=== PATIENT | female | born 1970 | race Caucasian/White ===

== ENCOUNTER 2019-01-23 09:06 | Outpatient (CLI) | payer BC, SELFPAY ==
[2019-01-23 09:35] LABS: Absolute Basophil Count 0.04 k/cumm (0.0-0.2); Absolute Eosinophil Count 0.21 k/cumm (0.0-0.7); Absolute Monocyte Count 0.39 k/cumm (0.11-0.7); Absolute Neutrophil Count 2.65 k/cumm (1.2-6.7); Basophils % 0.7; Eosinophils % 3.6; HCT 39.1 % (36.0-46.0); HGB 12.9 g/dL (12.0-15.5); Lymphocytes % 43.2; Mean Corpuscular Hemoglobin 29.5 pg (27.0-33.0); Mean Corpuscular Volume 89.3 fL (80-95); Mean Platelet Volume 9.4 fL (8.0-11.0); Monocytes % 6.7; Neutrophils % 45.8; Platelet Count 282 x1000/uL (130-400); RBC 4.38 m/cumm (4.00-5.20); RBC Distribution Width 13.2 % (11.7-14.6); White Blood Cell Count 5.79 k/cumm (4.4-10.8)
[2019-01-23 10:42] LABS: ALT 27 U/L (12-78); AST 18 U/L (15-37); Albumin 3.7 g/dL (3.4-5.0); Alkaline Phosphatase 93 U/L (46-116); Anion Gap 9.4 mmol/L (3-11); BUN 15 mg/dL (7-18); Bilirubin, Total 0.4 mg/dL (0.2-1.0); CO2 27.6 mmol/L (21.0-32.0); CREATININE 0.66 mg/dL (0.55-1.02); Calcium 8.7 mg/dL (8.5-10.1); Chloride 103 mmol/L (98-107); Cholesterol 198 mg/dL (50-200); Glucose 106 mg/dL (70-100); HDL Cholesterol 56 mg/dL (40-60); LDL CHOLESTEROL 133 mg/dL (<100); Potassium 4.2 mmol/L (3.5-5.1); Sodium 140 mmol/L (136-145); TSH 1.27 uIU/mL (0.358-3.74); Total Protein 7.1 g/dL (6.4-8.2); Triglyceride 36 mg/dL (30-150)
[2019-01-23 11:16] LABS: FREE T4 0.92 ng/dL (0.76-1.46)
[2019-01-24 16:58] LABS: T3,Free 3.4 pg/ml (2.8-5.3)
[2019-01-25 07:14] LABS: Hemoglobin A1C 5.7 % (4.5-6.2)
[2019-01-25 08:11] LABS: Vitamin D 25 Total 81.4 ng/ml (30-100)
[2019-01-25 15:16] LABS: C-Peptide 2.8 ng/mL (1.1 - 4.4)
[2019-01-28 10:44] LABS: Insulin 10.8 uU/mL (<29)
== END 2019-01-23 09:26 ==
PROVIDERS: PCP Internal Medicine; Visit Provider Naturopath
DX: Z00.00 Encounter for general adult medical examination without abnormal findings (principal); R53.83 Other fatigue; E55.9 Vitamin D deficiency, unspecified; E11.65 Type 2 diabetes mellitus with hyperglycemia; L65.9 Nonscarring hair loss, unspecified; Z13.9 Encounter for screening, unspecified; Z13.220 Encounter for screening for lipoid disorders; E66.9 Obesity, unspecified
CPT/HCPCS: 36415; 80053; 80061; 82306; 83721; 83036; 83525; 84439; 84443; 84481; 84681; 85025

== ENCOUNTER 2019-01-27 12:51 | Observation (INO) | payer BC, SELFPAY ==
[2019-01-27] VITALS (7 sets, daily range): BP systolic 140–191; BP diastolic 82–111; PULSE 56–68; RESP 16–19; TEMP 36.1–37; O2SAT 94–100
--- NOTE | 2019-01-27 13:04 | W.ED.GENAD ---
Discharge Plan Disposition Patient Disposition: [facility] INPATIENT Condition: Good Discharge Details Chief Complaint: GenMedical Clinical Impression: Hypertension, uncontrolled, Headache, Neck pain on left side, Left shoulder pain Admit Date/Time: 01/27/19 15:16 Admit Provider: Dominique Steward Attending Provider: Dominique Steward Primary Care Provider: Tolu Mattson ED Provider: Omar Tate Medical Decision Making Patient presenting with symptomatic hypertension. She is relating some left jaw/neck/shoulder pain but it does not seem to be exertional. She has no chest pressure or pain. Despite taking medications including extra dose of losartan and restarting her amlodipine her blood pressure is still elevated. Blood pressure is elevated here. She has a normal neurologic exam. Cardiovascular and respiratory also appear normal other than elevated blood pressure. She actually saw a agriscience teacher this weekend and had lab work done. Kidney function and TSH were normal then. Do not feel that I need to repeat those labs. I will get a BNP, troponin. Will get an EKG. Because of the severe headaches we will obtain a head CT for intracranial hemorrhage but given that she is neurologically intact and the headaches wax and wane I doubt this. Will obtain chest x-ray. Will need to consider admission for control of blood pressure and workup for chest pain no atypical she has significant risk factors including obesity, hypertension, diabetes and family history. We will give aspirin. We will see if BP will come down on its own prior to initiating any type of treatment. Patient's head CT is normal. Chest x-ray unremarkable. EKG with LVH which is unchanged. Troponin and BNP are normal. Blood pressure did come down to a more reasonable level on its own without treatment. On further questioning the headache is separate from the neck and shoulder pain. Cannot rule out this being an atypical cardiac presentation though seems unlikely. However, her HEART trending of troponin and symptoms. Patient aware of plan admission and agreeable. Lab Data Lab results reviewed: Yes I reviewed the patient's lab results. ECG Data Attestation: I personally reviewed and interpreted this ECG (s) as follows: Interpretation: Sinus bradycardia at 54. Normal intervals and axis. Evidence of LVH. No significant change from last year. HPI General Mode of arrival: ambulatory. Date/Time Provider Initiated Documentation: 01/27/19 13:01. Limitations to Documentation: no limitations. Information obtained by: patient. HPI Narrative: Patient presents to ED with elevated blood pressure and associated symptoms. Patient has a history of hypertension but typically has her blood pressure under control. For the last couple of days her blood pressure has been markedly elevated. She has had intermittent severe headaches. She has had left-sided neck and shoulder pain. She denies having chest pain. She denies having shortness of breath. She has had episodes of indigestion with discomfort and bloating in her epigastric region. She had stopped taking her amlodipine on her own. She restarted this last night. She actually took double dose of her losartan. Blood pressures are still running elevated. She has not had any objective neurologic symptoms other than may be feeling a little lightheaded. She has not had loss of vision, confusion, speech difficulty, focal weakness, numbness. She has taken Ativan thinking may be anxiety was driving her blood pressure up. She called primary care today and was referred to the ED for evaluation with their concern being atypical cardiac presentation. Related Data Home Medications Medication Instructions Recorded Confirmed lorazepam [Ativan] 0.5 mg PO PRN 05/17/15 01/27/19 losartan 50 mg PO DAILY 03/07/18 01/27/19 magnesium malate (bulk) 1,000 mg PO DAILY 03/07/18 01/27/19 amlodipine 5 mg tablet 5 mg PO DAILY 01/27/19 01/27/19 potassium chloride 20 meq PO BID 01/27/19 01/27/19 Allergies Allergy/AdvReac Type Severity Reaction Status Date / Time Iodinated Contrast- Oral and Allergy Severe Racing Unverified 01/27/19 13:01 IV Dye Heart,SOB,Facial [Iodinated Contrast Media - flushing IV Dye] sulfamethoxazole Allergy Severe Anaphylaxsi Unverified 01/27/19 13:01 [From Bactrim] s spironolactone Allergy Intermediate Skin Rash Unverified 01/27/19 13:01 ciprofloxacin [From Cipro] Allergy Mild Unverified 01/27/19 13:01 amiloride Allergy Unknown Unverified 01/27/19 13:01 buspirone Allergy Unknown Unverified 01/27/19 13:01 lisinopril Allergy Unknown Unverified 01/27/19 13:01 General Stated Complaint: GenMedical RADHA: 3 Review of Systems Review of Systems 10/14 Review of Systems completed and is negative except as stated above in HPI (Systems reviewed: Const, Eyes, ENT, Resp, CV, GI, , MSK, Skin, Neuro) [facility] Medical History Anxiety (Chronic) Diabetes (Chronic) Hypertension (Chronic) Surgical History Cholecystectomy (Inactive) S/P hysterectomy (Inactive) Social History Smoking/Tobacco Use Status: Former Tobacco Use Alcohol Intake: never Drug use: Never Substance use type: does not use Do you feel safe at home: Yes Do you feel safe in your relationship?: Yes Exam Narrative Exam Narrative: 1. Const: Obese female in NAD. 2. Eyes: PERRL and EOMI. No nystagmus. No conjunctival injection or scleral icterus. 3. ENT: NC/AT. No facial swelling or tenderness. Mucous membranes moist. 4. Neck: Supple. Trachea midline. 5. CVS: RRR without murmurs or gallops. Good radial pulses. 6. RESP: Unlabored respiratory effort. Clear to auscultation bilaterally. No wheezes, rales or rhonchi. 7. GI: Soft, NT/ND, no hepatosplenomegaly. No guarding or rebound. 8. MSK: No C/C/E present. No deformity or tenderness noted. 9. Skin: Warm and dry. No rashes. 10. Neuro: A&O x3. credit review analyst II-XII intact. Speech intact. Cognition normal. Sensation intact 5/5 strength throughout. FTN normal. Romberg negative. 11. Psych: Appropriate mood and affect. Course Vital Signs Temperature 97.7 F 01/27/19 12:55 Pulse 68 01/27/19 12:55 Respiratory Rate 16 01/27/19 12:55 Blood Pressure 191/111 H 01/27/19 12:55 Pulse Oximetry 99 01/27/19 12:55 Temperature 97.7 F 01/27/19 12:55 Pulse 68 01/27/19 12:55 Respiratory Rate 16 01/27/19 12:55 Blood Pressure 191/111 H 01/27/19 12:55 Blood Pressure Position Sitting 01/27/19 12:55 Pulse Oximetry 99 01/27/19 12:55 Oxygen Delivery Method Room Air 01/27/19 12:55 Oxygen Flow Rate 0 01/27/19 12:55 Pain Level 2 01/27/19 12:55
--- NOTE | 2019-01-27 13:12 | ED.GENADUL_ITS ---
Discharge Plan Disposition Patient Disposition: [facility] INPATIENT Condition: Good Discharge Details Chief Complaint: GenMedical Clinical Impression: Hypertension, uncontrolled, Headache, Neck pain on left side, Left shoulder pain Admit Date/Time: 01/27/19 15:16 Admit Provider: Dominique Steward Attending Provider: Dmoinique Steward Primary Care Provider: Tolu Mattson ED Provider: Omar Tate Medical Decision Making Patient presenting with symptomatic hypertension. She is relating some left jaw/neck/shoulder pain but it does not seem to be exertional. She has no chest pressure or pain. Despite taking medications including extra dose of losartan and restarting her amlodipine her blood pressure is still elevated. Blood pressure is elevated here. She has a normal neurologic exam. Cardiovascular and respiratory also appear normal other than elevated blood pressure. 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 Kidney function and TSH were normal then. Do not feel that I need to repeat those labs. I will get a BNP, troponin. Will get an EKG. Because of the severe headaches we will obtain a head CT for intracranial hemorrhage but given that she is neurologically intact and the headaches wax and wane I doubt this. Will obtain chest x-ray. Will need to consider admission for control of blood pressure and workup for chest pain no atypical she has significant risk factors including obesity, hypertension, diabetes and family history. We will give aspirin. We will see if BP will come down on its own prior to initiating any type of treatment. Patient's head CT is normal. Chest x-ray unremarkable. EKG with LVH which is unchanged. Troponin and BNP are normal. Blood pressure did come down to a more reasonable level on its own without treatment. On further questioning the headache is separate from the neck and shoulder pain. Cannot rule out this being an atypical cardiac presentation though seems unlikely. However, her HEART trending of troponin and symptoms. Patient aware of plan admission and agreeable. Lab Data Lab results reviewed: Yes I reviewed the patient's lab results. ECG Data Attestation: I personally reviewed and interpreted this ECG (s) as follows: Interpretation: Sinus bradycardia at 54. Normal intervals and axis. Evidence of LVH. No significant change from last year. HPI General Mode of arrival: ambulatory . Date/Time Provider Initiated Documentation: 01/27/19 13:01 . Limitations to Documentation: no limitations . Information obtained by: patient . HPI Narrative: Patient presents to ED with elevated blood pressure and associated symptoms. Patient has a history of hypertension but typically has her blood pressure under control. For the last couple of days her blood pressure has been markedly elevated. She has had intermittent severe headaches. She has had left-sided neck and shoulder pain. She denies having chest pain. She denies having shortness of breath. She has had episodes of indigestion with discomfort and bloating in her epigastric region. She had stopped taking her amlodipine on her own. She restarted this last night. She actually took double dose of her losartan. Blood pressures are still running elevated. She has not had any objective neurologic symptoms other than may be feeling a little lightheaded. She has not had loss of vision, confusion, speech difficulty, focal weakness, numbness. She has taken Ativan thinking may be anxiety was driving her blood pressure up. She called primary care today and was referred to the ED for evaluation with their concern being atypical cardiac presentation. Related Data Home Medications Medication Instructions Recorded Confirmed lorazepam [Ativan] 0.5 mg PO PRN 05/17/15 01/27/19 losartan 50 mg PO DAILY 03/07/18 01/27/19 magnesium malate (bulk) 1,000 mg PO DAILY 03/07/18 01/27/19 amlodipine 5 mg tablet 5 mg PO DAILY 01/27/19 01/27/19 potassium chloride 20 meq PO BID 01/27/19 01/27/19 Allergies Allergy/AdvReac Type Severity Reaction Status Date / Time Iodinated Contrast- Oral and Allergy Severe Racing Unverified 01/27/19 13:01 IV Dye Heart,SOB,Facial [Iodinated Contrast Media - flushing IV Dye] sulfamethoxazole Allergy Severe Anaphylaxsi Unverified 01/27/19 13:01 [From Bactrim] s spironolactone Allergy Intermediate Skin Rash Unverified 01/27/19 13:01 ciprofloxacin [From Cipro] Allergy Mild Unverified 01/27/19 13:01 amiloride Allergy Unknown Unverified 01/27/19 13:01 buspirone Allergy Unknown Unverified 01/27/19 13:01 lisinopril Allergy Unknown Unverified 01/27/19 13:01 General Stated Complaint: GenMedical RADHA: 3 Review of Systems Review of Systems 10/14 Review of Systems completed and is negative except as stated above in HPI (Systems reviewed: Const, Eyes, ENT, Resp, CV, GI, , MSK, Skin, Neuro) [facility] Medical History Anxiety (Chronic) Diabetes (Chronic) Hypertension (Chronic) Surgical History Cholecystectomy (Inactive) S/P hysterectomy (Inactive) Social History Smoking/Tobacco Use Status: Former Tobacco Use Alcohol Intake: never Drug use: Never Substance use type: does not use Do you feel safe at home: Yes Do you feel safe in your relationship?: Yes Exam Narrative Exam Narrative: 1. Const: Obese female in NAD. 2. Eyes: PERRL and EOMI. No nystagmus. No conjunctival injection or scleral icterus. 3. ENT: NC/AT. No facial swelling or tenderness. Mucous membranes moist. 4. Neck: Supple. Trachea midline. 5. CVS: RRR without murmurs or gallops. Good radial pulses. 6. RESP: Unlabored respiratory effort. Clear to auscultation bilaterally. No wheezes, rales or rhonchi. 7. GI: Soft, NT/ND, no hepatosplenomegaly. No guarding or rebound. 8. MSK: No C/C/E present. No deformity or tenderness noted. 9. Skin: Warm and dry. No rashes. 10. Neuro: A&O x3. director airport II-XII intact. Speech intact. Cognition normal. Sensation intact 5/5 strength throughout. FTN normal. Romberg negative. 11. Psych: Appropriate mood and affect. Course Vital Signs Temperature 97.7 F 01/27/19 12:55 Pulse 68 01/27/19 12:55 Respiratory Rate 16 01/27/19 12:55 Blood Pressure 191/111 H 01/27/19 12:55 Pulse Oximetry 99 01/27/19 12:55 Temperature 97.7 F 01/27/19 12:55 Pulse 68 01/27/19 12:55 Respiratory Rate 16 01/27/19 12:55 Blood Pressure 191/111 H 01/27/19 12:55 Blood Pressure Position Sitting 01/27/19 12:55 Pulse Oximetry 99 01/27/19 12:55 Oxygen Delivery Method Room Air 01/27/19 12:55 Oxygen Flow Rate 0 01/27/19 12:55 Pain Level 2 01/27/19 12:55
[2019-01-27] MEDS: Aspirin 81 MG CHEW 324 MG CH (14:01)
--- NOTE | 2019-01-27 14:27 | DI.CT_ITS ---
SYMPTOMS/DIAGNOSIS: HEADACHE CT BRAIN, NONCONTRAST EXAMINATION: A noncontrast cranial CT was performed. The ventricular system is normal in appearance. There is no evidence of an intracranial mass lesion. There is no evidence of a subdural or epidural hematoma. No focal areas of decreased attenuation are seen. IMPRESSION: Normal noncontrast cranial CT. The findings were discussed with the Emergency Department on the date of the examination.
--- NOTE | 2019-01-27 14:35 | DI.RAD_ITS ---
SYMPTOMS/DIAGNOSIS: ELEVATED BP CHEST X-RAY, PA AND LATERAL: Comparison is 03/07/18. The heart is normal in size. The lungs are clear. The mediastinal structures and pleura appear intact. IMPRESSION: Normal chest.
[2019-01-27 14:38] LABS: NT-proBNP 81 pg/mL
[2019-01-27 14:39] LABS: Troponin I < 0.02 ng/mL (0.00-0.06)
--- NOTE | 2019-01-27 14:50 | NUR.NOTE ---
patient denies chest pain, headache is not bad Nursing Note:
[2019-01-27] MEDS: Normal Saline 1,000 ML 50 ML IV (17:52)
--- NOTE | 2019-01-27 19:02 | W.PM.HP.N ---
Date of service: 01/27/19 Time of Service: 19:03 Assessment and Plan (1) Atypical chest pain: Current visit: Yes Status: Acute Specifically referring to L neck and shoulder pain. I wonder if this isn't due to cervical arthritis - however, will r/o ACS given strong family hx of early CAD. (2) Hypertensive urgency: Current visit: Yes Status: Acute Already improved. Continue losartan; patient was on amlodipine at some point, but wasn't taking it consistently at home. Will reinitiated it. For now, will also provide very gentle IV fluids to compensate for pressure natriuresis. (3) Family history of early CAD: Current visit: Yes Status: Acute As above. Will obtain serial troponins, echo. Patient would benefit from a stress test while in the hospital (4) Headache: Current visit: Yes Status: Acute I do not know if the headache was due to hypertensive urgency or if it caused it. At this point, it appears to be resolved. (5) KARMEN (obstructive sleep apnea): Current visit: Yes Status: Chronic Provide home cpap tonight. (6) Diet-controlled type 2 diabetes mellitus: Current visit: Yes Status: Chronic SSI/accuchecks while in the hospital (7) Anxiety: Current visit: Yes Status: Chronic provide prn ativan (8) Obesity: Current visit: Yes Status: Chronic encourage life style changes (9) Discharge planning issues: Current visit: Yes Status: Acute full code likely discharge home on Friday after stress test (10) DVT prophylaxis: Current visit: Yes Status: Acute lovenox History of Present Illness Chief Complaint: headache, L neck and shoulder pain, high blood pressure Narrative: Ms Holley is a 49 year old female with PMHx of diet controlled diabetes, paroxysmal Afib, not on anticoagulation, hypertension, KARMEN on CPAP, obesity with BMI of 48, anxiety, whose mother and maternal grandmother had heart attacks at the age of 47, who presented to [facility] ED today complaining of a posterior pounding headache for 3 days, accompanied by SBP in 170's and 180's at home and L ear, neck and L shoulder pain yesterday. Today, in the ED, her BP was 191/111 when she first presented. Her ED workup consisted of an EKG, revealing LVH, but no acute ischemia, CT of the head (normal) and chest x-ray (normal). The BP did go down on its own to 148/86, without any medications being given. The patient states that she now already feels a lot better. Her pounding headache is gone. When talking about what may have precipitated this, she admits to having a history of anxiety, but she took ativan all 3 days, and did not get any relief. She endorses the feeling of anxiety this morning as well as tingling in her B hands, which went away. She does not name neck pain as a symptom she has, but states she will get an occasional R-sided muscle spasm. We were asked to observe the patient for the next 24-48 hours with an ischemic workup, given the seriousness of her risk factors. Review of Systems Review of Systems 12 systems reviewed. Pertinent positives and negatives are as per HPI. Additionally, reports some indigestion and belching yesterday. Does endorse some anxiety, large volume urination and weight loss of 6 lbs in 3 days. [facility] Medical History GERD (gastroesophageal reflux disease) (Chronic) KARMEN (obstructive sleep apnea) (Chronic) Paroxysmal A-fib (Chronic) Anxiety (Chronic) Diabetes (Chronic) Hypertension (Chronic) Surgical History H/O right wrist surgery (Chronic) Cholecystectomy (Inactive) S/P hysterectomy (Inactive) Family History Mother Heart disease Diabetes Hypertension Breast cancer Maternal Grandmother Heart disease Diabetes Hypertension Breast cancer Maternal Aunt Heart disease Maternal Grandfather Stroke Brother Stroke Social History Smoking/Tobacco Use Status: Former Tobacco Use Alcohol Intake: never Drug use: Never Substance use type: does not use Do you feel safe at home: Yes Do you feel safe in your relationship?: Yes Meds Home Medications Medication Instructions Recorded Confirmed Type lorazepam [Ativan] 0.5 mg PO PRN 05/17/15 01/27/19 History losartan 50 mg PO DAILY 03/07/18 01/27/19 History amlodipine 5 mg tablet 5 mg PO DAILY 01/27/19 01/27/19 History cholecalciferol (vitamin D3) 10,000 unit PO DAILY 01/27/19 01/27/19 History magnesium citrate 5 - 10 ml PO HS 01/27/19 01/27/19 History magnesium glycinate 200 mg PO BID 01/27/19 01/27/19 History potassium chloride 20 meq PO BID 01/27/19 01/27/19 History vitamin K2 40 mcg PO DAILY 01/27/19 01/27/19 History Allergies Allergy/AdvReac Type Severity Reaction Status Date / Time Iodinated Contrast- Oral and Allergy Severe Racing Unverified 01/27/19 13:01 IV Dye Heart,SOB,Facial [Iodinated Contrast Media - flushing IV Dye] sulfamethoxazole Allergy Severe Anaphylaxsi Unverified 01/27/19 13:01 [From Bactrim] s spironolactone Allergy Intermediate Skin Rash Unverified 01/27/19 13:01 ciprofloxacin [From Cipro] Allergy Mild Unverified 01/27/19 13:01 amiloride Allergy Unknown Unverified 01/27/19 13:01 buspirone Allergy Unknown Unverified 01/27/19 13:01 lisinopril Allergy Unknown Unverified 01/27/19 13:01 Exam Narrative Exam Narrative: General: very pleasant, anxious obese female, A&Ox3, laying in bed Neuro: A&OX3, no focal deficits Psychiatric: anxious Skin: intact HEENT: EOMI, MMM, atraumatic, normocephalic, clear oropharynx, no submandibular or cervical lymphadenopathy, no goiter or JVD Heart: RRR, no m/r/g, occasional extra beat Lungs: CTAB GI: abdomen is soft, nontender, nondistended Extremities: no edema, clubbing or cyanosis, +1 BLE pedal pulses. Results Imaging Additional studies: EKG: HR 54, no acute ischemia, LVH CT head: Normal noncontrast cranial CT. CXR: Normal chest. Labs : 01/27/19 13:32 Laboratory Results - last 24 hr 01/27/19 01/27/19 13:32 14:11 Sodium Cancelled Potassium Cancelled Chloride Cancelled Carbon Dioxide Cancelled Anion Gap Cancelled BUN Cancelled Creatinine Cancelled Estimated GFR/1.73 m2 Cancelled Glucose Cancelled Calcium Cancelled Magnesium 2.0 Troponin I < 0.02 NT-Pro-B Natriuret Pep 81 TSH Cancelled Last Vital Signs Temp 36.9 C 04/10/19 16:57 Pulse 67 01/27/19 16:57 Resp 16 01/27/19 16:57 BP 140/93 H 01/27/19 16:57 Pulse Ox 94 L 01/27/19 16:57
[2019-01-27] MEDS: Potassium Chloride 20 MEQ TABCR PO (20:34)
[2019-01-27 22:25] LABS: Troponin I < 0.02 ng/mL (0.00-0.06)
[2019-01-28] VITALS (7 sets, daily range): BP systolic 134–151; BP diastolic 78–93; PULSE 55–73; RESP 17–19; TEMP 36.1–37.1; O2SAT 96–98
[2019-01-28 06:15] LABS: Abs Immature Grans 0.01 k/cumm (0.0-0.09); Absolute Basophil Count 0.05 k/cumm (0.0-0.2); Absolute Eosinophil Count 0.27 k/cumm (0.0-0.7); Absolute Monocyte Count 0.48 k/cumm (0.11-0.7); Absolute Neutrophil Count 3.04 k/cumm (1.2-6.7); Basophils % 0.8; Eosinophils % 4.4; HCT 38.4 % (36.0-46.0); HGB 12.9 g/dL (12.0-15.5); Immature Grans % 0.2; Lymphocytes % 37.4; Mean Corp. HGB Concentration 33.6 g/dL (32.0-36.0); Mean Corpuscular Hemoglobin 29.9 pg (27.0-33.0); Mean Corpuscular Volume 88.9 fL (80-95); Mean Platelet Volume 9.4 fL (8.0-11.0); Monocytes % 7.8; Neutrophils % 49.4; Platelet Count 276 x1000/uL (130-400); RBC 4.32 m/cumm (4.00-5.20); RBC Distribution Width 13.3 % (11.7-14.6); White Blood Cell Count 6.15 k/cumm (4.4-10.8)
[2019-01-28 06:35] LABS: Cholesterol 194 mg/dL (50-200); HDL Cholesterol 57 mg/dL (40-60); LDL CHOLESTEROL 123 mg/dL (<100); Triglyceride 42 mg/dL (30-150)
[2019-01-28 06:44] LABS: BUN 10 mg/dL (7-18); CREATININE 0.61 mg/dL (0.55-1.02); Calcium 8.8 mg/dL (8.5-10.1); Chloride 104 mmol/L (98-107); Glucose 99 mg/dL (70-100); Magnesium 1.9 mg/dL (1.8-2.4); Potassium 4.1 mmol/L (3.5-5.1); Sodium 141 mmol/L (136-145); TSH (W/Ref FT4) 2.04 uIU/mL (0.358-3.74)
[2019-01-28 06:47] LABS: Troponin I < 0.02 ng/mL (0.00-0.06)
[2019-01-28] MEDS: Potassium Chloride 20 MEQ TABCR PO (08:48)
[2019-01-28] MEDS: amLODIPine 5 MG TAB PO (08:48)
[2019-01-28] MEDS: Aspirin E.C. 81 MG TABEC PO (08:48)
[2019-01-28] MEDS: Losartan 50 MG TAB PO (08:48)
--- NOTE | 2019-01-28 11:48 | PHARADMIT ---
Admission Pharmacy Clinical Review HYPERTENSIVE URGENCY Code Status Full Code Current Weight Wgt- 134.4 kg Renally Cleared and Narrow Therapeutic Index Meds CrCl~ 80.5 mL/min Meds-OK QTc Value / Action Taken none current BP Control, Fever BP- 150/92 Tmax- 36.5C Electrolytes reviewed Na- 141 K+4.1 Mag-1.9 DVT Prophylaxis Lovenox-40mg Opiate Usage / Scheduled Bowel Regimen Ordered No Yes Plt/SCr for Heparin / Enoxaparin Plts- 276 SCr- 0.61 INR for Warfarin na H/H stable, WBC/Bands H&H- 12.9/38.4 WBC- 6.15 Antibiotic appropriateness none Cultures and Sensitivities none Surgical ABX d/c within 24 hr na DM control / Insulin Dosing BG-99 Aspart Heart Failure (Check EF%) (NABEEL's, B-Block, Diuretics) Norvasc, Losartan, ASA-ec, IV to PO Switch No Home Meds Reviewed Yes Home Meds Not Ordered Vitamin-K, Vitamin-D Comments
--- NOTE | 2019-01-28 14:13 | CHAPLAIN ---
Jimena was resting in bed when I visited. She was looking at her phone. Her was with her. I introduced myself and explained my role. She did not seem interested in further conversation. I got a cup of coffee for her .
--- NOTE | 2019-01-28 16:11 | W.PM.DS.N ---
Date of service: 01/28/19 Time of Service: 16:11 DS: Diagnosis Discharge Diagnosis (1) Atypical chest pain: Status: Acute (2) Hypertensive urgency: Status: Acute (3) Family history of early CAD: Status: Acute (4) Headache: Status: Acute (5) KARMEN (obstructive sleep apnea): Status: Chronic (6) Diet-controlled type 2 diabetes mellitus: Status: Chronic (7) Anxiety: Status: Chronic (8) Obesity: Status: Chronic Discharge Plan Disposition Patient Disposition: HOME Condition: Good Discharge Details Reason For Visit: HYPERTENSIVE URGENCY Admit Date/Time: 01/27/19 15:16 Admit Provider: Dominique Steward Attending Provider: Dominique Steward Primary Care Provider: Tolu Mattson Hospital Course Hospital Course: Ms Holley is a 49 year old female with PMHx of HTN, paroxysmal Afib, GERD, KRAMEN, diet controlled diabetes, obesity with BMI of 48, placed in observation overnight at [facility] after presenting with 2 days of pounding headache, L neck pain and shoulder pain in setting of uncontrolled hypertension. Her headache/neck pain/shoulder pain resolved after the BP came down on its own. She was monitored on telemetry without any arrhythmic events. Her troponins were negative x3. Her lipids were at goal. While ideally the patient would get an inpatient stress test as well as an echo prior to discharge, we were just notified that there will not be any stress tests available at [facility] for >72 hours. Patient is now symptom free and her BP has improved on amlodipine 5 mg and losartan 50 mg. She was advised to monitor her sodium intake and to restrict it to 2 grams of sodium per day. She agrees to follow up for her stress test and echo as outpatient and is being discharged home tonight. She is to follow up with her PCP as well. She is being started on a baby aspirin on discharge. Home Meds and New Rx's Prescriptions: New losartan 50 mg Tablet 100 mg PO DAILY Qty: 30 RF: 0 aspirin 81 mg Tablet,Delayed Release (Dr/Ec) 81 mg PO DAILY Qty: 30 RF: 0 Continued amlodipine 5 mg tablet 5 mg PO DAILY RF: 0 lorazepam [Ativan] 0.5 MG tablet 0.5 mg PO DAILY PRN PRN (Reason: Anxiety) RF: 0 potassium chloride 20 mEq Tablet Extended Release 20 meq PO BID RF: 0 vitamin K2 40 mcg Tablet 40 mcg PO DAILY RF: 0 magnesium citrate Solution 5 - 10 ml PO HS RF: 0 magnesium glycinate 100 mg Tablet 200 mg PO BID RF: 0 cholecalciferol (vitamin D3) 10,000 unit Tablet 10,000 unit PO DAILY RF: 0 Discontinued losartan 50 MG tablet 50 mg PO DAILY RF: 0 Discharge Instructions Instructions: Heart Healthy Diet (DC), Chronic Hypertension (DC), Hypertensive Crisis (DC), Coronary Artery Disease in Women (DC) Additional Instructions: Follow up with your PCP in 1-2 weeks. Follow up for outpatient stress test as well as echo. Return to the hospital with any fever, bleeding, chest pain, shortness of breath or recurrence of symptoms. Stand Alone Forms: Nursing Discharge Form Referrals: Tolu Mattson [Primary Care Provider] - Activity:: Activity as Tolerated Equipment/Supplies:: No Equipment Needed Diet:: Low Sodium Discharge Orders Discharge Orders: Discharge Order (Routine); Ordered 01/28/19 Ordered By: Dominique Steward Other Ambulatory Orders: US echocardiogram (Routine) Timeframe: 1 Week Facility: [facility] - Location: DIAGNOSTIC IMAGING Ordered By: Dominique Steward NM MPI rest & stress grp (Routine) Timeframe: 1 Week Facility: [facility] - Location: STRESS LAB Ordered By: Dominique Steward Exam Narrative Exam Narrative: General: very pleasant, anxious obese female, A&Ox3 HEENT: EOMI, MMM, atraumatic, normocephalic, clear oropharynx, no submandibular or cervical lymphadenopathy, no goiter or JVD Heart: RRR, no m/r/g, occasional extra beat Lungs: CTAB GI: abdomen is soft, nontender, nondistended Extremities: no edema, clubbing or cyanosis, +1 BLE pedal pulses. DS: Data Vitals/I&O Vitals and I&O: Vital Signs Temperature 36.5 C 01/28/19 11:27 Temperature Source Tympanic 01/28/19 11:27 Pulse 59 L 01/28/19 11:27 Pulse Rhythm Regular 01/28/19 11:29 Respiratory Rate 19 01/28/19 11:27 Respiratory Effort Non-Labored 01/28/19 11:29 Respiratory Depth Normal 01/28/19 11:29 Respiratory Pattern Normal 01/28/19 11:29 Blood Pressure 150/92 H 01/28/19 11:27 Blood Pressure Position Sitting 01/27/19 12:55 Pulse Oximetry 96 01/28/19 11:27 Oxygen Delivery Method Room Air 01/28/19 11:27 Oxygen Flow Rate 0 01/28/19 11:27 Pain Level 0 01/28/19 11:27 Intake & Output 01/27/19 01/28/19 01/28/19 23:59 11:59 23:59 Intake Total 480 / 1720 1240 / 1720 Output Total 1200 / 1200 1000 / 1000 Balance -1200 / -1200 -520 / 720 1240 / 720 Weight 133.356 kg 134.39 kg Intake: IV 1000 / 1000 Oral 480 / 720 240 / 720 Output: Urine 1200 / 1200 1000 / 1000 Other: Urine Color Yellow Yellow Urine Appearance Clear Clear Urine Odor Normal Normal Voiding Methods Toilet Toilet Completed studies during hospitalization [Text1]: CT brain: Normal noncontrast cranial CT. CXR: Normal chest. Labs on day of discharge: Labs from last 24 hours 01/28/19 01/28/19 01/28/19 06:00 06:00 06:00 WBC 6.15 RBC 4.32 Hgb 12.9 Hct 38.4 MCV 88.9 MCH 29.9 MCHC 33.6 RDW 13.3 Plt Count 276 MPV 9.4 Immature Gran % 0.2 Neutrophils % 49.4 Lymphocytes % 37.4 Monocytes % 7.8 Eosinophils % 4.4 Basophils % 0.8 Absolute Neutrophils 3.04 Absolute Lymphocytes 2.30 Absolute Monocytes 0.48 Absolute Eosinophils 0.27 Absolute Basophils 0.05 Sodium 141 Potassium 4.1 Chloride 104 Carbon Dioxide 26.0 Anion Gap 11.0 BUN 10 Creatinine 0.61 Estimated GFR/1.73 m2 >= 60.00 Glucose 99 Calcium 8.8 Magnesium 1.9 Troponin I < 0.02 Triglycerides 42 Total Cholesterol 194 LDL Cholesterol Direct 123 H HDL Cholesterol 57 TSH 2.04 01/27/19 21:55 WBC RBC Hgb Hct MCV MCH MCHC RDW Plt Count MPV Immature Gran % Neutrophils % Lymphocytes % Monocytes % Eosinophils % Basophils % Absolute Neutrophils Absolute Lymphocytes Absolute Monocytes Absolute Eosinophils Absolute Basophils Sodium Potassium Chloride Carbon Dioxide Anion Gap BUN Creatinine Estimated GFR/1.73 m2 Glucose Calcium Magnesium Troponin I < 0.02 Triglycerides Total Cholesterol LDL Cholesterol Direct HDL Cholesterol TSH PFSH Medical History GERD (gastroesophageal reflux disease) (Chronic) KARMEN (obstructive sleep apnea) (Chronic) Paroxysmal A-fib (Chronic) Anxiety (Chronic) Diabetes (Chronic) Hypertension (Chronic) Surgical History H/O right wrist surgery (Chronic) Cholecystectomy (Inactive) S/P hysterectomy (Inactive) Family History Mother Heart disease Diabetes Hypertension Breast cancer Maternal Grandmother Heart disease Diabetes Hypertension Breast cancer Maternal Aunt Heart disease Maternal Grandfather Stroke Brother Stroke Social History Smoking/Tobacco Use Status: Former Tobacco Use Alcohol Intake: never Drug use: Never Substance use type: does not use Do you feel safe at home: Yes Do you feel safe in your relationship?: Yes
--- NOTE | 2019-01-29 12:28 | PDOC.CMPRO ---
Care Management Progress Note Cyndi called reporting she discharged from [facility] last night with outpatient referrals for ECHO and Stress Test, she [place] [facility] [place] requested this filing writer fax referral/[place] summary [place] [facility] [place] [facility] [place] CM fax[place] requested documentation [place] [facility] [place] F#[phone].
--- NOTE | 2019-01-29 12:32 | CMPROGNOTE_ITS ---
Care Management Progress Note Cyndi called reporting she discharged from [facility] last night with outpatient referrals for ECHO and Stress Test, she reported having an established provider at [facility] and requested this writer producer fax referral/discharge summary to [facility] for follow up at [facility]. CM faxed requested documentation to [facility] F#[phone].
== END 2019-01-28 18:15 | disposition home or self-care (01) ==
LOC: ER 15:27 → ICU 16:05 → MS 16:15
PROVIDERS: Admitting Provider Internal Medicine; Emergency Provider Emergency Medicine; PCP Internal Medicine; Visit Provider Internal Medicine
DX: I16.0 Hypertensive urgency (principal); R07.89 Other chest pain; I10 Essential (primary) hypertension; R51 Headache; M54.2 Cervicalgia; M25.512 Pain in left shoulder; K30 Functional dyspepsia; E11.9 Type 2 diabetes mellitus without complications; I48.0 Paroxysmal atrial fibrillation; K21.9 Gastro-esophageal reflux disease without esophagitis; G47.33 Obstructive sleep apnea (adult) (pediatric); F41.9 Anxiety disorder, unspecified; Z82.49 Family history of ischemic heart disease and other diseases of the circulatory system; Z71.3 Dietary counseling and surveillance
CPT/HCPCS: 36415; 80048; 80061; 83721; 93005; 99217; 99220; 99285; 70450; 71046; 83735; 83880; 84443; 84484; 85025; 93010; G0378

== ENCOUNTER 2019-03-12 00:34 | Outpatient (CLI) | payer BC, SELFPAY ==
--- NOTE | 2019-03-12 12:58 | DI.US_ITS ---
SYMPTOMS/DIAGNOSIS: BULGE/MASS IN PERIUMBILICAL REGION WHEN DOING A SIT-UP, ABOVE UMBILICUS, R19.0 ULTRASOUND OF THE ABDOMINAL WALL: Comparison is made with CT of the abdomen and pelvis dated February,. That exam showed diastasis of the rectus muscles. There is only a small amount of fat visible at the umbilicus. The current exam does not demonstrate a hernia. No cyst or mass is identified. There appears to be thinning between the rectus muscles, similar to the appearance of the previous CT. IMPRESSION: Diastasis rectus. No evidence of hernia.
== END 2019-03-12 00:54 ==
PROVIDERS: PCP Internal Medicine; Visit Provider Naturopath
DX: R19.05 Periumbilic swelling, mass or lump (principal); M62.08 Separation of muscle (nontraumatic), other site
CPT/HCPCS: 76857

== ENCOUNTER 2019-03-17 11:48 | Outpatient (CLI) | payer BC, SELFPAY ==
[2019-03-17 12:15] LABS: Kit/Specimen SENT
[2019-03-17 13:37] LABS: Potassium 4.1 mmol/L (3.5-5.1); Sodium 140 mmol/L (136-145); Vitamin B12 1495 pg/mL (193-986)
== END 2019-03-17 12:08 ==
PROVIDERS: PCP Internal Medicine; Visit Provider Naturopath
DX: R53.83 Other fatigue (principal); E87.6 Hypokalemia; D52.9 Folate deficiency anemia, unspecified; I48.91 Unspecified atrial fibrillation; I10 Essential (primary) hypertension
CPT/HCPCS: 36415; 82607; 84132; 84295

== ENCOUNTER 2019-05-06 00:28 | Outpatient (CLI) | payer BC, SELFPAY ==
--- NOTE | 2019-05-06 08:25 | DI.MAMMO_ITS ---
SYMPTOM/DIAGNOSIS: SCREENING, Z12.31 MAMMOGRAMS: Mammograms were interpreted according to the usual protocol including computer analysis with CAD system, tomosynthesis and C view imaging. The breast tissue is of moderate radiodensity. There is no evidence of a mass. There has been no suspicious calcifications and there has been no significant interval change when compared with prior images. SUMMARY: No evidence of malignancy. Category 1, yearly screening mammography is recommended. Breast density category B. SA ASSESSMENT OF FINDINGS: Negative. Category 1. Patient will receive a letter notifying them of these results. BI-RADS category B. There are scattered areas of fibroglandular density.
== END 2019-05-06 00:48 ==
PROVIDERS: PCP Naturopath; Visit Provider Nurse Practitioner Women's Health
DX: Z12.31 Encounter for screening mammogram for malignant neoplasm of breast (principal)
CPT/HCPCS: 77063; 77067

== ENCOUNTER 2019-06-22 07:09 | Outpatient (CLI) | payer BC, SELFPAY ==
[2019-06-22 08:18] LABS: Hemoglobin A1C 5.7 % (4.5-6.2)
[2019-06-22 09:07] LABS: Glucose 95 mg/dL (70-100); Potassium 3.9 mmol/L (3.5-5.1)
[2019-06-22 21:45] LABS: Progesterone 0.5 ng/ml
[2019-06-23 19:54] LABS: C-Peptide 2.5 ng/mL (1.1 - 4.4)
[2019-06-24 10:32] LABS: Insulin 9.6 uU/mL (<29)
== END 2019-06-22 07:29 ==
PROVIDERS: PCP Naturopath; Visit Provider Naturopath
DX: E11.65 Type 2 diabetes mellitus with hyperglycemia (principal); I48.91 Unspecified atrial fibrillation; E87.6 Hypokalemia; I10 Essential (primary) hypertension; E66.3 Overweight
CPT/HCPCS: 36415; 82947; 83036; 83525; 84132; 84144; 84681

== ENCOUNTER 2019-09-05 09:24 | Outpatient (CLI) | payer BC, SELFPAY ==
[2019-09-05 10:38] LABS: Potassium 4.1 mmol/L (3.5-5.1)
[2019-09-07 16:19] LABS: Estradiol 26 pg/mL (See Note)
[2019-09-10 16:26] LABS: Testosterone, Free 0.26 ng/dL (0.06-0.95); Testosterone, Total 17 ng/dL (8-60)
[2019-09-10 17:14] LABS: Dehydroepiandrosterone (DHEA) 2.9 ng/mL (<8.0)
[2019-09-14 08:42] LABS: DHEA Sulfate 87.7 ug/dL (56-283)
== END 2019-09-05 09:44 ==
PROVIDERS: PCP Naturopath; Visit Provider Naturopath
DX: R53.83 Other fatigue (principal); E11.65 Type 2 diabetes mellitus with hyperglycemia; E87.6 Hypokalemia; E01.8 Other iodine-deficiency related thyroid disorders and allied conditions; N95.1 Menopausal and female climacteric states; E28.2 Polycystic ovarian syndrome; E66.3 Overweight
CPT/HCPCS: 36415; 82627; 84402; 84403; 82626; 82670; 84132

== ENCOUNTER 2019-09-05 09:54 | Outpatient (REF) | payer BC, SELFPAY ==
[2019-09-08 20:59] LABS: Iodine, 24 hr Urine 190 mcg/24 h (75 - 851); Urine Volume 2200 mL
== END 2019-09-05 10:14 ==
LOC: LBN 09:54
PROVIDERS: PCP Naturopath; Visit Provider Naturopath
DX: E01.8 Other iodine-deficiency related thyroid disorders and allied conditions (principal); N95.1 Menopausal and female climacteric states; E28.2 Polycystic ovarian syndrome; R53.83 Other fatigue; E11.65 Type 2 diabetes mellitus with hyperglycemia; E87.6 Hypokalemia; E66.3 Overweight
CPT/HCPCS: 81050; 83018

== ENCOUNTER 2019-10-14 14:13 | Outpatient (CLI) | payer BC, SELFPAY ==
[2019-10-14 22:26] LABS: Progesterone 4.9 ng/mL (See Table)
== END 2019-10-14 14:33 ==
PROVIDERS: PCP Naturopath; Visit Provider Naturopath
DX: R53.83 Other fatigue (principal); I10 Essential (primary) hypertension; N95.1 Menopausal and female climacteric states
CPT/HCPCS: 36415; 84144

== ENCOUNTER 2019-12-21 09:07 | Outpatient (CLI) | payer BC, SELFPAY ==
[2019-12-21 10:47] LABS: Hemoglobin A1C 5.7 % (3.8-5.6)
[2019-12-21 11:40] LABS: Calculated LDL 145 mg/dL (<100); Cholesterol 219 mg/dL (<200); HDL Cholesterol 68 mg/dL (40-60); TSH 1.55 uIU/mL (0.36-3.74); Triglyceride 34 mg/dL (<150)
[2019-12-21 16:41] LABS: T3,Free 3.1 pg/mL (2.8-5.3)
[2019-12-23 05:26] LABS: Vitamin D 25 Total 81.1 ng/ml (30-100)
[2019-12-23 11:11] LABS: Insulin 12.3 uIU/mL (<29.0)
== END 2019-12-21 09:27 ==
PROVIDERS: PCP Naturopath; Visit Provider Naturopath
DX: N95.1 Menopausal and female climacteric states (principal); E55.9 Vitamin D deficiency, unspecified; E11.65 Type 2 diabetes mellitus with hyperglycemia; I10 Essential (primary) hypertension; I70.91 Generalized atherosclerosis; R00.2 Palpitations; R53.83 Other fatigue; E01.8 Other iodine-deficiency related thyroid disorders and allied conditions; E66.9 Obesity, unspecified
CPT/HCPCS: 36415; 80061; 82306; 83018; 83036; 83525; 84439; 84443; 84481

== ENCOUNTER 2020-01-01 10:55 | Outpatient (REF) | payer BC, SELFPAY ==
[2020-01-03 22:08] LABS: Iodine, 24 hr Urine 132 mcg/24 h (75 - 851); Urine Volume 2725 mL
== END 2020-01-01 11:15 ==
LOC: LBN 10:55
PROVIDERS: PCP Naturopath; Visit Provider Naturopath
DX: E11.65 Type 2 diabetes mellitus with hyperglycemia (principal); E55.9 Vitamin D deficiency, unspecified; I10 Essential (primary) hypertension; I70.91 Generalized atherosclerosis; R00.2 Palpitations; R53.83 Other fatigue; E01.8 Other iodine-deficiency related thyroid disorders and allied conditions; E66.9 Obesity, unspecified; N95.1 Menopausal and female climacteric states
CPT/HCPCS: 81050; 83018

== ENCOUNTER 2020-02-11 09:43 | Outpatient (CLI) | payer BC, SELFPAY ==
[2020-02-12 14:05] LABS: COVID-19 RT-PCR UVMMC Result Negative (Negative)
== END 2020-02-11 10:03 ==
PROVIDERS: PCP Naturopath; Visit Provider Naturopath
DX: Z11.59 Encounter for screening for other viral diseases (principal)
CPT/HCPCS: U0003

== ENCOUNTER 2020-03-22 02:37 | Outpatient (CLI) | payer BC, SELFPAY ==
[2020-03-22 08:46] LABS: Abs Immature Grans 0.01 k/cumm (0.0-0.09); Absolute Basophil Count 0.02 k/cumm (0.0-0.2); Absolute Eosinophil Count 0.12 k/cumm (0.0-0.7); Absolute Lymphocyte Count 2.41 k/cumm (1.2-3.4); Absolute Monocyte Count 0.44 k/cumm (0.11-0.7); Absolute Neutrophil Count 2.92 k/cumm (1.2-6.7); Basophils % 0.3; HGB 12.5 g/dL (12.0-15.5); Immature Grans % 0.2 %; Lymphocytes % 40.7; Mean Corp. HGB Concentration 32.9 g/dL (32.0-36.0); Mean Corpuscular Hemoglobin 29.4 pg (27.0-33.0); Mean Corpuscular Volume 89.4 fL (80-95); Mean Platelet Volume 9.5 fL (8.0-11.0); Monocytes % 7.4; Neutrophils % 49.4; Platelet Count 313 x1000/uL (130-400); RBC 4.25 m/cumm (4.00-5.20); RBC Distribution Width 13.3 % (11.7-14.6); White Blood Cell Count 5.92 k/cumm (4.4-10.8)
[2020-03-22 08:56] LABS: Hemoglobin A1C 5.6 % (3.8-5.6)
[2020-03-22 09:23] LABS: ALT 22 U/L (14-59); AST 14 U/L (15-37); Albumin 3.7 g/dL (3.4-5.0); Alkaline Phosphatase 90 U/L (46-116); Anion Gap 6.4 mmol/L (3-11); BUN 14 mg/dL (7-18); Bilirubin, Total 0.5 mg/dL (0.2-1.0); CO2 28.6 mmol/L (21.0-32.0); CREATININE 0.65 mg/dL (0.55-1.02); Calcium 8.6 mg/dL (8.5-10.1); Chloride 103 mmol/L (98-107); FREE T4 0.99 ng/dL (0.76-1.46); Glucose 103 mg/dL (74-106); Potassium 4.2 mmol/L (3.5-5.1); Sodium 138 mmol/L (136-145); TSH 1.59 uIU/mL (0.36-3.74); Total Protein 6.9 g/dL (6.4-8.2)
[2020-03-22 09:35] LABS: Calculated LDL 143 mg/dL (<100); Cholesterol 217 mg/dL (<200); HDL Cholesterol 69 mg/dL (40-60); T4 8.5 ug/mL (4.7-13.3); Triglyceride 28 mg/dL (<150)
[2020-03-22 17:49] LABS: T3,Free 3.4 pg/mL (2.8-5.3)
[2020-03-22 18:19] LABS: Progesterone 0.3 ng/mL (See Table)
[2020-03-23 09:37] LABS: Insulin 9.9 uIU/mL (<29.0)
[2020-03-23 10:25] LABS: Thyroglobulin Antibody <15 U/mL (<=60); Thyroperoxidase Antibody 170 U/mL (<=60)
[2020-03-23 15:33] LABS: C-Peptide 2.9 ng/mL (1.1 - 4.4)
[2020-03-27 16:33] LABS: T3 (Triiodothyronine) Reverse 14 ng/dL (10-24)
== END 2020-03-22 02:57 ==
PROVIDERS: PCP Naturopath; Visit Provider Naturopath
DX: I10 Essential (primary) hypertension (principal); E11.65 Type 2 diabetes mellitus with hyperglycemia; E55.9 Vitamin D deficiency, unspecified; Z00.00 Encounter for general adult medical examination without abnormal findings; R00.2 Palpitations; R14.0 Abdominal distension (gaseous); I70.91 Generalized atherosclerosis; E01.8 Other iodine-deficiency related thyroid disorders and allied conditions; E66.9 Obesity, unspecified
CPT/HCPCS: 36415; 80053; 80061; 82306; 86376; 83036; 83525; 84144; 84436; 84439; 84443; 84481; 84482; 84681; 85025

== ENCOUNTER 2020-05-03 01:15 | Outpatient (CLI) | payer BC, SELFPAY ==
[2020-05-03 13:30] LABS: Iron 75 ug/dL (50-170); Total Iron Binding Capacity 270 ug/dL (250-450); Transferrin Sat 28 % (15-50)
[2020-05-03 13:43] LABS: Ferritin 177 ng/mL (8-252)
== END 2020-05-03 01:35 ==
PROVIDERS: PCP Naturopath; Visit Provider Naturopath
DX: D50.9 Iron deficiency anemia, unspecified (principal); R53.83 Other fatigue; E55.9 Vitamin D deficiency, unspecified; E11.65 Type 2 diabetes mellitus with hyperglycemia; E06.3 Autoimmune thyroiditis; N95.1 Menopausal and female climacteric states; E01.8 Other iodine-deficiency related thyroid disorders and allied conditions; E60 Dietary zinc deficiency; E66.9 Obesity, unspecified
CPT/HCPCS: 36415; 82728; 83540; 83550; 83735; 84630

== ENCOUNTER 2020-06-30 01:48 | Outpatient (CLI) | payer BC, SELFPAY ==
[2020-06-30 08:23] LABS: Hemoglobin A1C 5.4 % (<5.7)
[2020-06-30 08:41] LABS: FREE T4 0.97 ng/dL (0.76-1.46); TSH 1.57 uIU/mL (0.36-3.74)
[2020-06-30 20:03] LABS: T3,Free 3.2 pg/mL (2.8-5.3)
[2020-07-03 14:59] LABS: FSH 5.7 mIU/mL (See Note)
[2020-07-03 15:58] LABS: Thyroperoxidase Antibody 187 U/mL (<=60)
== END 2020-06-30 02:08 ==
PROVIDERS: PCP Naturopath; Visit Provider Nurse Practitioner Women's Health
DX: E06.3 Autoimmune thyroiditis (principal); E11.65 Type 2 diabetes mellitus with hyperglycemia; R53.83 Other fatigue; L65.9 Nonscarring hair loss, unspecified
CPT/HCPCS: 36415; 83001; 83036; 84439; 84443; 84481; 86376

== ENCOUNTER 2020-07-25 00:32 | Outpatient (CLI) | payer BC, SELFPAY ==
--- NOTE | 2020-07-25 16:30 | DI.MAMMO_ITS ---
EXAM: MG MAMMO SCREENING CLINICAL HISTORY: screening TECHNIQUE: Mammograms were interpreted according to the usual protocol including computer analysis w Surveying And Mapping (SAM) CAD system, tomosynthesis and C-view imaging. COMPARISON: FINDINGS: Breasts are of moderate density with fairly sent metric cul distribution of fibroglandular tissue. N o dominant mass or clumped microcalcification is identified in either breast. The current examinatio n is compared with previous examinations including April 2019 and there is question of increased promi nence of a focal area of asymmetric density projected in the lateral retroareolar portion of the left breast on CC view only. Additional mammographic views of the left breast are requested for further evaluation to include CC spot compression view of the left breast.. No other significant findings. IMPRESSION: Additional mammographic views of the left breast requested as described above. Breast ultrasound may be indicated as well depending on the results of the additional mammographic views. BI-RADS Category 0 - Assessment Incomplete: Need additional imaging evaluation Breast Density - Category B - Scattered areas of fibroglandular density
== END 2020-07-25 00:52 ==
PROVIDERS: PCP Naturopath; Visit Provider Nurse Practitioner Women's Health
DX: Z12.31 Encounter for screening mammogram for malignant neoplasm of breast (principal)
CPT/HCPCS: 77063; 77067

== ENCOUNTER 2020-07-27 00:28 | Outpatient (CLI) | payer BC, SELFPAY ==
--- NOTE | 2020-07-27 | DI.US_ITS ---
EXAM: MG MAMMO SCREEN CALL BACK UNI CLINICAL HISTORY: F/U MAMMO, ?INCREASED PROMIENCE ASYMMETRIC DENSITY LT BREAST TECHNIQUE: Mammograms were interpreted according to the usual protocol including computer analysis w ith CAD system, tomosynthesis and C-view imaging. COMPARISON: FINDINGS: Additional mammographic views of the left breast left breast ultrasound are interpreted in conjunctio n. These examinations were obtained to evaluate questionable area of asymmetric density in the upper outer quadrant of the left breast seen on recent mammogram. Additional mammographic views fail to s how a discrete mass. Breast ultrasound shows no evidence of a mass or cyst. IMPRESSION: No specific evidence of malignancy at this time. Follow-up unilateral left breast mammogram recomme nded in 6 months. BI-RADS Category 3 - 6 month - Probably Benign Finding: Recommend follow-up mammography in 6 months Breast Density - Category B - Scattered areas of fibroglandular density
== END 2020-07-27 00:48 ==
PROVIDERS: PCP Naturopath; Visit Provider Nurse Practitioner Women's Health
DX: Z12.39 Encounter for other screening for malignant neoplasm of breast (principal); R92.8 Other abnormal and inconclusive findings on diagnostic imaging of breast
CPT/HCPCS: 76642; 77063; 77067

== ENCOUNTER 2020-08-08 07:11 | Outpatient (CLI) | payer BC, SELFPAY ==
[2020-08-10 14:52] LABS: Patient Race White; SARS-CoV-2 RNA Undetected (Undetected); SARS-CoV-2 Specimen Source Nasal
== END 2020-08-08 07:31 ==
PROVIDERS: PCP Naturopath; Visit Provider Naturopath
DX: R51.9 Headache, unspecified (principal); J02.9 Acute pharyngitis, unspecified; J34.89 Other specified disorders of nose and nasal sinuses; M79.18 Myalgia, other site
CPT/HCPCS: U0003

== ENCOUNTER 2020-08-23 03:55 | Outpatient (CLI) | payer BC, SELFPAY ==
[2020-08-23 16:40] LABS: Abs Immature Grans 0.01 10^3/uL (0.0-0.06); Absolute Basophil Count 0.03 10^3/uL (0.0-0.2); Absolute Eosinophil Count 0.21 10^3/uL (0.0-0.7); Absolute Lymphocyte Count 3.71 10^3/uL (1.2-3.4); Absolute Monocyte Count 0.67 10^3/uL (0.1-0.8); Absolute Neutrophil Count 3.73 10^3/uL (1.2-6.7); Basophils % 0.4; Eosinophils % 2.5; HCT 39.3 % (36.0-46.0); HGB 12.9 g/dL (11.2-15.7); Immature Grans % 0.1; Lymphocytes % 44.4; MCH 29.3 pg (27.0-33.0); MCHC 32.8 % (32.0-36.0); MCV 89.3 fL (80-95); MPV 9.6 fL (8.0-11.0); Neutrophils % 44.6; Nucleated RBC 0 %; Platelet Count 261 10^3/uL (130-400); RDW 13.4 % (11.7-14.6); RDW-SD 44.3 fL; WBC 8.36 10^3/uL (4.4-10.8)
[2020-08-23 16:52] LABS: Bilirubin Negative (Negative); Blood Negative (Negative); Clarity Clear (Clear); Glucose Negative (Negative); Ketones Trace mg/dL (Negative); Leukocyte Esterase Negative (Negative); Nitrite Negative (Negative); Specific Gravity >= 1.030 (1.005-1.025); Urobilinogen 0.2 EU/dL (Up TO 0.2); pH 5.5 (5-8)
[2020-08-23 17:42] LABS: ALT 25 U/L (14-59); AST 14 U/L (15-37); Albumin 3.9 g/dL (3.4-5.0); Alkaline Phosphatase 89 U/L (46-116); Anion Gap 10.7 mmol/L (3-11); BUN 17 mg/dL (7-18); Bilirubin, Total 0.5 mg/dL (0.2-1.0); CO2 24.3 mmol/L (21.0-32.0); CREATININE 0.89 mg/dL (0.55-1.02); Calcium 8.7 mg/dL (8.5-10.1); Chloride 104 mmol/L (98-107); Glucose 86 mg/dL (74-106); Sodium 139 mmol/L (136-145); TSH 1.52 uIU/mL (0.36-3.74); Total Protein 7.2 g/dL (6.4-8.2)
[2020-08-23 17:43] LABS: Folate > 20.0 ng/mL (8.6-20.0)
[2020-08-23 17:59] LABS: FREE T4 0.89 ng/dL (0.76-1.46)
[2020-08-31 13:27] LABS: T3,Free 2.8 pg/mL (2.8-4.4)
== END 2020-08-23 04:15 ==
PROVIDERS: PCP Naturopath; Visit Provider Naturopath
DX: R50.9 Fever, unspecified (principal); R53.83 Other fatigue; D53.9 Nutritional anemia, unspecified; E06.3 Autoimmune thyroiditis; L65.9 Nonscarring hair loss, unspecified; N30.90 Cystitis, unspecified without hematuria
CPT/HCPCS: 36415; 80053; 81003; 82746; 84439; 84443; 84481; 85025

== ENCOUNTER 2020-11-06 02:46 | Outpatient (CLI) | payer BC, SELFPAY ==
[2020-11-06 10:16] LABS: Hemoglobin A1C 5.6 % (<5.7)
[2020-11-06 10:25] LABS: FREE T4 0.85 ng/dL (0.76-1.46); TSH 1.88 uIU/mL (0.36-3.74)
[2020-11-06 12:25] LABS: Glucose 1 Hour 175 mg/dL
[2020-11-06 14:12] LABS: Glucose 3 Hour 121 mg/dL
[2020-11-06 17:28] LABS: T3,Free 3.5 pg/mL (2.8-5.3)
[2020-11-06 18:09] LABS: Thyroperoxidase Antibody 135 U/mL (<=60)
[2020-11-07 16:44] LABS: C-Peptide 3.2 ng/mL (1.1 - 4.4)
[2020-11-08 00:35] LABS: B.burgdorferi PCR, B Negative (Negative); B.garinii/B.afzelii PCR,B Negative (Negative); B.mayonii PCR, B Negative (Negative); Babesia divergens/MO-1 Negative (Negative); Babesia duncani Negative (Negative); Babesia microti Negative (Negative)
[2020-11-08 09:40] LABS: Insulin 12.5 uIU/mL (<29.0)
[2020-11-08 09:42] LABS: Insulin 72.2 uIU/mL (<29.0)
[2020-11-08 09:48] LABS: Insulin 41.7 uIU/mL (<29.0)
[2020-11-08 09:56] LABS: Insulin 50.5 uIU/mL (<29.0)
[2020-11-08 13:26] LABS: Bartonella PCR Negative; Specimen Source BLOOD
[2020-11-09 08:36] LABS: 25-Hydroxy D Total 72 ng/mL; 25-Hydroxy D2 <4.0 ng/mL; 25-Hydroxy D3 72 ng/mL
== END 2020-11-06 03:06 ==
PROVIDERS: PCP Naturopath; Visit Provider Naturopath
DX: E11.65 Type 2 diabetes mellitus with hyperglycemia (principal); E55.9 Vitamin D deficiency, unspecified; R53.83 Other fatigue; M54.5 Low back pain; M25.561 Pain in right knee; M25.562 Pain in left knee; R00.2 Palpitations; R59.0 Localized enlarged lymph nodes
CPT/HCPCS: 36415; 82306; 82947; 87476; 87798; 87801; 82951; 83036; 83525; 84439; 84443; 84481; 84681; 86376

== ENCOUNTER 2021-01-01 11:48 | Outpatient (CLI) | payer BC, SELFPAY ==
--- NOTE | 2021-01-01 10:00 | DI.RAD_ITS ---
EXAM: XR KNEE LT 3V AP,LAT,CHINO CLINICAL HISTORY: L knee pain. TECHNIQUE: 2D digital imaging was performed. COMPARISON: No exams were available for comparison FINDINGS: There is no evidence of fracture nor joint effusion. There are significant osteoarthritic degenerati ve changes in the medial patellofemoral compartments; less so in the lateral compartment. Bone densi ty is age-appropriate. No osseous lesions. IMPRESSION: Degenerative changes. No obvious joint effusion. DATA REPOSITORY: RADIATION DOSE DELIVERED:
== END 2021-01-01 11:49 | disposition home or self-care (01) ==
LOC: DIORS 11:48
PROVIDERS: PCP Naturopath; Referring Provider Naturopath; Visit Provider Physician Assistant
DX: M25.562 Pain in left knee (principal)
CPT/HCPCS: 73562

== ENCOUNTER 2021-01-30 01:28 | Outpatient (CLI) | payer BC, SELFPAY ==
--- NOTE | 2021-01-30 09:25 | DI.MAMMO_ITS ---
EXAM: MG MAMMO DIAGNOSTIC UNI CLINICAL HISTORY: 6 month f/u L breast,r92.8. TECHNIQUE: Craniocaudal and mediolateral oblique Full Field Digital Mammography views of the left br east with Computer Aided Diagnosis followed by Tomosynthesis. COMPARISON: Priors for comparison FINDINGS: Mammography/Tomosynthesis: Masses/Architectural Distortion: None seen. Microcalcifictions: No suspicious pleomorphic-type are seen. Skin Thickening/Nipple Retraction: None. IMPRESSION: 1. No evidence of malignancy is noted. 2. Unless there is more urgent need, follow-up screening mammography is recommended, as per [place] [employer] guidelines. 3. The findings were discussed with the patient on the date of the examination. BI-RADS Category 1 - Negative Breast Density - Category B - Scattered areas of fibroglandular density Breast density Category C or D implies that the patient has dense breast tissue. Dense breast tissue can make it harder to find cancer on a mammogram. Dense breast tissue is also associated with an incr eased risk of breast cancer. This information about the result of the mammogram report was provided to the patient to raise their awareness. Use this report when you speak with the patient about their risks for breast cancer, which includes their family history. At that time, you may recommend additional screening tests (Ultrasoun d or MRI) as these tests may add significant information. A negative radiographic report should not delay biopsy if a dominant or clinically suspicious mass is present. Up to ten percent of cancers are not identified on mammography. A negative report may reinforce clinical impression. Adenosis and dense breasts may obscure an underlying neoplasm. False positive reports average 6 to 10%. Patient will receive a letter notifying them of these results.
== END 2021-01-30 01:48 ==
PROVIDERS: PCP Naturopath; Visit Provider Nurse Practitioner Women's Health
DX: Z12.31 Encounter for screening mammogram for malignant neoplasm of breast (principal); R92.8 Other abnormal and inconclusive findings on diagnostic imaging of breast; N64.59 Other signs and symptoms in breast
CPT/HCPCS: 77061; 77065; G0279

== ENCOUNTER 2021-02-02 08:34 | Outpatient (CLI) | payer BC, SELFPAY ==
[2021-02-03 15:03] LABS: COVID-19 RT-PCR UVMMC Result Negative (Negative)
== END 2021-02-02 08:35 | disposition home or self-care (01) ==
PROVIDERS: PCP Naturopath; Visit Provider Naturopath
DX: Z20.822 Contact with and (suspected) exposure to COVID-19 (principal)
CPT/HCPCS: U0003

== ENCOUNTER 2021-02-04 21:24 | Emergency (ER) | payer BC, SELFPAY ==
[2021-02-04] VITALS (16 sets, daily range): BP systolic 145–170; BP diastolic 76–87; PULSE 62–76; RESP 15–28; TEMP 36.6; O2SAT 93–98
--- NOTE | 2021-02-04 21:15 | RT.EKG_ITS ---
APPROVED REPORT Exam: Resting ECG Patient Location: E HR:69 bpm ECG Measurements Heart Rate 69 AXIS TX 177 P 39 QRSd 89 QRS -1 QT 406 T 11 QTc 434 Conclusion Sinus rhythm...normal P axis, V-rate 60- 99 Probable left atrial enlargement...P >50mS, <-0.10mV V1 Low voltage, precordial leads...precordial leads <1.0mV Probable left ventricular hypertrophy...multiple LVH criteria Physician: No stemi
--- NOTE | 2021-02-04 21:44 | NUR.NOTE ---
Nursing Note: Pt reports left sided CP breast and left scapular region ongoing 1.5 weeks . Reports dizziness past 3 hrs is what brought be in. Reports family hx of early IA . Pt reports currently left chest and into left neck discomfort rating 6/10. GCS 15.
--- NOTE | 2021-02-04 21:45 | DI.CT_ITS ---
EXAM: CT CHEST PE CTA CLINICAL HISTORY: left chest pain. TECHNIQUE: Imaging Protocol: CT angiography of the chest was performed using pulmonary embolus annamaria col. Multi planar reconstructions were performed. CONTRAST MATERIAL: Intravenous: Omnipaque 350 Contrast volume: 100 cc COMPARISON: CT CT BRAIN NECK CTA from 02/04/2021 FINDINGS: CHEST: PULMONARY ARTERIES: There are no intraluminal filling defects to suggest acute pulmonary emboli. LUNGS: There are no infiltrates nor evidence of pulmonary infarction.. There are no pleural effusions . MEDIASTINUM: There is no hilar nor mediastinal adenopathy. Visualized thyroid unremarkable. CARDIAC: Heart size is upper normal. There is no pericardial effusion.Caliber of the thoracic aorta is within normal limits. There is no significant shift of the interventricular septum. PARTIALLY VISUALIZED UPPERMOST ABDOMEN: No obvious findings OSSEOUS: No significant osseous lesions.. IMPRESSION: 1. No evidence of acute pulmonary emboli. No evidence of pulmonary infarction. No pulmonary infiltr ates nor ominous pulmonary nodules. No pleural effusions. 2. No intrathoracic adenopathy RADIATION DOSE DELIVERED: 560.38mGy.cm Total DLP DATA REPOSITORY: All CT scans at this facility are submitted to the National Radiology Data Registry (NRDR) Dose Index Registry (DIR) with the [employer] (ACR). RADIATION OPTIMIZATION: All CT scans at this facility use at least one of these dose optimization te chniques: automated exposure control; mA and/or kV adjustment per patient size (includes targeted exa ms where dose is matched to clinical indication); or iterative reconstruction.
--- NOTE | 2021-02-04 21:45 | DI.CT_ITS ---
EXAM: CT BRAIN NECK CTA CLINICAL HISTORY: left neck pain, chest pain, dizzy. TECHNIQUE: Imaging Protocol: Axial CT angiography was performed with multi-slice acquisition and mu lti-planar and/or 3D reconstructions. CONTRAST MATERIAL: Intravenous: Omnipaque 350 Contrast volume:structured data in ml COMPARISON: CT ABD PELVIS WO CONTRAST from 03/01/2017 FINDINGS: CTA Neck W: Aortic arch anatomy: The aortic arch anatomy is conventional. Anterior circulation: There is no significant stenosis at the origin of the great vessels off the aortic arch. Both common carotid arteries ascend with normal luminal diameters. There is no evidence of significa nt plaque at the carotid bifurcations nor in the proximal internal carotid arteries and these vessels are demonstrated to be nicely patent in the upper neck and skull base-carotid canals. Posterior circulation: Both vertebral arteries originated conventional fashion off of the subclavian arteries. There is no evidence of significant stenosis at the origin. Also no evidence of subclavian artery stenosis proxi mal to the vertebral artery takeoff points. Vertebral arteries ascend within the foramen transversar ium with approximately equal diameters. No evidence of intraluminal thrombosis nor dissection. Both vertebral arteries contribute to the formation of the basilar artery at the skull base. CTA Brain W: Anterior circulation: Both internal carotid arteries are patent in the skull base-carotid canals as well as within the cave rnous sinuses. Supraclinoid aspects are patent. Middle cerebral arteries are patent. Both A1 segme nts are patent as are the anterior cerebral arteries. There is no aneurysm at the level of the anter ior communicating artery nor elsewhere in the [id number]. Posterior circulation: Basilar artery is formed at the skull base by contribution from both vertebral arteries. The basilar artery ascends in the midline without significant dolichoectasia. Distally the basilar artery gives off patent bilateral superior cerebellar arteries. Above this level the basilar artery terminates a s patent left posterior cerebral artery. The right posterior cerebral artery is fed by posterior com municating artery on the right side of the [id number]. CT BRAIN: No evidence of intracranial hemorrhage, mass effect, or shift of midline structures. No extra-axial fluid collections. Ventricles are not enlarged or shifted. There is no blood within the ventricular system nor within the basal cisterns. There are no ring enhancing lesions in the brain. No abnorma l meningeal enhancement evident. IMPRESSION: 1. Patent carotid and vertebral arteries in the neck. 2. Patent intracranial arteries. 3. No obvious aneurysms. RADIATION DOSE DELIVERED: 1,995.61mGy.cm Total DLP DATA REPOSITORY: All CT scans at this facility are submitted to the National Radiology Data Registry (NRDR) Dose Index Registry (DIR) with the [employer] (ACR). RADIATION OPTIMIZATION: All CT scans at this facility use at least one of these dose optimization te chniques: automated exposure control; mA and/or kV adjustment per patient size (includes targeted exa ms where dose is matched to clinical indication); or iterative reconstruction.
[2021-02-04] MEDS: Meclizine 25 MG TAB PO (22:07)
[2021-02-04 22:08] LABS: Abs Immature Grans 0.03 10^3/uL (0.0-0.06); Absolute Basophil Count 0.06 10^3/uL (0.0-0.2); Absolute Eosinophil Count 0.24 10^3/uL (0.0-0.7); Absolute Lymphocyte Count 3.47 10^3/uL (1.2-3.4); Absolute Monocyte Count 0.71 10^3/uL (0.1-0.8); Absolute Neutrophil Count 5.97 10^3/uL (1.2-6.7); Basophils % 0.6; Eosinophils % 2.3; HCT 39.3 % (36.0-46.0); Immature Grans % 0.3; Lymphocytes % 33.1; MCH 29.7 pg (27.0-33.0); MCHC 33.1 % (32.0-36.0); MCV 89.7 fL (80-95); MPV 9.1 fL (8.0-11.0); Monocytes % 6.8; Neutrophils % 56.9; Nucleated RBC 0 %; Platelet Count 281 10^3/uL (130-400); RBC 4.38 10^6/uL (3.93-5.22); RDW 12.7 % (11.7-14.6); RDW-SD 41.4 fL; WBC 10.48 10^3/uL (4.4-10.8)
[2021-02-04] MEDS: Normal Saline 500 ML IV (22:08)
[2021-02-04] MEDS: ACETAMINOPHEN 1,000 MG/100 ML BTL 400 MG IVPB (22:12)
[2021-02-04 22:23] LABS: PTT Activated 25.7 sec (21.0-27.5); Prothrombin Time 9.7 sec (9.3-11.0)
[2021-02-04 22:24] LABS: ALT 28 U/L (14-59); AST 16 U/L (15-37); Albumin 3.7 g/dL (3.4-5.0); Alkaline Phosphatase 100 U/L (46-116); Anion Gap 7.9 mmol/L (3-11); BUN 15 mg/dL (7-18); Bilirubin, Total 0.4 mg/dL (0.2-1.0); CO2 29.1 mmol/L (21.0-32.0); CREATININE 0.8 mg/dL (0.55-1.02); Calcium 9.2 mg/dL (8.5-10.1); Chloride 106 mmol/L (98-107); Glucose 100 mg/dL (74-106); Potassium 3.6 mmol/L (3.5-5.1); Sodium 143 mmol/L (136-145); Total Protein 7.4 g/dL (6.4-8.2); Troponin I < 0.05 ng/mL (<0.06)
[2021-02-04] MEDS: Normal Saline - Diluent 50 ML VIAL IV (22:50)
[2021-02-04] MEDS: Omnipaque 350 MG/ML 100 ML BTL IJ (22:51)
--- NOTE | 2021-02-04 23:33 | DI.VRAD_ITS ---
PROCEDURE INFORMATION: Exam: CT Angiography Head With Contrast Exam date and time: 02/04/2021 9:50 PM Age: 51 years old Clinical indication: Other: L chest pain, neck pain TECHNIQUE: Imaging protocol: Computed tomography angiography of the head with intravenous contrast. 3D rendering (Not supervised by radiologist): MIP and/or 3D reconstructed images were created by the technologist. COMPARISON: CT HEAD WO 01/27/2019 2:22 PM FINDINGS: ANTERIOR CIRCULATION: Right internal carotid artery: Unremarkable. Intracranial segment is patent with no significant stenosis. No aneurysm. Right middle cerebral artery: Unremarkable. No occlusion or significant stenosis. No aneurysm. Right anterior cerebral artery: Unremarkable. No occlusion or significant stenosis. No aneurysm. Left internal carotid artery: Unremarkable. Intracranial segment is patent with no significant stenosis. No aneurysm. Left middle cerebral artery: Unremarkable. No occlusion or significant stenosis. No aneurysm. Left anterior cerebral artery: Unremarkable. No occlusion or significant stenosis. No aneurysm. POSTERIOR CIRCULATION: Right vertebral artery: Unremarkable. No occlusion or significant stenosis. No aneurysm. Left vertebral artery: Unremarkable. No occlusion or significant stenosis. No aneurysm. Basilar artery: Unremarkable. No occlusion or significant stenosis. No aneurysm. Right posterior cerebral artery: Unremarkable. No occlusion or significant stenosis. No aneurysm. Left posterior cerebral artery: Unremarkable. No occlusion or significant stenosis. No aneurysm. Veins: Visualized venous sinuses are patent with no evidence of thrombosis. The superior sagittal and inferior sagittal sinuses are unremarkable. Transverse sinuses and sagittal sinuses are unremarkable. Brain: No acute intracranial hemorrhage. Hector/white matter differentiation is unremarkable. Cisterns are unremarkable. Brainstem is unremarkable. No suprasellar mass. Cerebral ventricles: No ventriculomegaly. Bones/joints: Unremarkable. No acute fracture. Soft tissues: No mass lesion. No mass effect. Thalamus and hypothalamus are unremarkable. Cerebellum is unremarkable. IMPRESSION: No evidence of vascular pathology. PROCEDURE INFORMATION: Exam: CT Angiography Neck With Contrast Exam date and time: 02/04/2021 9:50 PM Age: 51 years old Clinical indication: Other: L chest pain, neck pain TECHNIQUE: Imaging protocol: Computed tomography angiography of the neck with contrast. 3D rendering (Not supervised by radiologist): MIP and/or 3D reconstructed images were created by the technologist. COMPARISON: CT HEAD WO 01/27/2019 2:22 PM FINDINGS: Right common carotid artery: No stenosis. No dissection or occlusion. Right internal carotid artery: No stenosis of the extracranial segment. No dissection or occlusion. Right external carotid artery: No occlusion or stenosis of the origin. Right vertebral artery: No stenosis. No dissection or occlusion. Left common carotid artery: No stenosis. No dissection or occlusion. Left internal carotid artery: No stenosis of the extracranial segment. No dissection or occlusion. Left external carotid artery: No occlusion or stenosis of the origin. Left vertebral artery: No stenosis. No dissection or occlusion. Bones/joints: No acute fracture. Soft tissues: Normal. No significant soft tissue swelling. IMPRESSION: No evidence of vascular stenosis by NASCET criteria. REFERENCES: NASCET CRITERIA. The degree of internal carotid artery stenosis is based on NASCET criteria. Normal is no stenosis. Mild is less than 50% stenosis. Moderate is 50-69% stenosis. Severe is 70% to 99% stenosis. Total occlusion is no detectable patent lumen. Dictated and Authenticated by: Clive Rogers MD. Ordering:VIRGINIA Patel MD
--- NOTE | 2021-02-04 23:37 | DI.VRAD_ITS ---
PROCEDURE INFORMATION: Exam: CTA Chest With Contrast Exam date and time: 02/04/2021 9:50 PM Age: 51 years old Clinical indication: Left-sided chest pain TECHNIQUE: Imaging protocol: Computed tomographic angiography of the chest with contrast. 3D rendering (Not supervised by radiologist): MIP and/or 3D reconstructed images were created by the technologist. COMPARISON: CR XR CHEST 2V PA LATERAL 01/27/2019 2:29 PM FINDINGS: Pulmonary arteries: Normal. No pulmonary emboli. Aorta: Unremarkable. No aortic aneurysm. No aortic dissection. Lungs: Unremarkable. No consolidation. No masses. Pleural spaces: Unremarkable. No pneumothorax. No pleural effusion. Heart: Unremarkable. No cardiomegaly. No pericardial effusion. Lymph nodes: Unremarkable. No enlarged lymph nodes. Bones/joints: Unremarkable. No acute fracture. Soft tissues: Unremarkable. IMPRESSION: No acute findings. Dictated and Authenticated by: Hosea Stoelo MD. Ordering:VIRGINIA Patel MD
[2021-02-05] VITALS (14 sets, daily range): BP systolic 125–144; BP diastolic 63–85; PULSE 55–70; RESP 13–28; O2SAT 95–98
[2021-02-05 01:12] LABS: Troponin I < 0.05 ng/mL (<0.06)
--- NOTE | 2021-02-05 01:34 | W.ED.GENAD ---
Discharge Plan Disposition Patient Disposition: HOME Condition: Good Discharge Details Clinical Impression: Dizziness, Arm pain, left Primary Care Provider: Devi Reyes ED Provider: Jorge Redmond Home Meds and New Rx's Prescriptions: New meclizine 25 mg tablet 25 mg PO BID Qty: 10 RF: 0 Continued amlodipine 5 mg tablet 5 mg PO DAILY RF: 0 losartan 50 mg tablet 50 mg PO DAILY RF: 0 lorazepam [Ativan] 0.5 MG tablet 0.5 mg PO DAILY PRN PRN (Reason: Anxiety) RF: 0 vitamin K2 40 mcg Tablet 40 mcg PO DAILY RF: 0 magnesium citrate Solution 5 - 10 ml PO HS RF: 0 magnesium glycinate 100 mg Tablet 200 mg PO BID RF: 0 cholecalciferol (vitamin D3) 10,000 unit Tablet 10,000 unit PO DAILY RF: 0 aspirin 81 mg Tablet,Delayed Release (Dr/Ec) 81 mg PO DAILY Qty: 30 RF: 0 Discharge Instructions Instructions: Chest Pain (ED), Dizziness (ED) Additional Instructions: At this time your cardiac work-up has returned normal. Your imaging shows no other concerning abnormality. Please make sure you are drinking plenty of fluids throughout the day and take the meclizine as needed for dizziness. The prescription has been sent to your [facility]. It is still important to follow-up closely with your family doctor and the snowsport instructor. If you notice any worsening of your symptoms, or any new symptoms such as vomiting, diarrhea, fever, chills, shortness of breath, chest pain, numbness, weakness, or fainting , please return immediately to the emergency department for reevaluation. Please follow up with your primary care provider as soon as possible for reassessment and reevaluation. As always, it was a pleasure participating in your medical care today. Referrals: Devi Reyes [Primary Care Provider] - Medical Decision Making 51-year-old female with past medical history of GERD, diabetes, Saul's, hypertension, obstructive sleep apnea, presents today for evaluation of left-sided chest abdomen pain for the last week. She describes the pain achy. Radiates to her left arm. However this evening the patient developed radiation of the pain to her neck and left scapula. It is nonexertional. It is nonpleuritic. She also had associated dizziness this evening, worse when she moves her head. She denies any significant cough. She denies any fever or chills. She denies any headache or tearing or ripping sensation in her chest. No previous cardiac disease for herself. However she does have a strong family history of cardiac ischemia and ACS. She denies any current tobacco use. No cocaine use. No other complaints at this time. She denies any other focal aggravators to her symptoms. Exam demonstrates no carotid bruits, no focal neurologic deficits. No significant nystagmus however head impulse test does worsen the patient's symptoms when it is moved to the left. With the patient symptoms for the last week I feel that ACS is unlikely, however we will do screening evaluation. The atypical symptoms of the dizziness would be neck tingling sensation in conjunction with your chest and arm pain certainly does elicit concern for potential vascular/aortic pathology. We will get CTA of the chest head and neck for further assessment, rehydrate, give Tylenol, monitor closely and reassess. 1 AM Patient's laboratory work-up has returned unremarkable, no significant white count bandemia or left shift, electrolytes normal, troponin initial and delta troponin are both normal. EKG is unremarkable. CTA of the head neck and chest shows no evidence of vascular pathology. Patient dizziness is completely resolved with meclizine. At this time patient is notably hemodynamically stable, repeat neurologic exam is unremarkable. Signs and symptoms are not consistent at this time clinically with ACS, dissection, PE, stroke, cerebellar stroke. I suspect she has mild peripheral vertigo mild dehydration causing her symptoms. However with her chest and arm pain, I do feel that further outpatient work-up is indicated with stress testing. Will recommend that she follow-up closely with PCP for this. Patient admits that she was actually supposed to follow-up with cardiology coming morning, this will be ideal. Discussed red flags which to return. I have extensively reviewed the treatment plan and discharge instructions with the patient. I have addressed all patient concerns at this time. The patient was made aware of what symptoms to monitor for that would warrant a return to the emergency department. Discussed the plan with the patient, they demonstrate verbal understanding and agreement with our assessment and plan at this time. The documentation in this chart was dictated using [employer] dictation software. Please excuse any dictation errors. FINDINGS: Pulmonary arteries: Normal. No pulmonary emboli. Aorta: Unremarkable. No aortic aneurysm. No aortic dissection. Lungs: Unremarkable. No consolidation. No masses. Pleural spaces: Unremarkable. No pneumothorax. No pleural effusion. Heart: Unremarkable. No cardiomegaly. No pericardial effusion. Lymph nodes: Unremarkable. No enlarged lymph nodes. Bones/joints: Unremarkable. No acute fracture. Soft tissues: Unremarkable. IMPRESSION: No acute findings. Thank you for allowing us to participate in the care of your patient. FINDINGS: ANTERIOR CIRCULATION: Right internal carotid artery: Unremarkable. Intracranial segment is patent with no significant stenosis. No aneurysm. Right middle cerebral artery: Unremarkable. No occlusion or significant stenosis. No aneurysm. Right anterior cerebral artery: Unremarkable. No occlusion or significant stenosis. No aneurysm. Left internal carotid artery: Unremarkable. Intracranial segment is patent with no significant stenosis. No aneurysm. Left middle cerebral artery: Unremarkable. No occlusion or significant stenosis. No aneurysm. Left anterior cerebral artery: Unremarkable. No occlusion or significant stenosis. No aneurysm. POSTERIOR CIRCULATION: Right vertebral artery: Unremarkable. No occlusion or significant stenosis. No aneurysm. Left vertebral artery: Unremarkable. No occlusion or significant stenosis. No aneurysm. Basilar artery: Unremarkable. No occlusion or significant stenosis. No aneurysm. Right posterior cerebral artery: Unremarkable. No occlusion or significant stenosis. No aneurysm. Left posterior cerebral artery: Unremarkable. No occlusion or significant stenosis. No aneurysm. Veins: Visualized venous sinuses are patent with no evidence of thrombosis. The superior sagittal and inferior sagittal sinuses are unremarkable. Transverse sinuses and sagittal sinuses are unremarkable. Brain: No acute intracranial hemorrhage. Hector/white matter differentiation is unremarkable. Cisterns are unremarkable. Brainstem is unremarkable. No suprasellar mass. Cerebral ventricles: No ventriculomegaly. Bones/joints: Unremarkable. No acute fracture. Soft tissues: No mass lesion. No mass effect. Thalamus and hypothalamus are unremarkable. Cerebellum is unremarkable. IMPRESSION: No evidence of vascular pathology FINDINGS: Right common carotid artery: No stenosis. No dissection or occlusion. Right internal carotid artery: No stenosis of the extracranial segment. No dissection or occlusion. Right external carotid artery: No occlusion or stenosis of the origin. Right vertebral artery: No stenosis. No dissection or occlusion. Left common carotid artery: No stenosis. No dissection or occlusion. Left internal carotid artery: No stenosis of the extracranial segment. No dissection or occlusion. Left external carotid artery: No occlusion or stenosis of the origin. Left vertebral artery: No stenosis. No dissection or occlusion. Bones/joints: No acute fracture. Soft tissues: Normal. No significant soft tissue swelling. IMPRESSION: No evidence of vascular stenosis by NASCET criteria. REFERENCES: NASCET CRITERIA. The degree of internal carotid artery stenosis is based on NASCET criteria. Normal is no stenosis. Mild is less than 50% stenosis. Moderate is 50-69% stenosis. Severe is 70% to 99% stenosis. Total occlusion is no detectable patent lumen. Thank you for allowing us to participate in the care of your patient. Dictated and Authenticated by: Clive Rogers MD 02/04/2021 11:33 PM Eastern Time ([place] & [place]) HPI General Date/Time Provider Initiated Documentation: 02/04/21 21:31. HPI Narrative: 51-year-old female with past medical history of GERD, diabetes, Saul's, hypertension, obstructive sleep apnea, presents today for evaluation of left-sided chest abdomen pain for the last week. She describes the pain achy. Radiates to her left arm. However this evening the patient developed radiation of the pain to her neck and left scapula. It is nonexertional. It is nonpleuritic. She also had associated dizziness this evening, worse when she moves her head. She denies any significant cough. She denies any fever or chills. She denies any headache or tearing or ripping sensation in her chest. No previous cardiac disease for herself. However she does have a strong family history of cardiac ischemia and ACS. She denies any current tobacco use. No cocaine use. No other complaints at this time. She denies any other focal aggravators to her symptoms. Related Data Home Medications Medication Instructions Recorded Confirmed lorazepam [Ativan] 0.5 mg PO DAILY PRN PRN 05/17/15 04/21/19 amlodipine 5 mg tablet 5 mg PO DAILY 01/27/19 04/21/19 cholecalciferol (vitamin D3) 10,000 unit PO DAILY 01/27/19 04/21/19 magnesium citrate 5 - 10 ml PO HS 01/27/19 04/21/19 magnesium glycinate 200 mg PO BID 01/27/19 04/21/19 vitamin K2 40 mcg PO DAILY 01/27/19 04/21/19 aspirin 81 mg PO DAILY #30 tab 01/28/19 04/21/19 losartan 50 mg tablet 50 mg PO DAILY tab 01/01/21 meclizine 25 mg PO BID #10 tab 02/05/21 Previous Rx's Medication Instructions Recorded aspirin 81 mg PO DAILY #30 tab 01/28/19 meclizine 25 mg PO BID #10 tab 02/05/21 Allergies Allergy/AdvReac Type Severity Reaction Status Date / Time Iodinated Contrast Media Allergy Severe Racing Unverified 02/04/21 22:28 [Iodinated Contrast Media - Heart,SOB,Facial IV Dye] flushing sulfamethoxazole Allergy Severe Anaphylaxsi Unverified 02/04/21 22:28 [From Bactrim] s spironolactone Allergy Intermediate Skin Rash Unverified 02/04/21 22:28 ciprofloxacin [From Cipro] Allergy Mild Unverified 02/04/21 22:28 amiloride Allergy Unknown Unverified 02/04/21 22:28 buspirone Allergy Unknown Unverified 02/04/21 22:28 lisinopril Allergy Unknown Unverified 02/04/21 22:28 General Stated Complaint: Chest Pain RADHA: 2 Review of Systems All systems reviewed & are unremarkable except as noted in HPI and below PFSH Medical History Abnormal mammogram of left breast Anxiety Basal cell carcinoma nose, removed at [facility] derm December 2019 Diabetes GERD (gastroesophageal reflux disease) Saul's disease Hypertension KARMEN (obstructive sleep apnea) Paroxysmal A-fib Surgical History Cholecystectomy H/O right wrist surgery S/P hysterectomy Family History Mother Heart disease PA at 47 Diabetes Hypertension Breast cancer Maternal Grandmother Heart disease PA @47 Diabetes Hypertension Breast cancer Maternal Aunt Heart disease sudden at 54 Maternal Grandfather Stroke Brother Stroke Social History Smoking/Tobacco Use Status: Former Tobacco Use Smoking risk assessment performed?: Yes Alcohol Intake: never Drug use: Never Substance use type: does not use Do you feel safe at home: Yes Do you feel safe in your relationship?: Yes Female Reproductive History Menstrual Menopause type: surgical (2017 s/p hyst) History History 3 Para 2 Hx # Term Pregnancies Multiple births Hx # Pregnancies Ectopic pregnancies AB induced Hx Number of Living Children AB spontaneous Exam Narrative Exam Narrative: 1.Const: Well-nourished, Well-developed, appearing stated age 2.Eyes: PERRL, no conjunctival injection, and symmetrical lids. 3.ENT: Atraumatic external nose and ears. Moist MM. Neck: Symmetric, trachea midline, No thyromegaly. 4.CVS: +S1/S2, No murmurs or gallops. Peripheral pulses 2+ and equal in all extremities. Brisk capillary refill in all extremities. No carotid bruits 5.RESP: Unlabored respiratory effort. Clear to auscultation bilaterally. No wheezes rales or rhonchi 6.GI: Soft, Nontender/Nondistended, No hepatosplenomegaly. No guarding or rebound. 7.MSK: Normocephalic/Atraumatic, Extremities w/o deformity or ttp No cyanosis or clubbing, Normal movement of all extremities 8.Skin: Warm, Dry. No rashes or lesions. 9.Neuro: post partum nurse II-XII grossly intact. Sensation grossly intact, no focal neurologic deficits. All 6 cardinal planes of vision are fully intact. No evidence of rotatory or vertical nystagmus. The patient demonstrated a normal gaolbc-lahd-derjqm, good dexterity. There was no evidence of dysdiadochokinesia. Patient was able to ambulate without difficulty. There was no wide-based gait. Romberg testing was normal. Kvmt-uo-rjco testing was normal. Sensation was intact bilaterally as well as muscle strength bilaterally for all extremities. Patient was able to verbalize butter cup with no slurring, or miss pronunciation. Cerebellar function testing is normal. The patient demonstrates a normal hints exam with no findings concerning for a central event. No vertical nystagmus. The head impulse test is negative for any significant central abnormality but I did worsen her symptoms when her head was moved to the left. Normal test of skew. No suggestion of a central cerebellar event. 10.Psych: (AAO) x3. Appropriate mood and affect Course Vital Signs Vital signs: Vital Signs Temperature 36.6 C 02/04/21 21:38 Pulse 71 02/04/21 21:38 Respiratory Rate 15 02/04/21 21:38 Pulse Oximetry 97 02/04/21 21:38 Temperature 36.6 C 02/04/21 21:38 Pulse 55 L 02/05/21 01:30 Pulse 65 02/05/21 01:31 Respiratory Rate 18 02/05/21 01:31 Respiratory Effort 02/04/21 21:43 Respiratory Depth Normal 02/04/21 21:43 Respiratory Pattern Normal 02/04/21 21:43 Blood Pressure 144/85 H 02/05/21 01:30 Blood Pressure Mean 101 02/05/21 01:30 Blood Pressure Position Sitting 02/04/21 21:38 Pulse Oximetry 96 02/05/21 01:31 Oxygen Delivery Method Room Air 02/04/21 21:38 Oxygen Flow Rate 0 02/04/21 21:38 Pain Level 6 02/04/21 21:38 Comment 02/04/21 21:38 Lab/Test Results Lab/Test Results: Laboratory Tests Range/Units 02/04/21 02/04/21 02/04/21 22:02 22:02 22:02 WBC (4.4-10.8) 10^3/uL 10.48 RBC (3.93-5.22) 10^6/uL 4.38 Hgb (11.2-15.7) g/dL 13.0 Hct (36.0-46.0) % 39.3 MCV (80-95) fL 89.7 MCH (27.0-33.0) pg 29.7 MCHC (32.0-36.0) % 33.1 RDW (11.7-14.6) % 12.7 Plt Count (130-400) 10^3/uL 281 MPV (8.0-11.0) fL 9.1 Immature Gran % 0.3 Neutrophils % 56.9 Lymphocytes % 33.1 Monocytes % 6.8 Eosinophils % 2.3 Basophils % 0.6 Nucleated RBC % % 0 Absolute Neutrophils (1.2-6.7) 10^3/uL 5.97 Absolute Lymphocytes (1.2-3.4) 10^3/uL 3.47 H Absolute Monocytes (0.1-0.8) 10^3/uL 0.71 Absolute Eosinophils (0.0-0.7) 10^3/uL 0.24 Absolute Basophils (0.0-0.2) 10^3/uL 0.06 PT (9.3-11.0) sec 9.7 INR (0.9-1.1) 1.0 APTT (21.0-27.5) sec 25.7 Sodium (136-145) mmol/L 143 Potassium (3.5-5.1) mmol/L 3.6 Chloride (98-107) mmol/L 106 Carbon Dioxide (21.0-32.0) mmol/L 29.1 Anion Gap (3-11) mmol/L 7.9 BUN (7-18) mg/dL 15 Creatinine (0.55-1.02) mg/dL 0.8 Estimated GFR/1.73 m2 (mL/min/1.73m2) >= 60.00 Glucose (74-106) mg/dL 100 Calcium (8.5-10.1) mg/dL 9.2 Total Bilirubin (0.2-1.0) mg/dL 0.4 AST (15-37) U/L 16 ALT (14-59) U/L 28 Alkaline Phosphatase (46-116) U/L 100 Troponin I (<0.06) ng/mL < 0.05 Total Protein (6.4-8.2) g/dL 7.4 Albumin (3.4-5.0) g/dL 3.7 Range/Units 02/05/21 00:45 WBC (4.4-10.8) 10^3/uL RBC (3.93-5.22) 10^6/uL Hgb (11.2-15.7) g/dL Hct (36.0-46.0) % MCV (80-95) fL MCH (27.0-33.0) pg MCHC (32.0-36.0) % RDW (11.7-14.6) % Plt Count (130-400) 10^3/uL MPV (8.0-11.0) fL Immature Gran % Neutrophils % Lymphocytes % Monocytes % Eosinophils % Basophils % Nucleated RBC % % Absolute Neutrophils (1.2-6.7) 10^3/uL Absolute Lymphocytes (1.2-3.4) 10^3/uL Absolute Monocytes (0.1-0.8) 10^3/uL Absolute Eosinophils (0.0-0.7) 10^3/uL Absolute Basophils (0.0-0.2) 10^3/uL PT (9.3-11.0) sec INR (0.9-1.1) APTT (21.0-27.5) sec Sodium (136-145) mmol/L Potassium (3.5-5.1) mmol/L Chloride (98-107) mmol/L Carbon Dioxide (21.0-32.0) mmol/L Anion Gap (3-11) mmol/L BUN (7-18) mg/dL Creatinine (0.55-1.02) mg/dL Estimated GFR/1.73 m2 (mL/min/1.73m2) Glucose (74-106) mg/dL Calcium (8.5-10.1) mg/dL Total Bilirubin (0.2-1.0) mg/dL AST (15-37) U/L ALT (14-59) U/L Alkaline Phosphatase (46-116) U/L Troponin I (<0.06) ng/mL < 0.05 Total Protein (6.4-8.2) g/dL Albumin (3.4-5.0) g/dL
== END 2021-02-05 01:45 | disposition home or self-care (01) ==
PROVIDERS: Emergency Provider Student in an Organized Health Care Education/Training Program; PCP Naturopath
DX: R42 Dizziness and giddiness (principal); M79.602 Pain in left arm; R07.81 Pleurodynia
CPT/HCPCS: 36415; 70496; 70498; 71275; 80053; 93005; 96361; 96374; 99285; 84484; 85025; 85610; 85730; 93010; J0131; J3490

== ENCOUNTER 2021-03-16 18:42 | Outpatient (REF) | payer BC, SELFPAY | END 2021-03-16 18:43 | disposition home or self-care (01) | LOC: NCHCN 18:42 | PROVIDERS: PCP Naturopath; Visit Provider Physician Assistant Medical | DX: R30.0 Dysuria (principal) | CPT/HCPCS: 87086 ==

== ENCOUNTER 2021-04-18 02:54 | Outpatient (CLI) | payer BC, SELFPAY | END 2021-04-18 02:55 | disposition home or self-care (01) | LOC: LOS 02:54 | PROVIDERS: PCP Naturopath; Visit Provider Student in an Organized Health Care Education/Training Program | DX: E24.9 Cushing's syndrome, unspecified (principal) | CPT/HCPCS: 36415; 82533 ==

== ENCOUNTER 2021-04-19 17:36 | Outpatient (REF) | payer BC, SELFPAY ==
[2021-04-24 15:47] LABS: Misc Referral (MAYO) See Comments
== END 2021-04-19 17:37 | disposition home or self-care (01) ==
LOC: LBN 17:36
PROVIDERS: PCP Naturopath; Visit Provider Naturopath
DX: N30.00 Acute cystitis without hematuria (principal); R10.2 Pelvic and perineal pain
CPT/HCPCS: 87563

== ENCOUNTER 2021-04-20 16:33 | Emergency (ER) | payer BC, SELFPAY ==
[2021-04-20 16:52] VITALS: BP 184/94; PULSE 66; RESP 17; TEMP 36.2; O2SAT 99
--- NOTE | 2021-04-20 17:05 | W.ED.GENAD ---
Discharge Plan Disposition Patient Disposition: HOME Condition: Stable Discharge Details Clinical Impression: Kidney stone on left side, Adnexal mass Primary Care Provider: Devi Reyes ED Provider: Ashley Padilla Home Meds and New Rx's Prescriptions: Continued losartan 50 mg tablet 75 mg PO DAILY RF: 0 vitamin K2 40 mcg Tablet 40 mcg PO DAILY RF: 0 magnesium citrate Solution 5 - 10 ml PO HS RF: 0 magnesium glycinate 100 mg Tablet 200 mg PO BID RF: 0 cholecalciferol (vitamin D3) 10,000 unit Tablet 10,000 unit PO DAILY RF: 0 aspirin 81 mg Tablet,Delayed Release (Dr/Ec) 81 mg PO DAILY Qty: 30 RF: 0 potassium 99 mg Tablet 198 mg PO DAILY RF: 0 Discharge Instructions Instructions: Kidney Stones (ED) Additional Instructions: Strain all urine. Follow-up with urology in 3 to 5 days. Have outpatient ultrasound done when they call you. It may be at the beginning of next week. You may follow-up in the ER to obtain results. Follow up with primary care provider in 3-5 days. Return to ED sooner if any worsening pain, inability to urinate, fever, vomiting or concerns. Increase oral fluids. Please take Tylenol or Ibuprofen with food every 4-6 hours as needed for pain and swelling. Referrals: Devi Reyes [Primary Care Provider] - Allison Rubi DNP [NURSE PRACTITIONER] - 5 days Medical Decision Making 51-year-old female presents to the ER chief complaint of dysuria, suprapubic abdominal sharp stabbing pain with radiation into her generalized abdominal area into her back. She reports on Friday she began with dysuria suprapubic pain yesterday pain spread up into her abdomen into her back. She describes the suprapubic pain as razor blade, dull achy generalized abdominal pain. Associated with nausea no vomiting no diarrhea no fever chills. Denies any chest pain or shortness of breath. She does have a past medical history of paroxysmal A. 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 Surgical history includes cholecystectomy, partial hysterectomy. She reports that she does have a history also of UTI treated for pyelonephritis and urosepsis in the past. Initially she is reported to have an IV contrast dye allergy, however she has had CTs with IV contrast dye with no reaction as recently as January. At this time work-up ordered including CBC, CMP, lipase, urinalysis IV normal saline and Zofran. We will consider CT abdomen pelvis due to patient's toleration IV contrast dye recently. CT abdomen pelvis without contrast ordered. Differential diagnosis includes but not limited to UTI, pyelonephritis, diverticulitis, gastroenteritis, less likely AAA CBC is negative for leukocytosis, CMP is largely within normal limits. Urinalysis shows no evidence for UTI only shows trace intact lipase within normal limits. V rad CT abdomen pelvis without IMPRESSION: 1. Punctate left ureterovesical junction calculus. No hydronephrosis or hydroureter. 2. Left adnexal fluid attenuating mass 9.4 cm. Nonemergent ultrasound of the pelvis is recommended for characterization. Outpatient ultrasound transvaginal pelvis ordered to further characterize the left adnexal fluid-filled mass. Patient given a strainer placed on care management list for urology follow-up. Offered pain medications patient has declined that at this time. Discussed home care and follow-up, verbalized understanding. Patient discharged home hemodynamically stable. Patient was hypertensive throughout stay patient states that this is at baseline for her. This text was generated using [employer] dictation system, please disregard any oddities of phrase or misspellings. HPI General Mode of arrival: ambulatory. Date/Time Provider Initiated Documentation: 04/20/21 16:37. Limitations to Documentation: no limitations. Information obtained by: patient, RN notes reviewed and old records reviewed. HPI Narrative: 51-year-old female presents to the ER chief complaint of dysuria, suprapubic abdominal sharp stabbing pain with radiation into her generalized abdominal area into her back. She reports on Friday she began with dysuria suprapubic pain yesterday pain spread up into her abdomen into her back. She describes the suprapubic pain as razor blade, dull achy generalized abdominal pain. Associated with nausea no vomiting no diarrhea no fever chills. Denies any chest pain or shortness of breath. She does have a past medical history of paroxysmal A. fib, obstructive sleep apnea, hypertension, Saul's disease and is currently being worked up for Perry's, GERD, diabetes, anxiety. She reports that she does have a history also of UTI treated for pyelonephritis and urosepsis in the past. Initially she is reported to have an IV contrast dye allergy, however she has had CTs with IV contrast dye with no reaction as recently as January. Related Data Home Medications Medication Instructions Recorded Confirmed cholecalciferol (vitamin D3) 10,000 unit PO DAILY 01/27/19 04/20/21 magnesium citrate 5 - 10 ml PO HS 01/27/19 04/20/21 magnesium glycinate 200 mg PO BID 01/27/19 04/20/21 vitamin K2 40 mcg PO DAILY 01/27/19 04/20/21 aspirin 81 mg PO DAILY #30 tab 01/28/19 04/20/21 losartan 50 mg tablet 75 mg PO DAILY tab 01/01/21 04/20/21 potassium 198 mg PO DAILY 04/20/21 04/20/21 Previous Rx's Medication Instructions Recorded aspirin 81 mg PO DAILY #30 tab 01/28/19 Allergies Allergy/AdvReac Type Severity Reaction Status Date / Time Iodinated Contrast Media Allergy Severe Racing Unverified 02/04/21 22:28 [Iodinated Contrast Media - Heart,SOB,Facial IV Dye] flushing sulfamethoxazole Allergy Severe Anaphylaxsi Unverified 02/04/21 22:28 [From Bactrim] s spironolactone Allergy Intermediate Skin Rash Unverified 02/04/21 22:28 ciprofloxacin [From Cipro] Allergy Mild Unverified 02/04/21 22:28 amiloride Allergy Unknown Unverified 02/04/21 22:28 buspirone Allergy Unknown Unverified 02/04/21 22:28 lisinopril Allergy Unknown Unverified 02/04/21 22:28 General Stated Complaint: Abd Prob RADHA: 3 Review of Systems Narrative: Constitutional: Negative for weight loss, alert and oriented, well groomed, HEENT: Denies trauma, headaches, blurry vision, nasal discharge, sore throat, trouble swallowing. Chest: Denies chest pain, palpitations, irregular rhythm, hypertension. Respiratory: Denies Shortness of breath, cough, hemoptysis. GI: Denies vomiting, diarrhea, constipation. Positive abdominal pain, nausea, : Denies hematuria, flank pain, rectal bleeding. Neuro: Denies dizziness, blurry vision, weakness, syncope, headache or facial numbness. Hematologic: Denies easy bruising, intolerance to heat or cold, hair loss. [facility] Medical History Abnormal mammogram of left breast Anxiety Basal cell carcinoma nose, removed at [facility] derm December 2019 Diabetes GERD (gastroesophageal reflux disease) Saul's disease Hypertension KARMEN (obstructive sleep apnea) Paroxysmal A-fib Surgical History Cholecystectomy H/O right wrist surgery S/P hysterectomy Family History Mother Heart disease [place] at 47 Diabetes Hypertension Breast cancer Maternal Grandmother Heart disease [place] @47 Diabetes Hypertension Breast cancer Maternal Aunt Heart disease sudden at 54 Maternal Grandfather Stroke Brother Stroke Social History Smoking/Tobacco Use Status: Former Tobacco Use Smoking risk assessment performed?: Yes Alcohol Intake: never Drug use: Never Substance use type: does not use Do you feel safe at home: Yes Do you feel safe in your relationship?: Yes Female Reproductive History Menstrual Menopause type: surgical (2016 s/p hyst) History History 3 Para 2 Hx # Term Pregnancies Multiple births Hx # Pregnancies Ectopic pregnancies AB induced Hx Number of Living Children AB spontaneous Exam Narrative Exam Narrative: Constitutional: Alert and oriented x3. Appears stated age. Normal body habitus. Head: Normocephalic, no trauma. Eyes: Pupils PERRLA, Red reflex noted, EOM's intact. Eyelids symmetrical without lesions, discharge, or swelling. ENT: Bilateral TM's WNL, External ear normal to inspection, no mastoid TTP, swelling, or erythema, Nasal turbinates WNL, no nasal discharge. Normal dentition, Posterior pharynx WNL, no exudate. Chest: RRR, Normal S1, S2, distal pulses intact. Resp: Lungs clear to auscultation bilaterally, no wheezes, rales, or rhonchi. Abdomen: Soft, nondistended generalized tenderness all 4 quadrants worse left lower quadrant. No CVA tenderness. Musculoskeletal: Normal gait, 5/5 strength to all four extremities. Skin: No suspicious rashes or lesions. Capillary refill less than 2 sec. Neurologic: Cranial nerves II-XII intact. Alert and oriented x 3. DTR's intact. Hematologic/Lymphatic: No ecchymosis, no lymphadenopathy. Course Vital Signs Vital signs: Vital Signs Temperature 36.2 C L 04/20/21 16:52 Pulse 66 04/20/21 16:52 Respiratory Rate 17 04/20/21 16:52 Blood Pressure 184/94 H 04/20/21 16:52 Pulse Oximetry 99 04/20/21 16:52 Temperature 36.2 C L 04/20/21 16:52 Temperature Source Temporal Artery Scan 04/20/21 16:52 Pulse 66 04/20/21 16:52 Respiratory Rate 17 04/20/21 16:52 Blood Pressure 184/94 H 04/20/21 16:52 Blood Pressure Position Sitting 04/20/21 16:52 Pulse Oximetry 99 04/20/21 16:52 Oxygen Delivery Method Room Air 04/20/21 16:52 Oxygen Flow Rate 0 04/20/21 16:52 Pain Level 8 04/20/21 16:52
[2021-04-20 17:20] LABS: Abs Immature Grans 0.03 10^3/uL (0.0-0.06); Absolute Basophil Count 0.04 10^3/uL (0.0-0.2); Absolute Eosinophil Count 0.19 10^3/uL (0.0-0.7); Absolute Monocyte Count 0.64 10^3/uL (0.1-0.8); Absolute Neutrophil Count 4.79 10^3/uL (1.2-6.7); Basophils % 0.4; HCT 39.2 % (36.0-46.0); HGB 12.7 g/dL (11.2-15.7); Immature Grans % 0.3; Lymphocytes % 38.8; MCH 29.3 pg (27.0-33.0); MCHC 32.4 % (32.0-36.0); MCV 90.5 fL (80-95); MPV 9.3 fL (8.0-11.0); Monocytes % 6.9; Neutrophils % 51.6; Nucleated RBC 0 %; Platelet Count 250 10^3/uL (130-400); RBC 4.33 10^6/uL (3.93-5.22); RDW 12.9 % (11.7-14.6); RDW-SD 42.9 fL; WBC 9.29 10^3/uL (4.4-10.8)
[2021-04-20 17:21] LABS: Bilirubin Negative (Negative); Blood Trace-intact (Negative); Clarity Clear (Clear); Glucose Negative (Negative); Ketones Negative (Negative); Leukocyte Esterase Negative (Negative); Nitrite Negative (Negative); Urobilinogen 0.2 EU/dL (Up TO 0.2)
[2021-04-20] MEDS: Normal Saline 1,000 ML 1000 ML IV (17:30)
[2021-04-20 17:34] LABS: ALT 21 U/L (14-59); AST 19 U/L (15-37); Albumin 3.7 g/dL (3.4-5.0); Alkaline Phosphatase 85 U/L (46-116); Anion Gap 8.5 mmol/L (3-11); BUN 14 mg/dL (7-18); Bacteria Negative HPF (Negative); Bilirubin, Total 0.4 mg/dL (0.2-1.0); C & S Indicated? No; CO2 26.5 mmol/L (21.0-32.0); CREATININE 0.8 mg/dL (0.55-1.02); Calcium 8.6 mg/dL (8.5-10.1); Casts Negative LPF (Negative); Chloride 105 mmol/L (98-107); Crystals Negative HPF (Negative); Epithelial Cells Few HPF (Negative); Glucose 93 mg/dL (74-106); Lipase 105 U/L (73-393); Magnesium 2.1 mg/dL (1.8-2.4); Mucus Negative (Negative); RBC 0-2 HPF (0-2); Sodium 140 mmol/L (136-145); Total Protein 7.5 g/dL (6.4-8.2)
--- NOTE | 2021-04-20 19:30 | DI.CT_ITS ---
Exam(s) CT ABDOMEN PELVIS WO EXAM: CT ABDOMEN PELVIS WO CLINICAL HISTORY: Abdominal pain, Hematuria, R/O Kidney stone. TECHNIQUE: Imaging Protocol: Axial computed tomography images with coronal and sagittal reformatted images were created and reviewed. Oral: / no COMPARISON: CT ABD PELVIS WO CONTRAST from 03/01/2017 CT ABD PELVIS WO CONTRAST from 03/01/[address] CHEST PE CTA from 02/04/2021 FINDINGS: ABDOMEN: Lung Bases: Normal where visualized. Liver: Enlarged. Hepatic steatosis.. No measurable mass. Gallbladder and biliary tract: Status post cholecystectomy. No radiodense calculus or dilation. Pancreas: Normal density, no abnormal calcifications or inflammatory process. Spleen: Normal. Kidneys: Normal size, contour and axis. Calcifications near the left ureterovesical junction, likely phleboliths. No renal calculi or hydronephrosis.. No masses seen. Adrenal glands: No masses seen. Lymph nodes: Within normal limits. Abdominal Aorta: Abdominal portion non-dilated. PELVIS: Bladder: Symmetric distention, no gross wall thickening. Bowel: No obstruction or bowel wall thickening. Normal appendix. Peritoneal cavity: No ascites, collection or mesenteric inflammatory response. Reproductive organs: Status post hysterectomy 11 centimeter left ovarian cyst. Mild enlargement of t he right ovary. Bones: Within normal limits. IMPRESSION: Question of tiny calcification at the left ureteral vesical junction versus adjacent phlebolith. No hydronephrosis. 11 centimeter left ovarian cyst. Pelvic ultrasound is recommended. RADIATION DOSE DELIVERED: 1,571.23mGy.cm Total DLP DATA REPOSITORY: All CT scans at this facility are submitted to the National Radiology Data Registry (NRDR) Dose Index Registry (DIR) with the [employer] (ACR). RADIATION OPTIMIZATION: All CT scans at this facility use at least one of these dose optimization te chniques: automated exposure control; mA and/or kV adjustment per patient size (includes targeted exa ms where dose is matched to clinical indication); or iterative reconstruction.
[2021-04-20 19:35] VITALS: BP 167/105; PULSE 62; TEMP 36.2; O2SAT 98
--- NOTE | 2021-04-20 20:12 | DI.VRAD_ITS ---
Addendum created by Noman Hernandez MD on 04/20/2021 8:32:14 PM EDT: Left ureterovesical junction calculus 0.4 x 0.2 cm. Initial report created on 04/20/2021 8:11:56 PM EDT: PROCEDURE INFORMATION: Exam: CT Abdomen And Pelvis Without Contrast Exam date and time: 04/20/2021 5:54 PM Age: 51 years old Clinical indication: Other: Abdominal pain, hematuria, R/O kidney stones; Prior surgery; Surgery date: 6+ months; Surgery type: Gallbladder removal and partial hysterectomy TECHNIQUE: Imaging protocol: Computed tomography of the abdomen and pelvis without contrast. Total images: 1738 Radiation optimization: All CT scans at this facility use at least one of these dose optimization techniques: automated exposure control; mA and/or kV adjustment per patient size (includes targeted exams where dose is matched to clinical indication); or iterative reconstruction. COMPARISON: CT ABD PELVIS WO CONTRAST 03/01/2017 5:36 AM FINDINGS: Liver: Normal. No mass. Gallbladder and bile ducts: The gallbladder is surgically absent. Pancreas: Normal. No ductal dilation. Spleen: Normal. No splenomegaly. Adrenal glands: Normal. No mass. Kidneys and ureters: There is a punctate left ureterovesical junction calculus. No hydronephrosis or hydroureter. Stomach and bowel: Unremarkable. No obstruction. No mucosal thickening. Appendix: No evidence of appendicitis. Intraperitoneal space: Unremarkable. No free air. No significant fluid collection. Vasculature: Unremarkable. No abdominal aortic aneurysm. Lymph nodes: Unremarkable. No enlarged lymph nodes. Urinary bladder: Unremarkable as visualized. Reproductive: There is a 9.4 x 6.6 cm fluid attenuating left adnexal mass. Bones/joints: Unremarkable. No acute fracture. Soft tissues: Unremarkable. IMPRESSION: 1. Punctate left ureterovesical junction calculus. No hydronephrosis or hydroureter. 2. Left adnexal fluid attenuating mass 9.4 cm. Nonemergent ultrasound of the pelvis is recommended for characterization. Dictated and Authenticated by: Noman Hernandez MD. Ordering:MANINDER Ramirez MD
[2021-04-20 20:28] VITALS: BP 169/99; PULSE 63; RESP 16; TEMP 36.4; O2SAT 96
--- NOTE | 2021-04-20 20:50 | NUR.NOTE ---
Nursing Note: referal sent to urology to follow up for kidney stone 04/20/21
== END 2021-04-20 21:05 | disposition home or self-care (01) ==
PROVIDERS: Emergency Provider Registered Nurse Emergency; PCP Naturopath
DX: N20.0 Calculus of kidney (principal); R19.09 Other intra-abdominal and pelvic swelling, mass and lump
CPT/HCPCS: 80053; 83690; 96360; 96361; 99284; 74176; 81003; 81015; 83735; 85025; 99283

== ENCOUNTER 2021-04-24 11:15 | Emergency (ER) | payer BC, SELFPAY ==
--- NOTE | 2021-04-24 11:20 | W.ED.GENAD ---
Discharge Plan Disposition Patient Disposition: HOME Condition: Stable Discharge Details Clinical Impression: Adnexal mass Primary Care Provider: Devi Reyes ED Provider: Chrystal Najera Home Meds and New Rx's Prescriptions: Continued losartan 50 mg tablet 75 mg PO DAILY RF: 0 vitamin K2 40 mcg Tablet 40 mcg PO DAILY RF: 0 magnesium citrate Solution 5 - 10 ml PO HS RF: 0 magnesium glycinate 100 mg Tablet 200 mg PO BID RF: 0 cholecalciferol (vitamin D3) 10,000 unit Tablet 10,000 unit PO DAILY RF: 0 aspirin 81 mg Tablet,Delayed Release (Dr/Ec) 81 mg PO DAILY Qty: 30 RF: 0 potassium 99 mg Tablet 198 mg PO DAILY RF: 0 Discharge Instructions Instructions: Ovarian Cyst (ED) Additional Instructions: Your pelvic ultrasound today noted an adnexal cyst-like lesion which may be from your ovary. The community facilitator Dr. Rasheed was notified of this today and her office will be contacting you for follow-up. You can also call their office today to make sure this follow-up appointment is scheduled. Return immediately to the emergency department if you develop any worsening or new concerning symptoms. Referrals: Delores Rasheed DO [OSTEOPATHIC DOCTOR] - Discharge Data Discharge Date/Time-TO BE ENTERED AT DEPARTURE: 04/24/21 12:30 Discharge Physician: Chrystal Najera Medical Decision Making 51-year-old female who presented here 4 days ago for abdominal and back pain and diagnosed with punctate kidney stone returns today for follow up from radiology after outpatient pelvic ultrasound for an adnexal mass noted on her CT 4 days ago. There is a 10 cm adnexal mass which is suspected to be ovarian in origin and potential neoplasm cannot be excluded. Patient is still endorsing some back pain but overall she states most of her symptoms have improved and she is feeling better. Case discussed with Dr. Rasheed who has placed a referral to her front line leader with plans to call her for follow-up. Patient will likely need excision and biopsy of this mass. Patient feels good to go home. Usual and customary return precautions given prior to discharge. Medical Records Medical records reviewed: Yes I reviewed the patient's medical records. Imaging Data Radiologic Study: Radiologist's impression: US PELVIS TRANSVAGINAL CLINICAL HISTORY: LEFT LOWER QUAD PAIN, LT ADNEXAL MASS, HX PARTIAL HYSTERECTOMY. TECHNIQUE: Transabdominal and transvaginal pelvic ultrasound was performed using standard protocol. COMPARISON: CT CT ABDOMEN PELVIS WO from 04/20/2021 FINDINGS: KIDNEYS: Kidneys are symmetric in size. No evidence of renal calculi. No evidence of hydronephrosis. No renal mass or cyst identified. UTERUS: Status post hysterectomy. OVARIES: Right: 3.1 x 2.5 x 2.6 cm Cyst or mass: None. Left: In the left adnexa, there is a 10.9 x 7.7 x 6.2 cm anechoic lesion. There are several echogenic avascular small foci along the wall. DOPPLER: Color: Symmetric and uniform flow to the right ovary. No hyperemia. Duplex: Normal right ovarian arterial waveform is visualized. CUL-DE-SAC: Free fluid: None. Other: None. IMPRESSION: 1. Normal sonographic appearance of the kidneys. 2. Status post hysterectomy. 3. 10.9 cm cystic lesion in the left adnexa. This may be ovarian in origin and a neoplasm cannot be excluded. There are echogenic avascular foci along the wall of the mass. Gynecologic consult is recommended for further evaluation. 4. Results of this exam have been verbally communicated with provider. HPI General Mode of arrival: ambulatory. Date/Time Provider Initiated Documentation: 04/24/21 11:16. Limitations to Documentation: no limitations. Information obtained by: patient. HPI Narrative: Patient is a 51-year-old female who presents from radiology after she had an outpatient pelvic ultrasound for evaluation of an adnexal mass noted on CT from an ED visit 4 days ago. Patient was seen here on 04/20 for abdominal and back pain and diagnosed with a punctate left UVJ kidney stone. At that time she was also noted to have a left adnexal mass which was recommended to have further evaluation with an outpatient pelvic ultrasound. Patient is presenting here from radiology as directed by pelvic US order. She states she is still having some back pain but states her abdominal pain is resolved. She denies any fever or vomiting. Related Data Home Medications Medication Instructions Recorded Confirmed cholecalciferol (vitamin D3) 10,000 unit PO DAILY 01/27/19 04/24/21 magnesium citrate 5 - 10 ml PO HS 01/27/19 04/24/21 magnesium glycinate 200 mg PO BID 01/27/19 04/24/21 vitamin K2 40 mcg PO DAILY 01/27/19 04/24/21 aspirin 81 mg PO DAILY #30 tab 01/28/19 04/24/21 losartan 50 mg tablet 75 mg PO DAILY tab 01/01/21 04/24/21 potassium 198 mg PO DAILY 04/20/21 04/24/21 Previous Rx's Medication Instructions Recorded aspirin 81 mg PO DAILY #30 tab 01/28/19 Allergies Allergy/AdvReac Type Severity Reaction Status Date / Time Iodinated Contrast Media Allergy Severe Racing Unverified 04/24/21 11:29 [Iodinated Contrast Media - Heart,SOB,Facial IV Dye] flushing sulfamethoxazole Allergy Severe Anaphylaxsi Unverified 04/24/21 11:29 [From Bactrim] s spironolactone Allergy Intermediate Skin Rash Unverified 04/24/21 11:29 ciprofloxacin [From Cipro] Allergy Mild Unverified 04/24/21 11:29 amiloride Allergy Unknown Unverified 04/24/21 11:29 buspirone Allergy Unknown Unverified 04/24/21 11:29 lisinopril Allergy Unknown Unverified 04/24/21 11:29 General RADHA: 3 Review of Systems All systems reviewed & are unremarkable except as noted in HPI and below Constitutional Constitutional: Reports as per HPI, Denies chills and Denies fever(s) Eyes Eyes: Denies blurry vision ENT Ears, Nose, Mouth, and Throat: Denies dizziness, Denies sore throat and Denies throat swelling Cardiovascular Cardiovascular: Denies chest pain and Denies dyspnea Respiratory Respiratory: Denies cough and Denies dyspnea Gastrointestinal Gastrointestinal: Denies abdominal pain, Denies diarrhea and Denies vomiting Genitourinary Genitourinary: Denies hematuria and Denies dysuria Musculoskeletal Musculoskeletal: Reports back pain and Denies numbness Integumentary/Breasts Skin/Breast: Denies lesions and Denies rash Neurologic Neurologic: Denies dizziness, Denies localized weakness and Denies numbness Allergic/Immunologic Allergic/Immunologic: Denies throat swelling [facility] Medical History Abnormal mammogram of left breast Anxiety Basal cell carcinoma nose, removed at [facility] derm December 2019 Diabetes GERD (gastroesophageal reflux disease) Saul's disease Hypertension KARMEN (obstructive sleep apnea) Paroxysmal A-fib Surgical History Cholecystectomy H/O right wrist surgery S/P hysterectomy Family History Mother Heart disease [place] at 47 Diabetes Hypertension Breast cancer Maternal Grandmother Heart disease [place] @47 Diabetes Hypertension Breast cancer Maternal Aunt Heart disease sudden at 54 Maternal Grandfather Stroke Brother Stroke Social History Smoking/Tobacco Use Status: Former Tobacco Use Smoking risk assessment performed?: Yes Alcohol Intake: never Drug use: Never Substance use type: does not use Do you feel safe at home: Yes Do you feel safe in your relationship?: Yes Female Reproductive History Menstrual Menopause type: surgical (2017 s/p hyst) History History 3 Para 2 Hx # Term Pregnancies Multiple births Hx # Pregnancies Ectopic pregnancies AB induced Hx Number of Living Children AB spontaneous Exam Const General: cooperative and no acute distress Nutritional Appearance: obese morbidly obese HENMT Head: normal to inspection Face and sinus: normal facial exam Eyes General: appearance normal, both eyes and all related structures EOM: EOM intact bilaterally Neck Neck: normal visual inspection and No submandibular swelling Lymphatic: no lymphadenopathy noted Chest Chest: normal inspection of the chest and no tenderness Resp Effort & Inspection: normal respiratory effort and able to speak in complete sentences Auscultation: clear to auscultation bilaterally Cardio Rate: regular rate Rhythm: regular rhythm GI Inspection: normal to inspection and obesity Palpation: soft, not firm, not rigid and nontender Auscultation: normal bowel sounds Skin General skin exam: no rashes or lesions noted Neuro General: patient alert, patient awake and patient oriented x3 Cognition: normal cognition Speech: speech normal Motor: muscle tone normal throughout Sensory Exam: no sensory deficits noted Extrem General: normal to inspection, full ROM, capillary refill normal, no calf tenderness bilaterally and no edema Psych Appearance: grossly normal Mental Status: mental status grossly normal Speech and Movement: speech and movement normal Affect: normal affect
[2021-04-24 11:25] VITALS: BP 169/105; PULSE 61; RESP 16; TEMP 36.4; O2SAT 100
--- NOTE | 2021-04-24 12:29 | NUR.NOTE ---
Nursing Note: At the patient request the pelvic US report was faxed to Dr. Devi Reyes, fax [phone]. Gemma Thomas
== END 2021-04-24 12:30 | disposition home or self-care (01) ==
PROVIDERS: Emergency Provider Physician Assistant; PCP Naturopath
DX: R19.09 Other intra-abdominal and pelvic swelling, mass and lump (principal)

== ENCOUNTER 2021-04-27 01:44 | Outpatient (CLI) | payer BC, SELFPAY ==
[2021-04-27 17:03] LABS: CEA <2.0 ng/mL (See Note)
[2021-04-30 09:51] LABS: CA 19-9 7 U/mL (<35)
[2021-04-30 12:10] LABS: CA 125 6 U/mL (<30)
== END 2021-04-27 01:45 | disposition home or self-care (01) ==
LOC: LBO 01:44
PROVIDERS: PCP Naturopath; Visit Provider Obstetrics & Gynecology
DX: R19.09 Other intra-abdominal and pelvic swelling, mass and lump (principal)
CPT/HCPCS: 36415; 86304; 82378; 86301

== ENCOUNTER 2021-05-10 00:38 | Outpatient (CLI) | payer BC, SELFPAY ==
--- NOTE | 2021-05-10 09:00 | DI.CT_ITS ---
Exam(s) CT ABDOMEN PELVIS WO/W EXAM: CT ABDOMEN PELVIS WO/W CLINICAL HISTORY: hematuria,? DISTAL LT URETERAL STONE, R31.29. TECHNIQUE: Imaging Protocol: Axial computed tomography images with coronal and sagittal reformatted images were created and reviewed CONTRAST MATERIAL: Intravenous: Omnipaque 100cc Oral: None COMPARISON: CT CT ABDOMEN PELVIS WO from 04/20/2021 FINDINGS: VISUALIZED LUNG BASES: No nodules nor pleural effusions evident. ABDOMEN: There is no ascites. LIVER: There are no focal hepatic lesions evident . GALLBLADDER/BILIARY: Gallbladder is again noted be surgically absent. CBD is not dilated. PANCREAS: No evidence of pancreatic mass nor dilatation of the pancreatic duct. SPLEEN: Spleen is not enlarged. No obvious intrasplenic lesions. Splenic and portal veins are paten t. ADRENALS: There are no significant adrenal masses. KIDNEYS:No cysts evident. No solid renal masses. No intrarenal calculi. There does appear to be mi ld columnization of the left ureter which is opacified down to the mid lower pelvis. The previously present calcification at the left ureterovesical junction level is again noted. Unfortunately still difficult to determine if this is is a calculus at the UVJ or phlebolith. However, suspect possible calculus given that ureter is not opacified at this level. ABDOMINAL AORTA: Abdominal aorta is not enlarged. LYMPH NODES:There is no retroperitineal nor paraaortic adenopathy. ABDOMINAL WALL: No evidence of significant anterior abdominal wall hernia. GI: There is no evidence of bowel obstruction, free air, nor abscess. PELVIS: GI: No evidence of appendicitis.No evidence of sigmoid diverticulitis. LYMPH NODES: There is no intrapelvic nor inguinal adenopathy. REPRODUCTIVE: Uterus is again noted be surgically absent. There is a large cystic mass in pelvis beh ind the urinary bladder which is probably ovarian origin and measures 6 x 7 by 8.5 cm. Not calcified . No free fluid. URINARY BLADDER: No calculi nor obvious masses evident OSSEOUS: No significant osseous lesions. IMPRESSION: 1. On today's study which was performed with CTU protocol instill difficult to determine if the previ ously described calcification in the region of the left ureterovesical junction is a calculus within the UVJ or phlebolith adjacent to the UVJ this level. However, the left ureter does appear to be min imally prominent when compared to the opposite-right ureter. There is no edema evident in the adjace nt urinary bladder wall. No other calculi seen in the kidneys. 2. Again noted is a large cystic mass in the pelvis measuring approximately 8.5 x 7 x 6 cm and most p robably of ovarian origin. The uterus appears to be surgically absent. Although there is no free fl uid in the pelvis still cannot exclude the possibly that this is a cystic neoplasm. Recommend follow -up ultrasound which may add specificity. Close follow-up of this cystic pelvic mass is recommended. RADIATION DOSE DELIVERED: 4,168.17mGy.cm Total DLP DATA REPOSITORY: All CT scans at this facility are submitted to the National Radiology Data Registry (NRDR) Dose Index Registry (DIR) with the [employer] ([employer]). RADIATION OPTIMIZATION: All CT scans at this facility use at least one of these dose optimization te chniques: automated exposure control; mA and/or kV adjustment per patient size (includes targeted exa ms where dose is matched to clinical indication); or iterative reconstruction.
[2021-05-10] MEDS: Normal Saline Flush 10 ML SYR IVP (15:55)
== END 2021-05-10 00:58 ==
PROVIDERS: PCP Naturopath; Visit Provider Urology
DX: R31.29 Other microscopic hematuria (principal); N94.89 Other specified conditions associated with female genital organs and menstrual cycle; Z90.710 Acquired absence of both cervix and uterus
CPT/HCPCS: 74178

== ENCOUNTER 2021-06-23 07:37 | Emergency (ER) | payer BC, SELFPAY ==
[2021-06-23] VITALS (60 sets, daily range): BP systolic 120–174; BP diastolic 75–115; PULSE 53–89; RESP 10–29; TEMP 36.3; O2SAT 93–100
--- NOTE | 2021-06-23 07:45 | RT.EKG_ITS ---
APPROVED REPORT Exam: Resting ECG Reason for Exam: passed out Patient Location: E HR:68 bpm ECG Measurements Heart Rate 68 AXIS AZ 189 P 4 QRSd 95 QRS 57 QT 420 T 38 QTc 446 Conclusion Sinus rhythm...normal P axis, V-rate 60- 99
--- NOTE | 2021-06-23 08:00 | DI.CT_ITS ---
Exam(s) CT BRAIN NECK CTA EXAM: CT BRAIN NECK CTA CLINICAL HISTORY: TORO/ Near syncope, bilat neck pain. TECHNIQUE: Imaging Protocol: Axial CT angiography was performed with multi-slice acquisition and mu lti-planar and/or 3D reconstructions. CONTRAST MATERIAL: Intravenous: Omnipaque 350 Contrast volume:85 cc COMPARISON: CT CT ABDOMEN PELVIS WO/W from 05/10/2021 FINDINGS: The patient was pre-medicated with Benadryl due to previous hive reaction to IV contrast May 09 CT Head W/O and W contrast: Ventricles and Extra axial spaces: Normal in size and morphology for the patient's age. Hemorrhage: None. Cerebral parenchyma: Normal. Midline shift: None. Brainstem/Cerebellum: Normal. Calvarium: Normal. Visualized Paranasal sinuses/Mastoids: Clear. Soft Tissues: Unremarkable. Enhancement: Normal. CTA Brain W: Internal Carotid Arteries: Petrous: Normal. Cavernous: Normal. Cerebral: Normal. Middle Cerebral Arteries: Right: No aneurysm, occlusion or significant stenosis. Left: No aneurysm, occlusion or significant stenosis. Anterior Cerebral Arteries: Right: No aneurysm, occlusion or significant stenosis. Left: No aneurysm, occlusion or significant stenosis. Posterior cerebral Arteries: Right: No aneurysm, occlusion or significant stenosis. Left: No aneurysm, occlusion or significant stenosis. Vertebral Arteries: Right: No aneurysm, occlusion or significant stenosis. Left: No aneurysm, occlusion or significant stenosis. Basilar Artery: No aneurysm, occlusion or significant stenosis. CTA Neck W: Common Carotid: Right: No aneurysm, occlusion or significant stenosis. Left: No aneurysm, occlusion or significant stenosis. External Carotid: Right: No aneurysm, occlusion or significant stenosis. Left: No aneurysm, occlusion or significant stenosis. Internal Carotid: Right: No aneurysm, occlusion or significant stenosis. Left: No aneurysm, occlusion or significant stenosis. Vertebral Artery: Right: No aneurysm, occlusion or significant stenosis. Left: No aneurysm, occlusion or significant stenosis. Lung Apices: Normal. Bones: Normal. Soft Tissues: Normal. IMPRESSION: 1. Normal CTA examination of the [place]. 2. Unremarkable CT Head. 3. Normal CTA examination of the neck. RADIATION DOSE DELIVERED: 2,132.79mGy.cm Total DLP DATA REPOSITORY: All CT scans at this facility are submitted to the National Radiology Data Registry (NRDR) Dose Index Registry (DIR) with the [employer] (A[employer]). RADIATION OPTIMIZATION: All CT scans at this facility use at least one of these dose optimization te chniques: automated exposure control; mA and/or kV adjustment per patient size (includes targeted exa ms where dose is matched to clinical indication); or iterative reconstruction.
--- NOTE | 2021-06-23 08:15 | DI.RAD_ITS ---
Exam(s) XR CHEST 2V PA LATERAL EXAM: XR CHEST 2V PA LATERAL CLINICAL HISTORY: near syncope TECHNIQUE: 2D digital imaging was performed. COMPARISON: CR XR KNEE LT 3V AP,LAT,CHINO from 01/01/2021 FINDINGS: Examination mildly limited by body habitus. MEDIASTINUM: Normal. HEART: Mildly enlarged. PULMONARY VASCULATURE: Normal. LUNGS: Clear. PLEURAL SPACE: No pleural effusion or pneumothorax. BONE:Unremarkable for age. IMPRESSION: No acute abnormality. DATA REPOSITORY: RADIATION DOSE DELIVERED:
[2021-06-23] MEDS: Meclizine 25 MG TAB PO (08:31)
[2021-06-23] MEDS: Normal Saline 1,000 ML 150 ML IV (08:33)
[2021-06-23 08:37] LABS: Abs Immature Grans 0.01 10^3/uL (0.0-0.06); Absolute Basophil Count 0.06 10^3/uL (0.0-0.2); Absolute Eosinophil Count 0.38 10^3/uL (0.0-0.7); Absolute Lymphocyte Count 2.79 10^3/uL (1.2-3.4); Absolute Neutrophil Count 2.78 10^3/uL (1.2-6.7); Basophils % 0.9; Eosinophils % 5.7; HCT 38.6 % (36.0-46.0); HGB 12.4 g/dL (11.2-15.7); Immature Grans % 0.2; Lymphocytes % 42.1; MCH 28.8 pg (27.0-33.0); MCHC 32.1 % (32.0-36.0); MCV 89.6 fL (80-95); MPV 9.7 fL (8.0-11.0); Monocytes % 9.1; Nucleated RBC 0 %; Platelet Count 258 10^3/uL (130-400); RBC 4.31 10^6/uL (3.93-5.22); RDW 13.2 % (11.7-14.6); RDW-SD 43.4 fL; WBC 6.62 10^3/uL (4.4-10.8)
[2021-06-23 08:46] LABS: Magnesium 2.2 mg/dL (1.8-2.4)
[2021-06-23 08:49] LABS: PTT Activated 24.8 sec (21.0-27.5); Prothrombin Time 9.9 sec (9.3-11.0)
[2021-06-23 08:58] LABS: ALT 27 U/L (14-59); AST 15 U/L (15-37); Albumin 3.8 g/dL (3.4-5.0); Alkaline Phosphatase 101 U/L (46-116); Anion Gap 7.3 mmol/L (3-11); BUN 13 mg/dL (7-18); Bilirubin, Total 0.6 mg/dL (0.2-1.0); CO2 29.7 mmol/L (21.0-32.0); CREATININE 0.8 mg/dL (0.55-1.02); Calcium 8.9 mg/dL (8.5-10.1); Chloride 105 mmol/L (98-107); Glucose 120 mg/dL (74-106); Potassium 3.8 mmol/L (3.5-5.1); Sodium 142 mmol/L (136-145); Total Protein 7.5 g/dL (6.4-8.2)
[2021-06-23 09:01] LABS: Troponin I < 0.05 ng/mL (<0.06)
[2021-06-23 09:04] LABS: D-Dimer 433 ng/mlFEU (<500)
[2021-06-23 09:17] LABS: Bilirubin Negative (Negative); Blood Negative (Negative); Clarity Clear (Clear); Glucose Negative (Negative); Ketones Negative (Negative); Leukocyte Esterase Negative (Negative); Nitrite Negative (Negative); Specific Gravity 1.015 (1.005-1.025); Urobilinogen 0.2 EU/dL (Up TO 0.2); pH 7.5 (5-8)
[2021-06-23] MEDS: diazePAM 10 MG/2 ML SYR 5 MG IVP (09:29)
--- NOTE | 2021-06-23 09:31 | W.ED.GENAD ---
Discharge Plan Disposition Patient Disposition: HOME Condition: Improving Discharge Details Clinical Impression: Near syncope, Cephalgia, Dizziness, Hypertension Primary Care Provider: Devi Reyes ED Provider: Binh Smith Home Meds and New Rx's Prescriptions: New meclizine 25 mg tablet 25 mg PO TID PRN (Reason: dizziness) Qty: 14 RF: 0 Continued losartan 50 mg tablet 100 mg PO DAILY RF: 0 vitamin K2 40 mcg Tablet 40 mcg PO DAILY RF: 0 magnesium citrate Solution 5 - 10 ml PO HS RF: 0 magnesium glycinate 100 mg Tablet 200 mg PO BID RF: 0 cholecalciferol (vitamin D3) 10,000 unit Tablet 10,000 unit PO DAILY RF: 0 aspirin 81 mg Tablet,Delayed Release (Dr/Ec) 81 mg PO DAILY Qty: 30 RF: 0 potassium 99 mg Tablet 198 mg PO DAILY RF: 0 hydrochlorothiazide 25 mg tablet 25 mg PO DAILY RF: 0 Discharge Instructions Instructions: Hypertension (ED), Near Syncope (ED), Dizziness (ED), General Headache (ED) Additional Instructions: Work-up in the ER does not reveal any obvious emergent process. Headache and dizziness are improving but not resolved. Blood pressure is also improving, it does appear as though you are chronically hypertensive. I did contact neurology at [facility], they did not believe a emergent MRI was indicated, and they did not have any availability to accept you in transfer. Admission to our facility was offered but this was declined, you would rather go home. Meclizine as directed. Please watch for new or worsening symptoms and return to the ER for any concerns. Lastly, I recommend contacting your primary care provider on Friday to discuss your ongoing symptoms and need for outpatient reevaluation. Discharge Data Discharge Date/Time-TO BE ENTERED AT DEPARTURE: 06/23/21 14:50 Medical Decision Making This is a 51-year-old female, past medical history that includes anxiety, diabetes, GERD, Saul's disease, hypertension, obesity, currently being worked up for Nusrat's, presents to the ER reporting a headache for the past few days, difficulty controlling her hypertension, this morning woke up with a worsening frontal headache, had a near syncopal episode after getting up from the toilet, and now feels dizzy, like she is underwater, feeling off balance. Clinically she appears well, nontoxic, no acute distress. Neurologically she appears to be intact. No obvious nystagmus. She is afebrile, O2 sats 100% on room air, pulse in the 70s, no evidence of tachypnea, blood pressure 172/97. Differential is wide, includes but not excluded to hypertensive urgency, hypertensive emergency, headache, intracranial bleed, cervical dissection, atypical ACS, syncope, near syncope, blame depletion, anemia, vertigo, M?ni?re's disease, etc. Will obtain cardiac work-up including CTA of the neck and brain, give IV fluid and p.o. meclizine. Initial laboratory values are unremarkable for obvious emergent process. Normal CBC, coags including a normal D-dimer of 433, will not obtain CTA of the chest. Chemistries reveal a glucose of 120, nonfasting, otherwise unremarkable, initial troponin less than 0.05, urinalysis negative as well. Patient reports no improvement with the meclizine. Blood pressure essentially unchanged. Will now provide IV Valium 5 mg Upon reevaluation patient reports moderate relief with Valium however her symptoms are not gone. Blood pressure is trending down slightly. Awaiting CT and x-ray CT imaging and x-ray are unremarkable for any acute process. Patient reports that her headache is still present, now that her CT imaging is unremarkable will give IV Toradol. Upon reevaluation patient reports both headache and dizziness is improving but has not resolved. Given she is still symptomatic, I will contact neurology at [facility], at 1100, for potential transfer if they feel as though emergent MRI is indicated as we cannot obtain this here in the ER. I received a call from neurology at [phone], Dr. Linares, she states that [facility] is at capacity but does not believe emergent transfer is indicated. MRI is not emergently indicated. At this time she recommends treating the hypertension, headache, and admitting to our facility for near syncope, potential cardiac work-up. I discussed the conversation that I had with Dr. Linares with both the patient and her significant other. They state that most of her care is at [facility] and they were comfortable being transferred to [facility] for potential MRI and/or neurology but would prefer not to be transferred elsewhere. They also state that they are willing to await symptomatic control with additional medications and a repeat troponin but they live just a few minutes away and if she is overall feeling better they would prefer to be discharged home instead of being admitted to our facility for observation. Patient was then given IV Benadryl, Reglan, magnesium and hydralazine. Repeat blood pressure is now 151/75. Patient states that her symptoms continue to improve but have not resolved completely. Patient is now tolerating p.o. intake without difficulty. She is agreeable to awaiting a repeat troponin. Repeat troponin remains less than 0.05. Patient was observed in the ER for nearly 7 hours. There is no gross neurologic deficit. She is able to tolerate p.o. intake without difficulty. Blood pressure is improving and her headache and dizziness are both improving although not resolved completely. She is able to ambulate slowly but steadily, she does not appear ataxic. Once again discussed her work-up both with the patient and her in length, answering all questions to the best of my ability. At the recommendation of Dr. Linares we once again discussed admission to our facility patient declines. She was given strict discharge and return precautions. Otherwise she will contact her primary care provider on Friday discuss her ER visit and need for outpatient reevaluation. Blood pressure upon discharge is 148/75. Will provide prescription for oral meclizine. This documentation was generated using [employer] dictation system, please disregard any oddities of phrase or misspellings. Medical Records Medical records reviewed: Yes I reviewed the patient's medical records. Imaging Data Radiologic Study: Attestation: I personally reviewed and interpreted this imaging study as follows: Imaging: X-Ray Radiologist's impression: Exam: XR Chest Exam date and time: 06/23/2021 8:18 AM Age: 51 years old Clinical indication: Other: Near syncope TECHNIQUE: Imaging protocol: XR of the chest. Views: 2 views. COMPARISON: CT CHEST PE CTA 02/04/2021 11:10 PM FINDINGS: Lungs: Mild venous congestion Pleural spaces: Unremarkable. No pleural effusion. No pneumothorax. Heart/Mediastinum: Stable cardiomegaly Bones/joints: Unremarkable. IMPRESSION: No evidence of acute process radiographically Radiologic Study #2: Attestation: I personally reviewed and interpreted this imaging study as follows: Imaging: CT Scan Radiologist's impression: PROCEDURE INFORMATION: Exam: CT Angiography Head With Contrast, Arteriography Exam date and time: 06/23/2021 8:18 AM Age: 51 years old Clinical indication: Other: Flores/ near syncope, bilat neck pain TECHNIQUE: Imaging protocol: Computed tomography angiography of the head with contrast. Exam focused on the arteries. 3D rendering (Not supervised by radiologist): MIP and/or 3D reconstructed images were created by the technologist. Contrast material: OMNIPAQUE 350; Contrast volume: 85 ml; Contrast route: INTRAVENOUS (IV); COMPARISON: CT BRAIN NECK CTA 02/04/2021 10:51 PM FINDINGS: ANTERIOR CIRCULATION: Right internal carotid artery: Unremarkable. Intracranial segment is patent with no significant stenosis. No aneurysm. Right middle cerebral artery: Unremarkable. No occlusion or significant stenosis. No aneurysm. Right anterior cerebral artery: Unremarkable. No occlusion or significant stenosis. No aneurysm. Left internal carotid artery: Unremarkable. Intracranial segment is patent with no significant stenosis. No aneurysm. Left middle cerebral artery: Unremarkable. No occlusion or significant stenosis. No aneurysm. Left anterior cerebral artery: Unremarkable. No occlusion or significant stenosis. No aneurysm. POSTERIOR CIRCULATION: Right vertebral artery: Unremarkable. No occlusion or significant stenosis. No aneurysm. Left vertebral artery: Unremarkable. No occlusion or significant stenosis. No aneurysm. Basilar artery: Unremarkable. No occlusion or significant stenosis. No aneurysm. Right posterior cerebral artery: Unremarkable. No occlusion or significant stenosis. No aneurysm. Left posterior cerebral artery: Unremarkable. No occlusion or significant stenosis. No aneurysm. Brain: No definite mass, mass effect, or midline shift. No abnormal enhancement Cerebral ventricles: No ventriculomegaly. Bones/joints: Unremarkable. No acute fracture. Soft tissues: Unremarkable. Nonspecific submandibular lymph nodes bilaterally IMPRESSION: No large vessel stenosis or occlusion. PROCEDURE INFORMATION: Exam: CT Angiography Neck With Contrast Exam date and time: 06/23/2021 8:18 AM Age: 51 years old Clinical indication: Other: Flores/ near syncope, bilat neck pain TECHNIQUE: Imaging protocol: Computed tomography angiography of the neck with contrast. 3D rendering (Not supervised by radiologist): MIP and/or 3D reconstructed images were created by the technologist. Contrast material: OMNIPAQUE 350; Contrast volume: 85 ml; Contrast route: INTRAVENOUS (IV); COMPARISON: CT BRAIN NECK CTA 02/04/2021 10:51 PM FINDINGS: Right common carotid artery: No stenosis. No dissection or occlusion. Right internal carotid artery: No stenosis of the extracranial segment. No dissection or occlusion. Right external carotid artery: No occlusion or stenosis of the origin. Left common carotid artery: No stenosis. No dissection or occlusion. Left internal carotid artery: No stenosis of the extracranial segment. No dissection or occlusion. Left external carotid artery: No occlusion or stenosis of the origin. Right vertebral artery: No stenosis. No dissection or occlusion. Left vertebral artery: No stenosis. No dissection or occlusion. Soft tissues: Normal. No significant soft tissue swelling. Bones/joints: No acute fracture. IMPRESSION: No stenosis or occlusion. Lab Data Lab results reviewed: Yes I reviewed the patient's lab results. Labs: Laboratory Tests Range/Units 06/23/21 06/23/21 06/23/21 08:15 08:15 08:15 WBC (4.4-10.8) 10^3/uL 6.62 RBC (3.93-5.22) 10^6/uL 4.31 Hgb (11.2-15.7) g/dL 12.4 Hct (36.0-46.0) % 38.6 MCV (80-95) fL 89.6 MCH (27.0-33.0) pg 28.8 MCHC (32.0-36.0) % 32.1 RDW (11.7-14.6) % 13.2 Plt Count (130-400) 10^3/uL 258 MPV (8.0-11.0) fL 9.7 Immature Gran % 0.2 Neutrophils % 42.0 Lymphocytes % 42.1 Monocytes % 9.1 Eosinophils % 5.7 Basophils % 0.9 Nucleated RBC % % 0 Absolute Neutrophils (1.2-6.7) 10^3/uL 2.78 Absolute Lymphocytes (1.2-3.4) 10^3/uL 2.79 Absolute Monocytes (0.1-0.8) 10^3/uL 0.60 Absolute Eosinophils (0.0-0.7) 10^3/uL 0.38 Absolute Basophils (0.0-0.2) 10^3/uL 0.06 PT (9.3-11.0) sec INR (0.9-1.1) APTT (21.0-27.5) sec D-Dimer (<500) ng/mlFEU Sodium (136-145) mmol/L 142 Potassium (3.5-5.1) mmol/L 3.8 Chloride (98-107) mmol/L 105 Carbon Dioxide (21.0-32.0) mmol/L 29.7 Anion Gap (3-11) mmol/L 7.3 BUN (7-18) mg/dL 13 Creatinine (0.55-1.02) mg/dL 0.8 Estimated GFR/1.73 m2 (mL/min/1.73m2) >= 60.00 Glucose (74-106) mg/dL 120 H Calcium (8.5-10.1) mg/dL 8.9 Magnesium (1.8-2.4) mg/dL 2.2 Total Bilirubin (0.2-1.0) mg/dL 0.6 AST (15-37) U/L 15 ALT (14-59) U/L 27 Alkaline Phosphatase (46-116) U/L 101 Troponin I (<0.06) ng/mL < 0.05 Total Protein (6.4-8.2) g/dL 7.5 Albumin (3.4-5.0) g/dL 3.8 TSH (0.36-3.74) uIU/mL 1.80 Urine Color (Yellow) Urine Clarity (Clear) Urine pH (5-8) Ur Specific [place] (1.005-1.025) Urine Protein (Negative) mg/dL Urine Ketones (Negative) mg/dL Urine Blood (Negative) Urine Nitrite (Negative) Urine Bilirubin (Negative) Urine Urobilinogen (Up TO 0.2) EU/dL Ur Leukocyte Esterase (Negative) Urine Glucose (Negative) mg/dL Range/Units 06/23/21 06/23/21 06/23/21 08:15 08:25 12:30 WBC (4.4-10.8) 10^3/uL RBC (3.93-5.22) 10^6/uL Hgb (11.2-15.7) g/dL Hct (36.0-46.0) % MCV (80-95) fL MCH (27.0-33.0) pg MCHC (32.0-36.0) % RDW (11.7-14.6) % Plt Count (130-400) 10^3/uL MPV (8.0-11.0) fL Immature Gran % Neutrophils % Lymphocytes % Monocytes % Eosinophils % Basophils % Nucleated RBC % % Absolute Neutrophils (1.2-6.7) 10^3/uL Absolute Lymphocytes (1.2-3.4) 10^3/uL Absolute Monocytes (0.1-0.8) 10^3/uL Absolute Eosinophils (0.0-0.7) 10^3/uL Absolute Basophils (0.0-0.2) 10^3/uL PT (9.3-11.0) sec 9.9 INR (0.9-1.1) 1.0 APTT (21.0-27.5) sec 24.8 D-Dimer (<500) ng/mlFEU 433 Sodium (136-145) mmol/L Potassium (3.5-5.1) mmol/L Chloride (98-107) mmol/L Carbon Dioxide (21.0-32.0) mmol/L Anion Gap (3-11) mmol/L BUN (7-18) mg/dL Creatinine (0.55-1.02) mg/dL Estimated GFR/1.73 m2 (mL/min/1.73m2) Glucose (74-106) mg/dL Calcium (8.5-10.1) mg/dL Magnesium (1.8-2.4) mg/dL Total Bilirubin (0.2-1.0) mg/dL AST (15-37) U/L ALT (14-59) U/L Alkaline Phosphatase (46-116) U/L Troponin I (<0.06) ng/mL < 0.05 Total Protein (6.4-8.2) g/dL Albumin (3.4-5.0) g/dL TSH (0.36-3.74) uIU/mL Urine Color (Yellow) Yellow Urine Clarity (Clear) Clear Urine pH (5-8) 7.5 Ur Specific [place] (1.005-1.025) 1.015 Urine Protein (Negative) mg/dL Negative Urine Ketones (Negative) mg/dL Negative Urine Blood (Negative) Negative Urine Nitrite (Negative) Negative Urine Bilirubin (Negative) Negative Urine Urobilinogen (Up TO 0.2) EU/dL 0.2 Ur Leukocyte Esterase (Negative) Negative Urine Glucose (Negative) mg/dL Negative ECG Data Attestation: I personally reviewed and interpreted this ECG (s) as follows: Interpretation: Please see official report by Dr. Nam. Sinus rhythm, ventricular rate of 68, and no STEMI HPI General Mode of arrival: ambulatory. Date/Time Provider Initiated Documentation: 06/23/21 07:49. Limitations to Documentation: no limitations. Information obtained by: patient and family. HPI Narrative: This is a 51-year-old female, past medical history that includes anxiety, diabetes, GERD, thyroid disease, hypertension, proximal A. 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 Patient reports a global headache over the past several days, this morning was more severe and concentrated in the frontal region, headache almost resolved at this time. Patient reports a sensation that she is underwater, feels dizzy, off balance, worse with movement of her head. Does not feel like the room is spinning. She states that her hypertension has been very difficult to control over the last year, took hydrochlorothiazide yesterday, was called in by her [facility] team. This morning she was attempting to get up from the toilet, upon standing states everything went black and she felt like she could pass out but did not completely pass out, did not fall to the ground, ended up leaning onto the counter until her symptoms resolved in a matter of few seconds. She denies any visual changes. She reports ongoing bilateral neck pain. She states that when her symptoms began she had a mild chest pressure but no longer, denies shortness of breath, abdominal pain, nausea, vomiting, numbness, tingling, weakness, change in bowel or bladder function. Patient has taken her regular medications. Related Data Home Medications Medication Instructions Recorded Confirmed cholecalciferol (vitamin D3) 10,000 unit PO DAILY 01/27/19 06/23/21 magnesium citrate 5 - 10 ml PO HS 01/27/19 06/23/21 magnesium glycinate 200 mg PO BID 01/27/19 06/23/21 vitamin K2 40 mcg PO DAILY 01/27/19 06/23/21 aspirin 81 mg PO DAILY #30 tab 01/28/19 06/23/21 potassium 198 mg PO DAILY 04/20/21 06/23/21 losartan 50 mg tablet 100 mg PO DAILY tab 04/26/21 06/23/21 hydrochlorothiazide 25 mg PO DAILY 06/23/21 06/23/21 meclizine 25 mg PO TID PRN #14 tab 06/23/21 Previous Rx's Medication Instructions Recorded aspirin 81 mg PO DAILY #30 tab 01/28/19 meclizine 25 mg PO TID PRN #14 tab 06/23/21 Allergies Allergy/AdvReac Type Severity Reaction Status Date / Time sulfamethoxazole Allergy Severe Anaphylaxsi Unverified 06/23/21 08:12 [From Bactrim] s spironolactone Allergy Intermediate Skin Rash Unverified 06/23/21 08:12 ciprofloxacin [From Cipro] Allergy Mild Unverified 06/23/21 08:12 amiloride Allergy Unknown Unverified 06/23/21 08:12 buspirone Allergy Unknown Unverified 06/23/21 08:12 lisinopril Allergy Unknown Unverified 06/23/21 08:12 contast dye Allergy Mild Uncoded 06/23/21 10:36 General Stated Complaint: Dizzy/Sync RADHA: 2 Review of Systems Constitutional Constitutional: Denies fatigue, Denies fever(s), Reports headache(s) and Denies weakness Eyes Eyes: Denies change in vision ENT Ears, Nose, Mouth, and Throat: Reports headache(s), Reports neck pain and Reports disequilibrium Cardiovascular Cardiovascular: Reports chest pain and Denies dyspnea Respiratory Respiratory: Denies cough and Denies dyspnea Gastrointestinal Gastrointestinal: Denies abdominal pain, Denies nausea and Denies vomiting Genitourinary Genitourinary: Denies dysuria Musculoskeletal Musculoskeletal: Denies back pain, Reports neck pain, Denies numbness and Denies tingling Integumentary/Breasts Skin/Breast: Denies rash Neurologic Neurologic: Reports headache(s), Denies numbness, Denies tingling, Reports disequilibrium and Denies weakness Psychiatric Psychiatric: Reports anxiety Endocrine Endocrine: Denies fatigue [facility] Medical History Abnormal mammogram of left breast Anxiety Basal cell carcinoma nose, removed at [facility] derm December 2019 Diabetes GERD (gastroesophageal reflux disease) Saul's disease Hypertension KARMEN (obstructive sleep apnea) Paroxysmal A-fib Pelvic mass in female Surgical History Cholecystectomy H/O right wrist surgery S/P hysterectomy Family History Mother Heart disease NM at 47 Diabetes Hypertension Breast cancer Maternal Grandmother Heart disease NM @47 Diabetes Hypertension Breast cancer Maternal Aunt Heart disease sudden at 54 Maternal Grandfather Stroke Brother Stroke Social History Smoking/Tobacco Use Status: Former Tobacco Use Smoking risk assessment performed?: Yes Alcohol Intake: never Drug use: Never Substance use type: does not use Do you feel safe at home: Yes Do you feel safe in your relationship?: Yes Female Reproductive History Menstrual Menopause type: surgical (2016 s/p hyst) History History 3 Para 2 Hx # Term Pregnancies Multiple births Hx # Pregnancies Ectopic pregnancies AB induced Hx Number of Living Children AB spontaneous Exam Const General: cooperative, healthy appearing and no acute distress Orientation: alert, awake and oriented x3 HENMT Head: normal to inspection, normocephalic and atraumatic Ears: external ears normal, TM's normal bilaterally and EAC's normal General nose exam: external nose normal Face and sinus: normal facial exam Mouth: moist mucous membranes Throat: posterior oropharynx normal Eyes General: appearance normal, both eyes and all related structures Alignment and Position: alignment normal Periorbital: periorbital findings normal Eyelids: eyelids normal Conjunctivae: conjunctivae normal Sclera: sclerae normal Cornea: corneas normal Pupils: PERRL EOM: EOM intact bilaterally Direct ophthalmoscopy: normal light reflex Neck Neck: normal visual inspection, full ROM, no meningeal signs, trachea midline and supple Resp Effort & Inspection: normal respiratory effort and able to speak in complete sentences Auscultation: clear to auscultation bilaterally Cardio Rate: regular rate Rhythm: regular rhythm GI Inspection: obesity Palpation: soft, not firm, no guarding, no pulsatile masses and nontender Auscultation: normal bowel sounds Back/Spine/Pelvis Back: No back tenderness Skin General skin exam: no rashes or lesions noted Neuro General: patient alert, patient awake, patient oriented x3, moves all extremities and no focal motor deficits Cranial Nerves: CN's II-XI intact bilaterally Cognition: normal cognition Speech: speech normal Motor: muscle tone normal throughout, strength 5/5 throughout, no pronator drift, no movement abnormalities noted and no fasciculations Sensory Exam: no sensory deficits noted Coordination: Does not sway with eyes open Extrem General: normal to inspection, full ROM, capillary refill normal, no pedal edema and no calf tenderness Psych Appearance: grossly normal Mental Status: mental status grossly normal Course Vital Signs Vital signs: Vital Signs Pulse 76 06/23/21 07:48 Respiratory Rate 15 06/23/21 07:48 Blood Pressure 172/97 H 06/23/21 07:48 Pulse Oximetry 100 06/23/21 07:48 Temperature 36.3 C L 06/23/21 07:53 Temperature Source Skin 06/23/21 07:53 Pulse 60 06/23/21 09:00 Pulse 59 L 06/23/21 09:01 Respiratory Rate 17 06/23/21 09:01 Respiratory Effort Non-Labored 06/23/21 08:33 Respiratory Depth Normal 06/23/21 08:33 Respiratory Pattern Normal 06/23/21 08:33 Blood Pressure 162/94 H 06/23/21 09:00 Blood Pressure Mean 111 06/23/21 09:00 Blood Pressure Position Supine 06/23/21 07:53 Pulse Oximetry 95 06/23/21 09:01 Oxygen Delivery Method Room Air 06/23/21 07:53 Oxygen Flow Rate 0 06/23/21 07:53 Pain Level 1 06/23/21 07:53 Lab/Test Results Lab/Test Results: Laboratory Tests Range/Units 06/23/21 06/23/21 06/23/21 08:15 08:15 08:15 WBC (4.4-10.8) 10^3/uL 6.62 RBC (3.93-5.22) 10^6/uL 4.31 Hgb (11.2-15.7) g/dL 12.4 Hct (36.0-46.0) % 38.6 MCV (80-95) fL 89.6 MCH (27.0-33.0) pg 28.8 MCHC (32.0-36.0) % 32.1 RDW (11.7-14.6) % 13.2 Plt Count (130-400) 10^3/uL 258 MPV (8.0-11.0) fL 9.7 Immature Gran % 0.2 Neutrophils % 42.0 Lymphocytes % 42.1 Monocytes % 9.1 Eosinophils % 5.7 Basophils % 0.9 Nucleated RBC % % 0 Absolute Neutrophils (1.2-6.7) 10^3/uL 2.78 Absolute Lymphocytes (1.2-3.4) 10^3/uL 2.79 Absolute Monocytes (0.1-0.8) 10^3/uL 0.60 Absolute Eosinophils (0.0-0.7) 10^3/uL 0.38 Absolute Basophils (0.0-0.2) 10^3/uL 0.06 PT (9.3-11.0) sec INR (0.9-1.1) APTT (21.0-27.5) sec D-Dimer (<500) ng/mlFEU Sodium (136-145) mmol/L 142 Potassium (3.5-5.1) mmol/L 3.8 Chloride (98-107) mmol/L 105 Carbon Dioxide (21.0-32.0) mmol/L 29.7 Anion Gap (3-11) mmol/L 7.3 BUN (7-18) mg/dL 13 Creatinine (0.55-1.02) mg/dL 0.8 Estimated GFR/1.73 m2 (mL/min/1.73m2) >= 60.00 Glucose (74-106) mg/dL 120 H Calcium (8.5-10.1) mg/dL 8.9 Magnesium (1.8-2.4) mg/dL 2.2 Total Bilirubin (0.2-1.0) mg/dL 0.6 AST (15-37) U/L 15 ALT (14-59) U/L 27 Alkaline Phosphatase (46-116) U/L 101 Troponin I (<0.06) ng/mL < 0.05 Total Protein (6.4-8.2) g/dL 7.5 Albumin (3.4-5.0) g/dL 3.8 TSH (0.36-3.74) uIU/mL 1.80 Urine Color (Yellow) Urine Clarity (Clear) Urine pH (5-8) Ur Specific [place] (1.005-1.025) Urine Protein (Negative) mg/dL Urine Ketones (Negative) mg/dL Urine Blood (Negative) Urine Nitrite (Negative) Urine Bilirubin (Negative) Urine Urobilinogen (Up TO 0.2) EU/dL Ur Leukocyte Esterase (Negative) Urine Glucose (Negative) mg/dL Range/Units 06/23/21 06/23/21 08:15 08:25 WBC (4.4-10.8) 10^3/uL RBC (3.93-5.22) 10^6/uL Hgb (11.2-15.7) g/dL Hct (36.0-46.0) % MCV (80-95) fL MCH (27.0-33.0) pg MCHC (32.0-36.0) % RDW (11.7-14.6) % Plt Count (130-400) 10^3/uL MPV (8.0-11.0) fL Immature Gran % Neutrophils % Lymphocytes % Monocytes % Eosinophils % Basophils % Nucleated RBC % % Absolute Neutrophils (1.2-6.7) 10^3/uL Absolute Lymphocytes (1.2-3.4) 10^3/uL Absolute Monocytes (0.1-0.8) 10^3/uL Absolute Eosinophils (0.0-0.7) 10^3/uL Absolute Basophils (0.0-0.2) 10^3/uL PT (9.3-11.0) sec 9.9 INR (0.9-1.1) 1.0 APTT (21.0-27.5) sec 24.8 D-Dimer (<500) ng/mlFEU 433 Sodium (136-145) mmol/L Potassium (3.5-5.1) mmol/L Chloride (98-107) mmol/L Carbon Dioxide (21.0-32.0) mmol/L Anion Gap (3-11) mmol/L BUN (7-18) mg/dL Creatinine (0.55-1.02) mg/dL Estimated GFR/1.73 m2 (mL/min/1.73m2) Glucose (74-106) mg/dL Calcium (8.5-10.1) mg/dL Magnesium (1.8-2.4) mg/dL Total Bilirubin (0.2-1.0) mg/dL AST (15-37) U/L ALT (14-59) U/L Alkaline Phosphatase (46-116) U/L Troponin I (<0.06) ng/mL Total Protein (6.4-8.2) g/dL Albumin (3.4-5.0) g/dL TSH (0.36-3.74) uIU/mL Urine Color (Yellow) Yellow Urine Clarity (Clear) Clear Urine pH (5-8) 7.5 Ur Specific [place] (1.005-1.025) 1.015 Urine Protein (Negative) mg/dL Negative Urine Ketones (Negative) mg/dL Negative Urine Blood (Negative) Negative Urine Nitrite (Negative) Negative Urine Bilirubin (Negative) Negative Urine Urobilinogen (Up TO 0.2) EU/dL 0.2 Ur Leukocyte Esterase (Negative) Negative Urine Glucose (Negative) mg/dL Negative
[2021-06-23] MEDS: diphenhydrAMINE 50 MG/ML VIAL IVP (09:55)
[2021-06-23] MEDS: Omnipaque 350 MG/ML 100 ML BTL IJ (10:14)
[2021-06-23] MEDS: Normal Saline Flush 10 ML SYR IVP (10:15)
--- NOTE | 2021-06-23 10:27 | DI.VRAD_ITS ---
PROCEDURE INFORMATION: Exam: CT Angiography Head With Contrast, Arteriography Exam date and time: 06/23/2021 8:18 AM Age: 51 years old Clinical indication: Other: Flores/ near syncope, bilat neck pain TECHNIQUE: Imaging protocol: Computed tomography angiography of the head with contrast. Exam focused on the arteries. 3D rendering (Not supervised by radiologist): MIP and/or 3D reconstructed images were created by the technologist. Contrast material: OMNIPAQUE 350; Contrast volume: 85 ml; Contrast route: INTRAVENOUS (IV); COMPARISON: CT BRAIN NECK CTA 02/04/2021 10:51 PM FINDINGS: ANTERIOR CIRCULATION: Right internal carotid artery: Unremarkable. Intracranial segment is patent with no significant stenosis. No aneurysm. Right middle cerebral artery: Unremarkable. No occlusion or significant stenosis. No aneurysm. Right anterior cerebral artery: Unremarkable. No occlusion or significant stenosis. No aneurysm. Left internal carotid artery: Unremarkable. Intracranial segment is patent with no significant stenosis. No aneurysm. Left middle cerebral artery: Unremarkable. No occlusion or significant stenosis. No aneurysm. Left anterior cerebral artery: Unremarkable. No occlusion or significant stenosis. No aneurysm. POSTERIOR CIRCULATION: Right vertebral artery: Unremarkable. No occlusion or significant stenosis. No aneurysm. Left vertebral artery: Unremarkable. No occlusion or significant stenosis. No aneurysm. Basilar artery: Unremarkable. No occlusion or significant stenosis. No aneurysm. Right posterior cerebral artery: Unremarkable. No occlusion or significant stenosis. No aneurysm. Left posterior cerebral artery: Unremarkable. No occlusion or significant stenosis. No aneurysm. Brain: No definite mass, mass effect, or midline shift. No abnormal enhancement Cerebral ventricles: No ventriculomegaly. Bones/joints: Unremarkable. No acute fracture. Soft tissues: Unremarkable. Nonspecific submandibular lymph nodes bilaterally IMPRESSION: No large vessel stenosis or occlusion. PROCEDURE INFORMATION: Exam: CT Angiography Neck With Contrast Exam date and time: 06/23/2021 8:18 AM Age: 51 years old Clinical indication: Other: Flores/ near syncope, bilat neck pain TECHNIQUE: Imaging protocol: Computed tomography angiography of the neck with contrast. 3D rendering (Not supervised by radiologist): MIP and/or 3D reconstructed images were created by the technologist. Contrast material: OMNIPAQUE 350; Contrast volume: 85 ml; Contrast route: INTRAVENOUS (IV); COMPARISON: CT BRAIN NECK CTA 02/04/2021 10:51 PM FINDINGS: Right common carotid artery: No stenosis. No dissection or occlusion. Right internal carotid artery: No stenosis of the extracranial segment. No dissection or occlusion. Right external carotid artery: No occlusion or stenosis of the origin. Left common carotid artery: No stenosis. No dissection or occlusion. Left internal carotid artery: No stenosis of the extracranial segment. No dissection or occlusion. Left external carotid artery: No occlusion or stenosis of the origin. Right vertebral artery: No stenosis. No dissection or occlusion. Left vertebral artery: No stenosis. No dissection or occlusion. Soft tissues: Normal. No significant soft tissue swelling. Bones/joints: No acute fracture. IMPRESSION: No stenosis or occlusion. REFERENCES: NASCET CRITERIA. The degree of internal carotid artery stenosis is based on NASCET criteria. Normal is no stenosis. Mild is less than 50% stenosis. Moderate is 50-69% stenosis. Severe is 70% to 99% stenosis. Total occlusion is no detectable patent lumen. Dictated and Authenticated by: Chrystal Guerrero MD. Ordering:AMY Purcell MD
--- NOTE | 2021-06-23 10:29 | DI.VRAD_ITS ---
PROCEDURE INFORMATION: Exam: XR Chest Exam date and time: 06/23/2021 8:18 AM Age: 51 years old Clinical indication: Other: Near syncope TECHNIQUE: Imaging protocol: XR of the chest. Views: 2 views. COMPARISON: CT CHEST PE CTA 02/04/2021 11:10 PM FINDINGS: Lungs: Mild venous congestion Pleural spaces: Unremarkable. No pleural effusion. No pneumothorax. Heart/Mediastinum: Stable cardiomegaly Bones/joints: Unremarkable. IMPRESSION: No evidence of acute process radiographically Dictated and Authenticated by: Chrystal Guerrero MD. Ordering:AMY Purcell MD
[2021-06-23] MEDS: Ketorolac 30 MG/ML VIAL IVP (10:51)
[2021-06-23] MEDS: hydrALAZINE 20 MG/ML VIAL 10 MG IVP (12:30)
[2021-06-23] MEDS: Metoclopramide 10 MG/2 ML VIAL IVP (12:45)
[2021-06-23] MEDS: Normal Saline 50 ML 200 ML (12:45)
[2021-06-23 12:53] LABS: Troponin I < 0.05 ng/mL (<0.06)
[2021-06-23] MEDS: MAGNESIUM SULFATE 1 GM/100 ML BAG IVPB (13:00)
== END 2021-06-23 14:50 | disposition home or self-care (01) ==
PROVIDERS: Emergency Provider Physician Assistant; PCP Naturopath
DX: R55 Syncope and collapse (principal); R51.9 Headache, unspecified; I10 Essential (primary) hypertension; R42 Dizziness and giddiness
CPT/HCPCS: 36415; 70496; 70498; 80053; 93005; 96361; 96365; 96375; 99285; 71046; 81003; 83735; 84443; 84484; 85025; 85379; 85610; 85730; 93010; J0360; J1200; J1885; J2765; J3360; J3475; J3490

== ENCOUNTER 2021-07-07 18:25 | Outpatient (REF) | payer BC, SELFPAY ==
[2021-07-13 00:53] LABS: Cortisol, U 30 mcg/24 h (3.5-45); Urine Volume 2025 mL
== END 2021-07-07 18:26 | disposition home or self-care (01) ==
LOC: NCHCN 18:25
PROVIDERS: PCP Naturopath; Visit Provider Naturopath
DX: R59.0 Localized enlarged lymph nodes (principal); I10 Essential (primary) hypertension; R53.83 Other fatigue; E27.0 Other adrenocortical overactivity; R00.2 Palpitations
CPT/HCPCS: 81050; 82530; 83789

== ENCOUNTER 2021-07-09 02:15 | Outpatient (CLI) | payer BC, SELFPAY | END 2021-07-09 02:16 | disposition home or self-care (01) | LOC: LBO 02:15 | PROVIDERS: PCP Naturopath; Visit Provider Student in an Organized Health Care Education/Training Program | DX: E24.9 Cushing's syndrome, unspecified (principal) | CPT/HCPCS: 36415; 82533 ==

== ENCOUNTER 2021-10-15 02:27 | Outpatient (CLI) | payer BC, SELFPAY ==
--- NOTE | 2021-10-15 | DI.RAD_ITS ---
Exam(s) XR LUMBAR SPINE COMPLETE EXAM: XR LUMBAR SPINE COMPLETE CLINICAL HISTORY: BACK PAIN, ? DJD OR BONE SPURS. TECHNIQUE: 2D digital imaging was performed. COMPARISON: No exams were available for comparison FINDINGS: There is no evidence of fracture or listhesis nor pars defects. There is moderate disc space narrowi ng at L3-4 and L4-5 levels and mild disc space narrowing L5-S1 level. Other disc spaces above this l evel exhibit normal height. No osseous lesions. No scoliosis. Some facet degenerative changes are noted at the lower 2 levels. Sacroiliac joints appear unremarkable. Bone density is age-appropriate . IMPRESSION: Multilevel degenerative disc disease. DATA REPOSITORY: RADIATION DOSE DELIVERED:
--- NOTE | 2021-10-15 11:26 | DI.RAD_ITS ---
Exam(s) XR CERVICAL SPINE COMP 4-5V EXAM: XR CERVICAL SPINE COMP 4-5V CLINICAL HISTORY: NECK PAIN, ? DJD OR BONE SPURS. TECHNIQUE: 2D digital imaging was performed. COMPARISON: No exams were available for comparison FINDINGS: There is no evidence of fracture, listhesis, nor offset of the spinal laminar line. All of the disc spaces exhibit normal height although there is anterior osseous lipping at C5-6 level indicating iqugmiut ent of some degenerative disc disease at this level to and there are also small bilateral Luschka bharti nt osteophytes evident at this level. There are no cervical ribs. No obvious facet arthropathy. No osseous lesions. IMPRESSION: Subtle evidence of degenerative disc disease at C5-6 level, this despite preserved disc height at thi s level. DATA REPOSITORY: RADIATION DOSE DELIVERED:
== END 2021-10-15 02:47 ==
PROVIDERS: PCP Naturopath; Visit Provider Naturopath
DX: M54.2 Cervicalgia (principal); G44.209 Tension-type headache, unspecified, not intractable; G50.1 Atypical facial pain; M50.022 Cervical disc disorder at C5-C6 level with myelopathy; M51.36 Other intervertebral disc degeneration, lumbar region
CPT/HCPCS: 72050; 72110

== ENCOUNTER 2021-12-12 01:47 | Outpatient (CLI) | payer BC, SELFPAY ==
[2021-12-12 10:20] LABS: ALT 23 U/L (14-59); AST 13 U/L (15-37); Albumin 3.9 g/dL (3.4-5.0); Alkaline Phosphatase 122 U/L (46-116); Anion Gap 8.9 mmol/L (3-11); BUN 17 mg/dL (7-18); Bilirubin, Total 0.8 mg/dL (0.2-1.0); CO2 29.1 mmol/L (21.0-32.0); CREATININE 0.7 mg/dL (0.55-1.02); Chloride 103 mmol/L (98-107); Glucose 100 mg/dL (74-106); Potassium 4.5 mmol/L (3.5-5.1); Sodium 141 mmol/L (136-145); TSH 1.54 uIU/mL (0.36-3.74); Total Protein 7.4 g/dL (6.4-8.2)
[2021-12-12 10:38] LABS: FREE T4 0.92 ng/dL (0.76-1.46)
[2021-12-12 17:15] LABS: T3,Free 3.6 pg/mL (2.8-5.3)
[2021-12-12 18:18] LABS: Thyroperoxidase Antibody 149 U/mL (<=60)
[2021-12-13 09:45] LABS: CA 125 10 U/mL (<30)
[2021-12-13 15:58] LABS: Adrenocorticotropic Hormone, P 20 pg/mL
== END 2021-12-12 01:48 | disposition home or self-care (01) ==
LOC: LBO 01:48
PROVIDERS: PCP Naturopath; Visit Provider Naturopath
DX: E11.65 Type 2 diabetes mellitus with hyperglycemia (principal); I10 Essential (primary) hypertension; E55.9 Vitamin D deficiency, unspecified; N20.0 Calculus of kidney
CPT/HCPCS: 36415; 80053; 82533; 86304; 82024; 83036; 84439; 84443; 84481; 86376

== ENCOUNTER 2021-12-14 16:52 | Outpatient (REF) | payer BC, SELFPAY ==
[2021-12-18 23:50] LABS: Cortisol, Saliva <50 ng/dL
[2021-12-19 00:28] LABS: Cortisol, U 61 mcg/24 h (3.5-45); Urine Volume 3200 mL
== END 2021-12-14 16:53 | disposition home or self-care (01) ==
LOC: LBN 16:52
PROVIDERS: PCP Naturopath; Visit Provider Naturopath
DX: I10 Essential (primary) hypertension (principal); E11.65 Type 2 diabetes mellitus with hyperglycemia; E06.3 Autoimmune thyroiditis; E66.9 Obesity, unspecified; N39.3 Stress incontinence (female) (male); E55.9 Vitamin D deficiency, unspecified; I70.91 Generalized atherosclerosis
CPT/HCPCS: 81050; 82530; 83789

== ENCOUNTER 2022-01-05 17:00 | Outpatient (REF) | payer BC, SELFPAY ==
[2022-01-07 11:31] LABS: COVID-19 RT-PCR UVMMC Result Negative (Negative)
== END 2022-01-05 17:01 | disposition home or self-care (01) ==
LOC: LBN 17:00
PROVIDERS: PCP Naturopath; Visit Provider Nurse Practitioner Family
DX: R09.89 Other specified symptoms and signs involving the circulatory and respiratory systems (principal); Z20.822 Contact with and (suspected) exposure to COVID-19
CPT/HCPCS: U0003

== ENCOUNTER 2022-04-16 02:57 | Outpatient (CLI) | payer BC, SELFPAY ==
[2022-04-16 12:59] LABS: Abs Immature Grans 0.01 10^3/uL (0.0-0.06); Absolute Basophil Count 0.04 10^3/uL (0.0-0.2); Absolute Eosinophil Count 0.18 10^3/uL (0.0-0.7); Absolute Lymphocyte Count 2.99 10^3/uL (1.2-3.4); Absolute Monocyte Count 0.41 10^3/uL (0.1-0.8); Absolute Neutrophil Count 2.67 10^3/uL (1.2-6.7); Basophils % 0.6; Eosinophils % 2.9; HCT 39.8 % (36.0-46.0); HGB 13.1 g/dL (11.2-15.7); Immature Grans % 0.2; Lymphocytes % 47.5; MCH 29.7 pg (27.0-33.0); MCHC 32.9 % (32.0-36.0); MCV 90 fL (80-95); MPV 9.5 fL (8.0-11.0); Monocytes % 6.5; Neutrophils % 42.3; Platelet Count 293 10^3/uL (130-400); RBC 4.41 10^6/uL (3.93-5.22); RDW 13.2 % (11.7-14.6); RDW-SD 43.5 fL
[2022-04-16 13:08] LABS: Bilirubin Negative (Negative); Blood Negative (Negative); Clarity Clear (Clear); Glucose Negative (Negative); Ketones Negative (Negative); Leukocyte Esterase Negative (Negative); Nitrite Negative (Negative); Urobilinogen 0.2 EU/dL (Up TO 0.2)
== END 2022-04-16 02:58 | disposition home or self-care (01) ==
LOC: LOS 02:57
PROVIDERS: PCP Naturopath; Visit Provider Naturopath
DX: E11.65 Type 2 diabetes mellitus with hyperglycemia (principal); R42 Dizziness and giddiness; R39.15 Urgency of urination
CPT/HCPCS: 36415; 81003; 83036; 85025

== ENCOUNTER 2022-05-31 01:18 | Outpatient (CLI) | payer BC, SELFPAY ==
[2022-05-31 16:27] LABS: INR 0.9 (0.9-1.1); PTT Activated 26.4 sec (21.0-27.5); Prothrombin Time 9.3 sec (9.3-11.0)
[2022-05-31 16:35] LABS: ALT 24 U/L (14-59); AST 15 U/L (15-37); Albumin 3.9 g/dL (3.4-5.0); Alkaline Phosphatase 129 U/L (46-116); Anion Gap 9.9 mmol/L (3-11); BUN 21 mg/dL (7-18); Bilirubin, Total 0.4 mg/dL (0.2-1.0); CO2 28.1 mmol/L (21.0-32.0); CREATININE 0.8 mg/dL (0.55-1.02); Calcium 9.3 mg/dL (8.5-10.1); Chloride 106 mmol/L (98-107); Glucose 100 mg/dL (74-106); Sodium 144 mmol/L (136-145); Total Protein 7.8 g/dL (6.4-8.2)
[2022-06-03 19:09] LABS: Adrenocorticotropic Hormone, P 15 pg/mL
[2022-06-04 14:05] LABS: Phospholipid Ab, IgG <9.4 GPL; Phospholipid Ab, IgM 10.9 MPL
== END 2022-05-31 01:19 | disposition home or self-care (01) ==
LOC: LBO 01:18
PROVIDERS: Internal Medicine Endocrinology, Diabetes & Metabolism; PCP Naturopath; Visit Provider Naturopath
DX: R63.5 Abnormal weight gain (principal); E11.65 Type 2 diabetes mellitus with hyperglycemia; N39.3 Stress incontinence (female) (male); I10 Essential (primary) hypertension; E06.3 Autoimmune thyroiditis; R42 Dizziness and giddiness; R39.16 Straining to void; K42.9 Umbilical hernia without obstruction or gangrene; E66.9 Obesity, unspecified; G44.219 Episodic tension-type headache, not intractable; N20.0 Calculus of kidney; I70.91 Generalized atherosclerosis; E55.9 Vitamin D deficiency, unspecified; I48.3 Typical atrial flutter; D68.61 Antiphospholipid syndrome
CPT/HCPCS: 36415; 80053; 82533; 86147; 82024; 85610; 85730

== ENCOUNTER 2022-07-29 03:06 | Outpatient (CLI) | payer BC, SELFPAY ==
[2022-07-29 14:23] LABS: ALT 25 U/L (14-59); AST 15 U/L (15-37); Albumin 3.7 g/dL (3.4-5.0); Alkaline Phosphatase 120 U/L (46-116); Anion Gap 7.5 mmol/L (3-11); BUN 17 mg/dL (7-18); Bilirubin, Total 0.4 mg/dL (0.2-1.0); CO2 29.5 mmol/L (21.0-32.0); CREATININE 0.7 mg/dL (0.55-1.02); Calcium 9.2 mg/dL (8.5-10.1); Calculated LDL 123 mg/dL (<100); Chloride 103 mmol/L (98-107); Cholesterol 207 mg/dL (<200); Estimated GFR 104.65 (mL/min/1.73m2); Ferritin 206 ng/mL (8-252); Glucose 108 mg/dL (74-106); HDL Cholesterol 60 mg/dL (40-60); Sodium 140 mmol/L (136-145); TSH 2.95 uIU/mL (0.36-3.74); Total Protein 7.5 g/dL (6.4-8.2); Triglyceride 121 mg/dL (<150); Vitamin B12 384 pg/mL (193-986)
[2022-07-29 22:10] LABS: T3,Free 3.2 pg/mL (2.8-5.3)
[2022-07-29 23:02] LABS: FREE T4 0.83 ng/dL (0.76-1.46)
[2022-08-01 17:27] LABS: T3 (Triiodothyronine) Reverse 14 ng/dL (10-24)
== END 2022-07-29 03:07 | disposition home or self-care (01) ==
LOC: LBO 03:06
PROVIDERS: PCP Naturopath; Visit Provider Naturopath
DX: E55.9 Vitamin D deficiency, unspecified (principal); E06.3 Autoimmune thyroiditis; I10 Essential (primary) hypertension; E11.65 Type 2 diabetes mellitus with hyperglycemia; D50.9 Iron deficiency anemia, unspecified; I48.92 Unspecified atrial flutter; N39.3 Stress incontinence (female) (male); R42 Dizziness and giddiness; N20.0 Calculus of kidney; D53.9 Nutritional anemia, unspecified; N95.1 Menopausal and female climacteric states; E66.9 Obesity, unspecified
CPT/HCPCS: 36415; 80053; 80061; 82306; 82607; 82728; 84439; 84443; 84481; 84482

== ENCOUNTER 2022-09-07 19:36 | Outpatient (REF) | payer BC, SELFPAY ==
[2022-09-09 13:01] LABS: COVID-19 RT-PCR UVMMC Result Negative (Negative)
== END 2022-09-07 19:37 | disposition home or self-care (01) ==
LOC: LBN 19:36
PROVIDERS: PCP Naturopath; Visit Provider Physician Assistant Medical
DX: J02.9 Acute pharyngitis, unspecified (principal); Z20.822 Contact with and (suspected) exposure to COVID-19
CPT/HCPCS: U0003; 87081

== ENCOUNTER 2022-09-13 08:48 | Outpatient (REF) | payer BC, SELFPAY ==
[2022-09-13 10:11] LABS: Creatinine,24hr Ur 2.03 g/24hr (0.60-1.80); Creatinine,Urine 106.69 mg/dL; Total Volume 1950 ml
[2022-09-17 23:33] LABS: Cortisol, U 39 mcg/24 h (3.5-45); Urine Volume 1950 mL
== END 2022-09-13 08:49 | disposition home or self-care (01) ==
LOC: LBN 08:48
PROVIDERS: PCP Naturopath
DX: R63.5 Abnormal weight gain (principal)
CPT/HCPCS: 81050; 82530; 82570; 83789

== ENCOUNTER 2022-10-05 14:23 | Outpatient (REF) | payer BC, SELFPAY ==
[2022-10-05 15:10] LABS: Total Volume 2200 ml
[2022-10-10 00:24] LABS: Cortisol, U 46 mcg/24 h (3.5-45); Urine Volume 2200 mL
[2022-10-22 11:27] LABS: Urine Volume 2200
[2022-10-22 11:38] LABS: Iodine, 24 hr Urine 172 mcg/24 h
== END 2022-10-05 14:24 | disposition home or self-care (01) ==
LOC: LBN 14:23
PROVIDERS: Internal Medicine Endocrinology, Diabetes & Metabolism; PCP Naturopath; Visit Provider Naturopath
DX: E06.3 Autoimmune thyroiditis (principal); E11.65 Type 2 diabetes mellitus with hyperglycemia; N39.3 Stress incontinence (female) (male); G44.219 Episodic tension-type headache, not intractable; R42 Dizziness and giddiness; N20.0 Calculus of kidney; E55.9 Vitamin D deficiency, unspecified; E66.8 Other obesity; D50.9 Iron deficiency anemia, unspecified; I10 Essential (primary) hypertension; I70.91 Generalized atherosclerosis; I48.92 Unspecified atrial flutter
CPT/HCPCS: 81050; 82530; 82570; 83018; 83789

== ENCOUNTER 2023-02-17 01:46 | Outpatient (CLI) | payer BC, SELFPAY ==
--- NOTE | 2023-02-17 17:45 | DI.MAMMO_ITS ---
Exam(s) MAMMO SCREENING EXAM: MAMMO SCREENING CLINICAL HISTORY: screening. TECHNIQUE: Bilateral full field digital CC and MLO mammographic images were obtained with 3D tomosyn thesis and utilizing computer aided detection (CAD). COMPARISON: Prior mammograms were reviewed. FINDINGS: There has been no significant change in the appearance and distribution of the fibroglandular tissue. There are no CAD designations. There are no new spiculated masses nor malignant appearing microcalcification groups. There is no significant architectural distortion nor skin thickening-retraction. IMPRESSION: No radiographic evidence of malignancy. BI-RADS Category 1 - Negative Breast Density - Category B - Scattered areas of fibroglandular density Breast density Category C or D implies that the patient has dense breast tissue. Dense breast tissue can make it harder to find cancer on a mammogram. Dense breast tissue is also associated with an incr eased risk of breast cancer. This information about the result of the mammogram report was provided to the patient to raise their awareness. Use this report when you speak with the patient about their risks for breast cancer, which includes their family history. At that time, you may recommend additional screening tests (Ultrasoun d or MRI) as these tests may add significant information. A negative radiographic report should not delay biopsy if a dominant or clinically suspicious mass is present. Up to ten percent of cancers are not identified on mammography. A negative report may reinforce clinical impression. Adenosis and dense breasts may obscure an underlying neoplasm. False positive reports average 6 to 10%. Patient will receive a letter notifying them of these results.
== END 2023-02-17 02:06 ==
LOC: DI 01:48
PROVIDERS: PCP Naturopath; Visit Provider Nurse Practitioner Women's Health
DX: Z12.31 Encounter for screening mammogram for malignant neoplasm of breast (principal)
CPT/HCPCS: 77063; 77067

== ENCOUNTER 2023-02-27 02:55 | Outpatient (CLI) | payer BC, SELFPAY ==
[2023-02-27 07:43] LABS: Bilirubin Negative (Negative); Blood Negative (Negative); Clarity Clear (Clear); Glucose Negative (Negative); Ketones Negative (Negative); Leukocyte Esterase Negative (Negative); Nitrite Negative (Negative); Urobilinogen 0.2 mg/dL (Up to 0.2)
[2023-02-27 08:13] LABS: Hemoglobin A1C 5.8 % (<5.7)
[2023-02-27 08:28] LABS: ALT 26 U/L (14-59); AST 16 U/L (15-37); Albumin 3.7 g/dL (3.4-5.0); Alkaline Phosphatase 121 U/L (46-116); Anion Gap 7.8 mmol/L (3-11); BUN 13 mg/dL (7-18); Bilirubin, Total 0.6 mg/dL (0.2-1.0); CO2 27.2 mmol/L (21.0-32.0); CREATININE 0.7 mg/dL (0.55-1.02); Chloride 106 mmol/L (98-107); FREE T4 0.85 ng/dL (0.76-1.46); Glucose 113 mg/dL (74-106); Sodium 141 mmol/L (136-145); TSH 2.79 uIU/mL (0.36-3.74); Total Protein 7.6 g/dL (6.4-8.2)
[2023-02-27 08:54] LABS: Ferritin 215 ng/mL (8-252)
[2023-02-27 18:26] LABS: T3,Free 4.8 pg/mL (2.8-5.3)
[2023-02-27 19:05] LABS: Thyroperoxidase Antibody 187 U/mL (<=60)
[2023-03-03 09:45] LABS: Insulin 13.7 uIU/mL (<29.0)
[2023-03-05 12:16] LABS: 25-Hydroxy D Total 69 ng/mL; 25-Hydroxy D2 <4.0 ng/mL; 25-Hydroxy D3 69 ng/mL
== END 2023-02-27 02:56 | disposition home or self-care (01) ==
PROVIDERS: PCP Naturopath; Visit Provider Naturopath
DX: I10 Essential (primary) hypertension (principal); E06.3 Autoimmune thyroiditis; E66.9 Obesity, unspecified; I70.91 Generalized atherosclerosis; G44.219 Episodic tension-type headache, not intractable; E55.9 Vitamin D deficiency, unspecified; D50.9 Iron deficiency anemia, unspecified; E01.8 Other iodine-deficiency related thyroid disorders and allied conditions
CPT/HCPCS: 36415; 80053; 82306; 81003; 82728; 83036; 83525; 84439; 84443; 84481; 86376

== ENCOUNTER 2023-07-02 15:14 | Outpatient (CLI) | payer BC, SELFPAY ==
--- NOTE | 2023-07-02 14:45 | DI.RAD_ITS ---
Exam(s) XR KNEE RT 3V AP,LAT,CHINO EXAM: XR KNEE RT 3V AP,LAT,CHINO CLINICAL HISTORY: knee pain. TECHNIQUE: 2D digital imaging was performed. Three views. COMPARISON: None FINDINGS: BONES: No acute fracture is present. No bony destructive lesion is seen. JOINTS: Moderate narrowing of the medial femoral tibial joint space with periarticular spurring. Mil d varus angulation. Moderate to severe narrowing of the patellofemoral joint with prominent periarti cular spurring. No joint effusion is seen. SOFT TISSUE: Venous varicosities noted laterally. IMPRESSION: Moderate to severe degenerative changes. DATA REPOSITORY: RADIATION DOSE DELIVERED:
== END 2023-07-02 15:15 | disposition home or self-care (01) ==
LOC: DIORS 15:15
PROVIDERS: PCP Naturopath; Visit Provider Student in an Organized Health Care Education/Training Program
DX: M17.11 Unilateral primary osteoarthritis, right knee (principal)
CPT/HCPCS: 73562

== ENCOUNTER 2023-08-01 04:52 | Outpatient (CLI) | payer BC, SELFPAY ==
[2023-08-01 16:57] LABS: Abs Immature Grans 0.02 10^3/uL (0.0-0.06); Absolute Basophil Count 0.07 10^3/uL (0.0-0.2); Absolute Eosinophil Count 0.28 10^3/uL (0.0-0.7); Absolute Lymphocyte Count 4.04 10^3/uL (1.2-3.4); Absolute Monocyte Count 0.56 10^3/uL (0.1-0.8); Absolute Neutrophil Count 4.69 10^3/uL (1.2-6.7); Basophils % 0.7; Eosinophils % 2.9; HCT 39.7 % (36.0-46.0); HGB 13.1 g/dL (11.2-15.7); Immature Grans % 0.2; Lymphocytes % 41.8; MCH 29.4 pg (27.0-33.0); MCV 89 fL (80-95); MPV 8.9 fL (8.0-11.0); Monocytes % 5.8; Neutrophils % 48.6; Platelet Count 302 10^3/uL (130-400); RBC 4.46 10^6/uL (3.93-5.22); RDW 13.3 % (11.7-14.6); RDW-SD 43.8 fL; WBC 9.66 10^3/uL (4.4-10.8)
[2023-08-01 17:53] LABS: ALT 29 U/L (14-59); AST 18 U/L (15-37); Albumin 3.8 g/dL (3.4-5.0); Alkaline Phosphatase 118 U/L (46-116); Anion Gap 9.3 mmol/L (3-11); BUN 18 mg/dL (7-18); Bilirubin, Total 0.3 mg/dL (0.2-1.0); CO2 25.7 mmol/L (21.0-32.0); CREATININE 0.8 mg/dL (0.55-1.02); Calcium 9.1 mg/dL (8.5-10.1); Chloride 104 mmol/L (98-107); Glucose 90 mg/dL (74-106); Potassium 4.1 mmol/L (3.5-5.1); Sodium 139 mmol/L (136-145); Total Protein 7.7 g/dL (6.4-8.2)
[2023-08-02 14:19] LABS: Vitamin B12 476 pg/mL (193-986)
[2023-08-05 12:55] LABS: Bartonella PCR Negative; Specimen Source BLOOD
[2023-08-05 16:55] LABS: Anaplasma phagocytophilum Negative (Negative); B. miyamotoi PCR Negative (Negative); Babesia divergens/MO-1 Negative (Negative); Babesia duncani Negative (Negative); Babesia microti Negative (Negative); Ehrlichia chaffeensis Negative (Negative); Ehrlichia ewingii/canis Negative (Negative); Ehrlichia muris eauclairensis Negative (Negative)
== END 2023-08-01 04:53 | disposition home or self-care (01) ==
PROVIDERS: PCP Naturopath; Visit Provider Naturopath
DX: R42 Dizziness and giddiness (principal); D50.9 Iron deficiency anemia, unspecified; E06.3 Autoimmune thyroiditis; I10 Essential (primary) hypertension; N95.1 Menopausal and female climacteric states; N39.3 Stress incontinence (female) (male); K42.9 Umbilical hernia without obstruction or gangrene; N20.0 Calculus of kidney
CPT/HCPCS: 36415; 80053; 87798; 87801; 82607; 83036; 85025

== ENCOUNTER 2023-11-20 20:10 | Emergency (ER) | payer BC, SELFPAY ==
[2023-11-20] VITALS (20 sets, daily range): BP systolic 152–182; BP diastolic 66–92; PULSE 72–97; RESP 11–25; TEMP 36.6; O2SAT 91–99
--- NOTE | 2023-11-20 20:00 | RT.EKG_ITS ---
APPROVED REPORT Exam: Resting ECG Reason for Exam: chest pain Patient Location: E HR:85 bpm ECG Measurements Heart Rate 85 AXIS NE 164 P 53 QRSd 95 QRS -10 QT 366 T 29 QTc 435 Conclusion Sinus rhythm...normal P axis, V-rate 60- 99
[2023-11-20] MEDS: ACETAMINOPHEN 1,000 MG/100 ML BTL 400 MG IVPB (21:04)
[2023-11-20] MEDS: Famotidine 20 MG/2 ML VIAL IVP (21:04)
[2023-11-20 21:05] LABS: Abs Immature Grans 0.06 10^3/uL (0.0-0.06); Absolute Basophil Count 0.01 10^3/uL (0.0-0.2); Absolute Lymphocyte Count 0.69 10^3/uL (1.2-3.4); Absolute Monocyte Count 0.29 10^3/uL (0.1-0.8); Absolute Neutrophil Count 8.71 10^3/uL (1.2-6.7); Basophils % 0.1; HCT 39.9 % (36.0-46.0); HGB 13.2 g/dL (11.2-15.7); Immature Grans % 0.6; Lymphocytes % 7.1; MCH 28.8 pg (27.0-33.0); MCHC 33.1 % (32.0-36.0); MCV 87 fL (80-95); MPV 9.3 fL (8.0-11.0); Neutrophils % 89.2; Platelet Count 299 10^3/uL (130-400); RBC 4.58 10^6/uL (3.93-5.22); RDW 13.3 % (11.7-14.6); RDW-SD 42.4 fL; WBC 9.76 10^3/uL (4.4-10.8)
[2023-11-20] MEDS: Prochlorperazine 10 MG/2 ML VIAL 5 MG IVP (21:05)
[2023-11-20] MEDS: Lactated Ringers 1,000 ML 1000 ML IV (21:05)
--- NOTE | 2023-11-20 21:17 | ED.GENADUL_ITS ---
HPI General Date/Time Provider Initiated Documentation: 11/20/23 20:12 . HPI Narrative: 63-year-old female presents with chest pain, nausea, vomiting, diarrhea. Patient reportedly started feeling ill around 530 this evening. was sick with similar symptoms on Friday reportedly. Denies known spoiled food exposure States she has vomited between 10 and 12 times and the chest pain started after vomiting. She denies any fever or chills. She denies any shortness of breath. She denies any blood in her vomitus. She has had similar episodes of diarrhea, denies any significant abdominal pain. Denies cough or upper respiratory symptoms. Denies history of diabetes. Related Data Home Medications Medication Instructions Recorded Confirmed cholecalciferol (vitamin D3) 250 10,000 unit PO DAILY 01/27/19 11/20/23 mcg (10,000 unit) tablet magnesium glycinate 100 mg tablet 200 mg PO BID 01/27/19 11/20/23 vitamin K2 40 mcg tablet 40 mcg PO DAILY 01/27/19 11/20/23 potassium 99 mg tablet 198 mg PO DAILY 04/20/21 11/20/23 losartan 50 mg tablet 100 mg PO DAILY 04/26/21 11/20/23 spironolactone 50 mg tablet 50 mg PO DAILY 08/16/21 11/20/23 naltrexone 4.5 mg capsule (Naltrex) mg PO 06/02/23 07/02/23 prochlorperazine maleate 10 mg 10 mg PO TID PRN #10 tabs 11/20/23 tablet (Compazine) Previous Rx's Medication Instructions Recorded prochlorperazine maleate 10 mg 10 mg PO TID PRN #10 tabs 11/20/23 tablet (Compazine) Allergies Allergy/AdvReac Type Severity Reaction Status Date / Time sulfamethoxazole Allergy Severe Anaphylaxsi Unverified 11/20/23 20:17 [From Bactrim] s ciprofloxacin [From Cipro] Allergy Mild Unverified 11/20/23 20:17 amiloride Allergy Unknown Unverified 11/20/23 20:17 buspirone Allergy Unknown Unverified 11/20/23 20:17 lisinopril Allergy Unknown Unverified 11/20/23 20:17 contrast dye Allergy Intermediate nasal Uncoded 11/20/23 20:17 congestion / facial flushing and rash dairy Allergy Uncoded 11/20/23 20:17 eggs Allergy Uncoded 11/20/23 20:17 General Stated Complaint: Chest Pain RADHA: 3 Course Vital Signs Vital signs: Vital Signs Pulse 97 H 11/20/23 20:13 Respiratory Rate 18 11/20/23 20:13 Pulse Oximetry 99 11/20/23 20:13 Temperature 36.6 C 11/20/23 20:18 Temperature Source Skin 11/20/23 20:18 Pulse 89 11/20/23 20:18 Respiratory Rate 20 11/20/23 20:19 Respiratory Effort Normal 11/20/23 20:19 Respiratory Depth Normal 11/20/23 20:19 Respiratory Pattern Normal 11/20/23 20:19 Blood Pressure 182/92 H 11/20/23 20:18 Pulse Oximetry 99 11/20/23 20:18 Oxygen Delivery Method Room Air 11/20/23 20:18 Oxygen Flow Rate 0 11/20/23 20:18 Lab/Test Results Lab/Test Results: Laboratory Tests Range/Units 11/20/23 20:50 WBC (4.4-10.8) 10^3/uL 9.76 RBC (3.93-5.22) 10^6/uL 4.58 Hgb (11.2-15.7) g/dL 13.2 Hct (36.0-46.0) % 39.9 MCV (80-95) fL 87 MCH (27.0-33.0) pg 28.8 MCHC (32.0-36.0) % 33.1 RDW (11.7-14.6) % 13.3 Plt Count (130-400) 10^3/uL 299 MPV (8.0-11.0) fL 9.3 Immature Gran % 0.6 Neutrophils % 89.2 Lymphocytes % 7.1 Monocytes % 3.0 Eosinophils % 0.0 Basophils % 0.1 Nucleated RBC % (0.0-0.3) % 0.0 Absolute Neutrophils (1.2-6.7) 10^3/uL 8.71 H Absolute Lymphocytes (1.2-3.4) 10^3/uL 0.69 L Absolute Monocytes (0.1-0.8) 10^3/uL 0.29 Absolute Eosinophils (0.0-0.7) 10^3/uL 0.00 Absolute Basophils (0.0-0.2) 10^3/uL 0.01 Medical Decision Making 53-year-old female presenting with nausea, vomiting, diarrhea Has been vomiting for the past several hours, petechia noted around patient's eyes Abdomen nontender, EKG without evidence of ischemia or injury Troponin negative Diagnostic labs reassuring, mild hyperglycemia, 136 Patient is feeling improvement in symptoms, she is able to tolerate p.o., she is requesting discharge home She is given Compazine and Zofran as needed I suspect she has gastrointestinal illness given nausea vomiting and diarrhea She is encouraged to take Pepcid as needed for abdominal pain and bland diet as tolerated Return precautions reviewed and patient expressed understanding, nontender abdominal exam, moist mucous membranes, pupils equal round reactive to light and accommodation, no rebound or guarding appreciated Quality:SDOH Health Related Social Needs: No Data to Display PFSH All Active Problems (Updated 11/20/23 @ 22:40 by CARLOS Enciso) Nausea & vomiting (Acute) Derangement of posterior horn of medial meniscus due to old tear or injury, right knee (Acute) Osteoarthritis of right knee (Acute) Contusion of right knee (Acute) Otalgia, left ear (Acute) Diastasis of rectus abdominis (Acute) Foot pain, bilateral (Acute) Cervicalgia (Acute) Otalgia, right ear (Acute) Osteoporosis (Chronic) Heart murmur (Acute) Arthritis (Acute) Near syncope (Acute) Cephalgia (Acute) Dizziness (Acute) Hypertension (Chronic) Dizziness (Acute) Arm pain, left (Acute) Kidney stone on left side (Acute) Adnexal mass (Acute) Adnexal mass (Acute) Primary osteoarthritis of left knee (Acute) Synvisc injection: 01/01/2021 Basal cell carcinoma (Acute) nose, removed at [facility] derm December 2019 Saul's disease (Acute) Atypical chest pain (Acute) DVT prophylaxis (Acute) Obesity (Chronic) Anxiety (Chronic) Diet-controlled type 2 diabetes mellitus (Chronic) KARMEN (obstructive sleep apnea) (Chronic) Hypertensive urgency (Acute) Headache (Acute) Family history of early CAD (Acute) Internal derangement of right knee (Acute) Benign hypertension (Acute 05/24/13) Obesity (Acute 05/24/13) Medical History Anxiety Diabetes GERD (gastroesophageal reflux disease) Hypertension KARMEN (obstructive sleep apnea) Otalgia of both ears Paroxysmal A-fib Surgical History Cholecystectomy H/O right wrist surgery Hx of colonoscopy Hx of salpingo-oophorectomy, bilateral S/P hysterectomy Partial 2016 Finished hysterectomy 05/2021 Family History Mother Heart disease RI at 47 Diabetes Hypertension Breast cancer Anxiety Congestive heart failure Cataracts, bilateral Myocardial infarction Osteoporosis Arthritis GERD (gastroesophageal reflux disease) Maternal Grandmother Heart disease RI @47 Diabetes Hypertension Breast cancer Arthritis Cancer Congestive heart failure Myocardial infarction Osteoporosis Maternal Aunt Heart disease sudden at 54 Maternal Grandfather Stroke Brother Stroke Father Substance abuse Social History Smoking/Tobacco Use Status: Former Tobacco Use Smoking risk assessment performed?: Yes Alcohol Intake: current Alcohol Intake frequency: holidays/special occasions only Drug use: Never Substance use type: does not use Pets and animals: Yes (3 cats, 1 dog ) Pets and animals: cat(s) and dog(s) Current gender identity: female Do you feel safe at home: Yes Do you feel safe in your relationship?: Yes Female Reproductive History Menstrual Menopause type: surgical History History 3 Para 2 Hx # Term Pregnancies Multiple births Hx # Pregnancies Ectopic pregnancies AB induced Hx Number of Living Children AB spontaneous Discharge Plan Disposition Patient Disposition: Home Discharge Details Clinical Impression: Nausea & vomiting Primary Care Provider: Devi Reyes ED Provider: Zenobia Bridges [facility] Meds and New Rx's Prescriptions: New prochlorperazine maleate [Compazine] 10 mg tablet 10 mg PO TID PRNQty: 10 0RF Continued Naltrex 4.5 mg capsule PO losartan 50 mg tablet 100 mg PO DAILY Patient Comments: pt states she can only tolerate 50mg qd spironolactone 50 mg tablet 50 mg PO DAILY vitamin K2 40 mcg Tablet 40 mcg PO DAILY magnesium glycinate 100 mg Tablet 200 mg PO BID cholecalciferol (vitamin D3) 10,000 unit Tablet 10,000 unit PO DAILY potassium 99 mg Tablet 198 mg PO DAILY Discharge Instructions Instructions: Acute Nausea and Vomiting (ED) Additional Instructions: Regular fluids as tolerated, bland diet if you are able to regularly tolerate fluids, toast, applesauce Take Zofran as needed for nausea and vomiting, if you are persistently nauseous you may try taking the Compazine Return earlier should you have new or worsening complaints Referrals: Devi Reyes [Primary Care Provider] -
[2023-11-20 21:18] LABS: ALT 33 U/L (14-59); AST 23 U/L (15-37); Albumin 3.7 g/dL (3.4-5.0); Alkaline Phosphatase 100 U/L (46-116); Anion Gap 10.9 mmol/L (3-11); BUN 12 mg/dL (7-18); Bilirubin, Total 0.7 mg/dL (0.2-1.0); CO2 26.1 mmol/L (21.0-32.0); CREATININE 0.7 mg/dL (0.55-1.02); Calcium 9.2 mg/dL (8.5-10.1); Chloride 103 mmol/L (98-107); Glucose 136 mg/dL (74-106); Lipase 27 U/L (16-77); Magnesium 1.8 mg/dL (1.8-2.4); Potassium 3.5 mmol/L (3.5-5.1); Sodium 140 mmol/L (136-145); Total Protein 7.5 g/dL (6.4-8.2)
[2023-11-20 21:23] LABS: Troponin I < 50 ng/L (< or =60)
[2023-11-20 21:42] LABS: COVID-19 PCR Negative (Negative); Influenza A PCR Negative (Negative); Influenza B PCR Negative (Negative); RSV PCR Negative (Negative)
[2023-11-20 21:44] LABS: Source Nasopharynx
[2023-11-20] MEDS: Prochlorperazine 10 MG TAB PO (22:51)
== END 2023-11-20 22:54 | disposition home or self-care (01) ==
PROVIDERS: Emergency Provider Physician Assistant; PCP Naturopath
DX: R19.7 Diarrhea, unspecified (principal); R07.9 Chest pain, unspecified; R06.02 Shortness of breath; Z11.52 Encounter for screening for COVID-19; Z87.891 Personal history of nicotine dependence; I48.0 Paroxysmal atrial fibrillation
CPT/HCPCS: 80053; 83690; 87637; 93005; 96361; 96374; 96375; 99284; 83735; 84484; 85025; 93010; 99283; J0131; J0780

== ENCOUNTER 2023-11-26 02:35 | Outpatient (CLI) | payer BC, SELFPAY ==
[2023-11-28 15:26] LABS: Cyclic Citrullinated Peptide <2.5 U/mL (<5.0)
[2023-11-28 15:28] LABS: Sm (Smith) Ab, IgG <8.0 CU (<20.0); dsDNA Ab, IgG <22.0 IU/mL (<27.0)
[2023-11-28 15:39] LABS: ANA Interpretation Negative (Negative)
[2023-11-28 17:37] LABS: Rheumatoid Factor <8.6 IU/mL (<12.0)
[2023-12-02 17:27] LABS: Thiamine (Vitamin B1), WB 102 nmol/L (70-180)
== END 2023-11-26 02:36 | disposition home or self-care (01) ==
PROVIDERS: PCP Naturopath; Visit Provider Naturopath
DX: R42 Dizziness and giddiness (principal); E11.65 Type 2 diabetes mellitus with hyperglycemia; I48.92 Unspecified atrial flutter; M15.1 Heberden's nodes (with arthropathy); E06.3 Autoimmune thyroiditis; I10 Essential (primary) hypertension; N95.1 Menopausal and female climacteric states
CPT/HCPCS: 36415; 86200; 84425; 86038; 86225; 86235; 86431

== ENCOUNTER 2024-03-03 05:09 | Outpatient (CLI) | payer BC, SELFPAY ==
[2024-03-03 16:32] LABS: Kit/Specimen SENT
[2024-03-03 17:10] LABS: Hemoglobin A1C 5.9 % (<5.7)
[2024-03-03 19:28] LABS: ALT 26 U/L (14-59); AST 16 U/L (15-37); Albumin 4.2 g/dL (3.4-5.0); Alkaline Phosphatase 108 U/L (46-116); Anion Gap 10.7 mmol/L (3-11); BUN 21 mg/dL (7-18); Bilirubin, Total 0.7 mg/dL (0.2-1.0); CO2 25.3 mmol/L (21.0-32.0); CREATININE 0.9 mg/dL (0.55-1.02); Calcium 9.4 mg/dL (8.5-10.1); Calculated LDL 150 mg/dL (<100); Chloride 102 mmol/L (98-107); Cholesterol 235 mg/dL (<200); Estimated GFR 76.44 (mL/min/1.73m2); Glucose 86 mg/dL (74-106); HDL Cholesterol 77 mg/dL (40-60); Potassium 4.3 mmol/L (3.5-5.1); Sodium 138 mmol/L (136-145); Total Protein 7.3 g/dL (6.4-8.2); Triglyceride 42 mg/dL (<150); Vitamin B12 525 pg/mL (193-986)
[2024-03-05 10:37] LABS: Insulin 7.2 uIU/mL (<29.0)
== END 2024-03-03 05:10 | disposition home or self-care (01) ==
LOC: LBO 05:09
PROVIDERS: PCP Naturopath; Visit Provider Naturopath
DX: E11.65 Type 2 diabetes mellitus with hyperglycemia (principal); E66.9 Obesity, unspecified; E06.3 Autoimmune thyroiditis; I10 Essential (primary) hypertension; G44.219 Episodic tension-type headache, not intractable
CPT/HCPCS: 36415; 80053; 80061; 82607; 83036; 83525

== ENCOUNTER 2024-04-08 18:57 | Outpatient (REF) | payer BC, SELFPAY ==
[2024-04-08 21:10] LABS: Bacteria Negative HPF (Negative); C & S Indicated? C&S Done As Ordered; Casts Negative LPF (Negative); Crystals Negative HPF (Negative); Epithelial Cells Few HPF (Negative); Mucus Trace (Negative); RBC 0-2 HPF (0-2); WBC 0-2 HPF (0-5)
== END 2024-04-08 18:58 | disposition home or self-care (01) ==
LOC: LBN 18:57
PROVIDERS: PCP Naturopath; Visit Provider Physician Assistant Medical
DX: R30.0 Dysuria (principal)
CPT/HCPCS: 81015; 87086

== ENCOUNTER 2024-06-07 21:11 | Outpatient (REF) | payer BC, SELFPAY ==
[2024-06-07 13:07] LABS: Creatinine,Urine 95.72 mg/dL
[2024-06-07 13:09] LABS: Creatinine,24hr Ur 1.82 g/24hr (0.60-1.80); Total Volume 1925 ml
[2024-06-11 23:27] LABS: Cortisol, U 48 mcg/24 h (3.5-45); Urine Volume 1925 mL
== END 2024-06-07 21:12 | disposition home or self-care (01) ==
LOC: LBN 21:11
PROVIDERS: PCP Naturopath; Visit Provider Internal Medicine Endocrinology, Diabetes & Metabolism
DX: R82.998 Other abnormal findings in urine (principal)
CPT/HCPCS: 81050; 82530; 82570; 83789

== ENCOUNTER 2024-07-05 21:09 | Emergency (ER) | payer BC, SELFPAY ==
[2024-07-05] VITALS (21 sets, daily range): BP systolic 134–151; BP diastolic 51–74; PULSE 60–69; RESP 14–22; TEMP 36.4; O2SAT 96–98
--- NOTE | 2024-07-05 21:15 | RT.EKG_ITS ---
APPROVED REPORT Exam: Resting ECG Reason for Exam: Chest Pain Patient Location: E HR:63 bpm ECG Measurements Heart Rate 63 AXIS NC 201 P 50 QRSd 107 QRS 0 QT 413 T 10 QTc 423 Conclusion Sinus rhythm 63 normal axis no stemi
[2024-07-05 21:58] LABS: Abs Immature Grans 0.02 10^3/uL (0.0-0.06); Absolute Basophil Count 0.06 10^3/uL (0.0-0.2); Absolute Eosinophil Count 0.32 10^3/uL (0.0-0.7); Absolute Neutrophil Count 3.76 10^3/uL (1.2-6.7); Basophils % 0.7 %; Eosinophils % 3.5 %; HCT 38.3 % (36.0-46.0); HGB 12.6 g/dL (11.2-15.7); Immature Grans % 0.2 %; Lymphocytes % 46.4 %; MCH 29.9 pg (27.0-33.0); MCHC 32.9 % (32.0-36.0); MCV 91 fL (80-95); MPV 9.7 fL (8.0-11.0); Monocytes % 7.7 %; Neutrophils % 41.5 %; Platelet Count 284 10^3/uL (130-400); RBC 4.22 10^6/uL (3.93-5.22); RDW 13.1 % (11.7-14.6); RDW-SD 43.4 fL; WBC 9.06 10^3/uL (4.4-10.8)
--- NOTE | 2024-07-05 22:08 | DI.RAD_ITS ---
Exam(s) XR CHEST 2V PA LATERAL EXAM: XR CHEST 2V PA LATERAL CLINICAL HISTORY: chest pain. TECHNIQUE: 2D digital imaging was performed. COMPARISON: CR,XR XR CHEST 2V PA LATERAL from 06/23/2021 FINDINGS: 2 views: Heart size is normal. The mediastinum is not widened. Lungs are clear. No infiltrates nor pleural effusions. IMPRESSION: No acute pulmonary findings. DATA REPOSITORY: RADIATION DOSE DELIVERED:
[2024-07-05] MEDS: Famotidine 20 MG/2 ML VIAL IVP (22:32)
[2024-07-05 22:55] LABS: ALT 27 U/L (14-59); AST 15 U/L (15-37); Albumin 3.6 g/dL (3.4-5.0); Alkaline Phosphatase 108 U/L (46-116); Anion Gap 8.1 mmol/L (3-11); BUN 18 mg/dL (7-18); Bilirubin, Total 0.28 mg/dL (0.2-1.0); CO2 27.9 mmol/L (21.0-32.0); CREATININE 0.9 mg/dL (0.55-1.02); Calcium 9.4 mg/dL (8.5-10.1); Chloride 98 mmol/L (98-107); Estimated GFR 76.44 (mL/min/1.73m2); Glucose 117 mg/dL (74-106); Lipase 73 U/L (16-77); Potassium 3.7 mmol/L (3.5-5.1); Sodium 134 mmol/L (136-145); Total Protein 7.2 g/dL (6.4-8.2); Troponin I 5 ng/L (<or=51)
[2024-07-05 23:05] LABS: Troponin I 6 ng/L (<or=51)
--- NOTE | 2024-07-05 23:21 | DI.VRAD_ITS ---
PROCEDURE INFORMATION: Exam: XR Chest Exam date and time: 07/05/2024 10:05 PM Age: 54 years old Clinical indication: Chest pressure; Patient HX: Chest pain TECHNIQUE: Imaging protocol: Radiologic exam of the chest. Views: 2 views. COMPARISON: CR XR CHEST 2V PA LATERAL 06/23/2021 10:14 AM FINDINGS: Lungs: Unremarkable. No consolidation. Pleural spaces: Unremarkable. No pleural effusion. No pneumothorax. Heart/Mediastinum: Unremarkable. No cardiomegaly. Bones/joints: Unremarkable. IMPRESSION: Normal chest x-ray. Dictated and Authenticated by: Troy Alarcon MD. Ordering:GOOD Fregoso MD
[2024-07-05] MEDS: Mylanta Suspension 30 ML CUP PO (23:26)
--- NOTE | 2024-07-05 23:28 | W.ED.GENAD ---
Discharge Plan Disposition Patient Disposition: Home Condition: Stable Discharge Details Clinical Impression: Atypical chest pain Primary Care Provider: Devi Reyes ED Provider: Zenobia Bridges Home Meds and New Rx's Prescriptions: Continued Naltrex 4.5 mg capsule 4.5 mg PO DAILY losartan 50 mg tablet 100 mg PO DAILY Patient Comments: pt states she can only tolerate 50mg qd spironolactone 50 mg tablet 50 mg PO DAILY vitamin K2 40 mcg Tablet 40 mcg PO DAILY magnesium glycinate 100 mg Tablet 200 mg PO BID cholecalciferol (vitamin D3) 10,000 unit Tablet 10,000 unit PO DAILY potassium 99 mg Tablet 198 mg PO DAILY No Action losartan 100 mg tablet 100 mg PO DAILY Patient Comments: TAKE ONE TABLET BY MOUTH EVERY MORNING (DME) [employer] G7 Sensor Device MISCELLANEOUS Patient Comments: USE EVERY 10 DAYS DIRECTED cyclobenzaprine 5 mg tablet 5 mg PO QHS PRNQty: 7 0RF lidocaine [Lidoderm] 5 % adhesive patch,medicated 1 patch topical DAILY Qty: 15 0RF Rx Instructions: leave on most painful area for up to 12 hrs Discharge Instructions Instructions: Chest Pain, Adult ED Additional Instructions: Recommend Pepcid daily as needed for indigestion Follow up with primary care physician tomorrow, follow-up with Dr. Hopper, you may benefit from a repeat stress test within the next week Your tests today are reassuring, you have 2 negative troponin levels with a reassuring EKG, chest x-ray that does not show evidence of acute abnormality Please return should develop new or worsening complaints Referrals: Devi Reyes [Primary Care Provider] - 2 days Yung Hopper [ [facility] STAFF PHYSICIAN] - 1 day Discharge Data Discharge Date/Time-TO BE ENTERED AT DEPARTURE: 07/05/24 23:35 HPI General Date/Time Provider Initiated Documentation: 07/05/24 21:28. HPI Narrative: 54-year-old female presents with report of chest pain that started approximately an hour prior to arrival. States it started in her jaw radiated up to her chin and into her back. Denies any fever or chills. Denies any calf pain or swelling. Denies any nausea, vomiting, diarrhea. Denies any diaphoresis. Family history of coronary artery disease, family members were tobacco users, all below the age of 60. Patient does not smoke tobacco, drink alcohol, or use any illicit drugs. Denies any calf pain or swelling, recent flights, surgeries, long drives. He has had several negative stress test in the outpatient setting per patient. She thinks several years ago. States she was at rest when the symptoms began denies any exertional component to her symptoms. States she ambulates frequently at work and has not felt shortness of breath with any sort of exertion or develop chest pain. Related Data Home Medications ?Medication ?Instructions ?Recorded ?Confirmed cholecalciferol (vitamin D3) 250 10,000 unit PO DAILY 01/27/19 07/06/24 mcg (10,000 unit) tablet magnesium glycinate 100 mg (as 200 mg PO BID 01/27/19 07/06/24 glycinate) tablet vitamin K2 40 mcg tablet 40 mcg PO DAILY 01/27/19 07/06/24 potassium 99 mg tablet 198 mg PO DAILY 04/20/21 07/06/24 losartan 50 mg tablet 100 mg PO DAILY 04/26/21 07/06/24 spironolactone 50 mg tablet 50 mg PO DAILY 08/16/21 07/06/24 naltrexone 4.5 mg capsule (Naltrex) 4.5 mg PO DAILY 06/02/23 07/06/24 blood-glucose sensor (Dexcom G7 07/06/24 07/06/24 Sensor device) cyclobenzaprine 5 mg tablet 5 mg PO QHS PRN #7 tabs 07/06/24 lidocaine 5 % topical patch 1 patch topical DAILY #15 ea 07/06/24 (Lidoderm) losartan 100 mg tablet 100 mg PO DAILY 07/06/24 07/06/24 Previous Rx's ?Medication ?Instructions ?Recorded cyclobenzaprine 5 mg tablet 5 mg PO QHS PRN #7 tabs 07/06/24 lidocaine 5 % topical patch 1 patch topical DAILY #15 ea 07/06/24 (Lidoderm) Allergies Allergy/AdvReac Type Severity Reaction Status Date / Time sulfamethoxazole (From Allergy Severe Anaphylaxsi Verified 07/06/24 14:06 Bactrim) s ciprofloxacin (From Cipro) Allergy Mild Anaphylaxis Verified 07/06/24 14:06 amiloride Allergy Unknown Unknown Verified 07/06/24 14:06 buspirone Allergy Unknown Unknown Verified 07/06/24 14:06 lisinopril Allergy Unknown Unknown Verified 07/06/24 14:06 contrast dye Allergy Intermediate nasal Uncoded 07/06/24 14:06 congestion / facial flushing and rash General Stated Complaint: Chest Pain RADHA: 3 Exam Narrative Exam Narrative: Alert, oriented female in no acute distress, mildly reproducible tenderness in the anterior chest wall and left upper quadrant, no rebound or guarding, cardiac rate rhythm regular, no murmurs or rubs, lungs clear to auscultation, no significant abdominal discomfort, no CVA tenderness, alert and oriented x 4, distal pulses intact all 4 extremities, no abdominal bruit or pulsatile mass. Course Vital Signs Vital signs: Vital Signs Pulse 65 07/05/24 21:18 Respiratory Rate 18 07/05/24 21:18 Blood Pressure 151/72 H 07/05/24 21:18 Pulse Oximetry 96 07/05/24 21:18 Pulse 67 07/05/24 21:46 Pulse 64 07/05/24 23:10 Respiratory Rate 21 07/05/24 23:20 Respiratory Effort Normal, Non-Labored 07/05/24 21:24 Respiratory Depth Normal 07/05/24 21:24 Respiratory Pattern Normal 07/05/24 21:24 Blood Pressure 142/51 H 07/05/24 21:46 Blood Pressure Mean 86 07/05/24 21:46 Blood Pressure Position Sitting 07/05/24 21:18 Pulse Oximetry 96 07/05/24 23:20 Oxygen Delivery Method Room Air 07/05/24 21:18 Oxygen Flow Rate 0 07/05/24 21:18 Pain Level 6 07/05/24 21:24 Lab/Test Results Lab/Test Results: Laboratory Tests Range/Units 07/05/24 07/05/24 21:28 22:32 WBC (4.4-10.8) 10^3/uL 9.06 RBC (3.93-5.22) 10^6/uL 4.22 Hgb (11.2-15.7) g/dL 12.6 Hct (36.0-46.0) % 38.3 MCV (80-95) fL 91 MCH (27.0-33.0) pg 29.9 MCHC (32.0-36.0) % 32.9 RDW (11.7-14.6) % 13.1 Plt Count (130-400) 10^3/uL 284 MPV (8.0-11.0) fL 9.7 Immature Gran % % 0.2 Neutrophils % % 41.5 Lymphocytes % % 46.4 Monocytes % % 7.7 Eosinophils % % 3.5 Basophils % % 0.7 Nucleated RBC % (0.0-0.3) % 0.0 Absolute Neutrophils (1.2-6.7) 10^3/uL 3.76 Absolute Lymphocytes (1.2-3.4) 10^3/uL 4.20 H Absolute Monocytes (0.1-0.8) 10^3/uL 0.70 Absolute Eosinophils (0.0-0.7) 10^3/uL 0.32 Absolute Basophils (0.0-0.2) 10^3/uL 0.06 Sodium (136-145) mmol/L 134 L Potassium (3.5-5.1) mmol/L 3.7 Chloride (98-107) mmol/L 98 Carbon Dioxide (21.0-32.0) mmol/L 27.9 Anion Gap (3-11) mmol/L 8.1 BUN (7-18) mg/dL 18 Creatinine (0.55-1.02) mg/dL 0.9 Est GFR (CKD-EPI 2020) (mL/min/1.73m2) 76.44 Glucose (74-106) mg/dL 117 H Calcium (8.5-10.1) mg/dL 9.4 Total Bilirubin (0.2-1.0) mg/dL 0.28 AST (15-37) U/L 15 ALT (14-59) U/L 27 Alkaline Phosphatase (46-116) U/L 108 Troponin I (<or=51) ng/L 5 6 Total Protein (6.4-8.2) g/dL 7.2 Albumin (3.4-5.0) g/dL 3.6 Lipase (16-77) U/L 73 Medical Decision Making 54-year-old female in no acute distress, hear score of 4, presenting with chest pain. EKG without ischemia or injury, please see attendings documentation. Chest x-ray without acute abnormality per radiology interpretation my review, troponins negative x 2 with high-sensitivity troponin, diagnostic labs reassuring. Patient is moderate risk, I am placing her on referral for outpatient follow-up with Dr. Hopper, cardiology for stress test at their discretion. Patient denies any recurrence of symptoms low suspicion that this pain is cardiac in nature. Low suspicion clinically for PE. Patient discharged home in stable condition with stable vitals Quality:SDOH Health Related Social Needs: No Data to Display PFSH All Active Problems (Updated 07/06/24 @ 18:52 by Mark Lopez MD) Chest wall pain (Acute) Atypical chest pain (Acute) Derangement of posterior horn of medial meniscus due to old tear or injury, right knee (Acute) Osteoarthritis of right knee (Acute) Contusion of right knee (Acute) Otalgia, left ear (Acute) Diastasis of rectus abdominis (Acute) Foot pain, bilateral (Acute) Cervicalgia (Acute) Otalgia, right ear (Acute) Osteoporosis (Chronic) Heart murmur (Acute) Arthritis (Acute) Near syncope (Acute) Cephalgia (Acute) Dizziness (Acute) Hypertension (Chronic) Dizziness (Acute) Arm pain, left (Acute) Kidney stone on left side (Acute) Adnexal mass (Acute) Adnexal mass (Acute) Primary osteoarthritis of left knee (Acute) Synvisc injection: 01/01/2021 Basal cell carcinoma (Acute) nose, removed at [facility] derm December 2019 Saul's disease (Acute) Atypical chest pain (Acute) DVT prophylaxis (Acute) Obesity (Chronic) Anxiety (Chronic) Diet-controlled type 2 diabetes mellitus (Chronic) KARMEN (obstructive sleep apnea) (Chronic) Hypertensive urgency (Acute) Headache (Acute) Family history of early CAD (Acute) Internal derangement of right knee (Acute) Benign hypertension (Acute 05/24/13) Obesity (Acute 05/24/13) Medical History Anxiety Diabetes GERD (gastroesophageal reflux disease) Hypertension KARMEN (obstructive sleep apnea) Otalgia of both ears Paroxysmal A-fib Surgical History Cholecystectomy H/O right wrist surgery Hx of colonoscopy Hx of salpingo-oophorectomy, bilateral S/P hysterectomy Partial 2017 Finished hysterectomy 05/2021 Family History Mother Heart disease [place] at 47 Diabetes Hypertension Breast cancer Anxiety Congestive heart failure Cataracts, bilateral Myocardial infarction Osteoporosis Arthritis GERD (gastroesophageal reflux disease) Maternal Grandmother Heart disease [place] @47 Diabetes Hypertension Breast cancer Arthritis Cancer Congestive heart failure Myocardial infarction Osteoporosis Maternal Aunt Heart disease sudden at 54 Maternal Grandfather Stroke Brother Stroke Father Substance abuse Social History Smoking/Tobacco Use Status: Former Tobacco Use Smoking risk assessment performed?: Yes Alcohol Intake: current Alcohol Intake frequency: holidays/special occasions only Drug use: Never Substance use type: does not use Housing: house Pets and animals: Yes (3 cats, 1 dog ) Pets and animals: cat(s) and dog(s) Current gender identity: female Do you feel safe at home: Yes Do you feel safe in your relationship?: Yes Female Reproductive History Menstrual Menopause type: surgical History History 3 Para 2 Hx # Term Pregnancies Multiple births Hx # Pregnancies Ectopic pregnancies AB induced Hx Number of Living Children AB spontaneous
== END 2024-07-05 23:35 | disposition home or self-care (01) ==
PROVIDERS: Emergency Provider Physician Assistant; PCP Naturopath
DX: R07.89 Other chest pain (principal); R10.12 Left upper quadrant pain
CPT/HCPCS: 36415; 80053; 83690; 93005; 96374; 99284; 71046; 84484; 85025; 93010; 99283

== ENCOUNTER 2024-07-06 13:59 | Emergency (ER) | payer BC, SELFPAY ==
[2024-07-06] VITALS (25 sets, daily range): BP systolic 136–163; BP diastolic 77–109; PULSE 48–71; RESP 10–26; TEMP 36.5; O2SAT 95–98
--- NOTE | 2024-07-06 14:15 | RT.EKG_ITS ---
APPROVED REPORT Exam: Resting ECG Reason for Exam: left chest pain Patient Location: E HR:63 bpm ECG Measurements Heart Rate [address] 158 P 46 QRSd 90 QRS -6 QT 411 T 3 QTc 420 Conclusion Sinus rhythm...normal P axis, V-rate 60- 99 Low voltage, precordial leads...precordial leads <1.0mV sinus rhtyhm, left axis, normal intervals, non ischemic
--- NOTE | 2024-07-06 14:23 | ED.GENADUL_ITS ---
Discharge Plan Disposition Patient Disposition: Home Discharge Details Clinical Impression: Chest wall pain Primary Care Provider: Devi Reyes ED Provider: Mark Lopez Home Meds and New Rx's Prescriptions: New cyclobenzaprine 5 mg tablet 5 mg PO QHS PRNQty: 7 0RF lidocaine [Lidoderm] 5 % adhesive patch,medicated 1 patch topical DAILY Qty: 15 0RF Rx Instructions: leave on most painful area for up to 12 hrs No Action Naltrex 4.5 mg capsule 4.5 mg PO DAILY losartan 50 mg tablet 100 mg PO DAILY Patient Comments: pt states she can only tolerate 50mg qd spironolactone 50 mg tablet 50 mg PO DAILY vitamin K2 40 mcg Tablet 40 mcg PO DAILY magnesium glycinate 100 mg Tablet 200 mg PO BID cholecalciferol (vitamin D3) 10,000 unit Tablet 10,000 unit PO DAILY potassium 99 mg Tablet 198 mg PO DAILY losartan 100 mg tablet 100 mg PO DAILY Patient Comments: TAKE ONE TABLET BY MOUTH EVERY MORNING (DME) [employer] G7 Sensor Device MISCELLANEOUS Patient Comments: USE EVERY 10 DAYS DIRECTED Discharge Instructions Instructions: Chest pain Additional Instructions: Please follow-up department care physician. Please return to the emerged part for any worsening symptoms HPI General Date/Time Provider Initiated Documentation: 07/06/24 14:03 . HPI Narrative: 55-year-old female presents with left lower chest discomfort left flank discomfort over the last 2 days, was evaluated for chest pain yesterday with negative workup. Some component of discomfort with breathing although does not feel short of breath. No cough no fevers no chills no nausea no vomiting no presyncope no palpitations, no history of coronary artery disease or thromboembolic disease. No recent travel trauma immobilization surgery or hospitalization. Related Data Home Medications ?Medication ?Instructions ?Recorded ?Confirmed cholecalciferol (vitamin D3) 250 10,000 unit PO DAILY 01/27/19 07/06/24 mcg (10,000 unit) tablet magnesium glycinate 100 mg (as 200 mg PO BID 01/27/19 07/06/24 glycinate) tablet vitamin K2 40 mcg tablet 40 mcg PO DAILY 01/27/19 07/06/24 potassium 99 mg tablet 198 mg PO DAILY 04/20/21 07/06/24 losartan 50 mg tablet 100 mg PO DAILY 04/26/21 07/06/24 spironolactone 50 mg tablet 50 mg PO DAILY 08/16/21 07/06/24 naltrexone 4.5 mg capsule (Naltrex) 4.5 mg PO DAILY 06/02/23 07/06/24 blood-glucose sensor (Dexcom G7 07/06/24 07/06/24 Sensor device) cyclobenzaprine 5 mg tablet 5 mg PO QHS PRN #7 tabs 07/06/24 lidocaine 5 % topical patch 1 patch topical DAILY #15 ea 07/06/24 (Lidoderm) losartan 100 mg tablet 100 mg PO DAILY 07/06/24 07/06/24 Previous Rx's ?Medication ?Instructions ?Recorded cyclobenzaprine 5 mg tablet 5 mg PO QHS PRN #7 tabs 07/06/24 lidocaine 5 % topical patch 1 patch topical DAILY #15 ea 07/06/24 (Lidoderm) Allergies Allergy/AdvReac Type Severity Reaction Status Date / Time sulfamethoxazole (From Allergy Severe Anaphylaxsi Verified 07/06/24 14:06 Bactrim) s ciprofloxacin (From Cipro) Allergy Mild Anaphylaxis Verified 07/06/24 14:06 amiloride Allergy Unknown Unknown Verified 07/06/24 14:06 buspirone Allergy Unknown Unknown Verified 07/06/24 14:06 lisinopril Allergy Unknown Unknown Verified 07/06/24 14:06 contrast dye Allergy Intermediate nasal Uncoded 07/06/24 14:06 congestion / facial flushing and rash General Stated Complaint: Abd Prob RADHA: 3 Exam Narrative Exam Narrative: Alert oriented interactive Speaking full sentences tolerating secretions Moving good air no wheezing rales or rhonchi Normal heart sounds no murmurs rubs or gallops Abdomen soft nontender nondistended no CVA tenderness No appreciable rash ecchymosis or abrasion Neurologically intact moving all extremities no ataxia normal speech no deficit No peripheral edema Course Vital Signs Vital signs: Vital Signs Temperature 36.5 C 07/06/24 14:01 Pulse 71 07/06/24 14:01 Respiratory Rate 07/06/24 14:01 Blood Pressure 136/77 07/06/24 14:01 Pulse Oximetry 96 07/06/24 14:01 Temperature 36.5 C 07/06/24 14:01 Pulse 71 07/06/24 14:01 Respiratory Rate 22 07/06/24 14:01 Blood Pressure 136/77 07/06/24 14:01 Blood Pressure Position Sitting 07/06/24 14:01 Pulse Oximetry 96 07/06/24 14:01 Oxygen Delivery Method Room Air 07/06/24 14:01 Oxygen Flow Rate 0 07/06/24 14:01 Pain Level 8 07/06/24 14:01 Medical Decision Making 55-year-old female presents with left lower chest discomfort left flank discomfort over the last 2 days, was evaluated for chest pain yesterday with negative workup. Some component of discomfort with breathing although does not feel short of breath. No cough no fevers no chills no nausea no vomiting no presyncope no palpitations, no history of coronary artery disease or thromboembolic disease. No recent travel trauma immobilization surgery or hospitalization. Hemodynamically stable afebrile nontoxic no tachypnea no hypoxia no tachycardia, no peripheral edema, lungs and heart sounds normal, EKG pending, given lower lateral discomfort with component of pleuritic nature consider PE versus atypical ACS versus costochondritis versus less likely pyelonephritis lower suspicion for splenic infarct lower suspicion for enteritis or colitis lower suspicion for gastritis low suspicion for pneumonia or pneumothorax. Patient endorses a reaction to contrast in the past in which she became flushed and had nasal congestion and a facial rash. Patient is amenable to premedication however I have discussed with her that we will proceed with D- dimer to attempt to limit her IV contrast exposure if possible. If elevated consider premedication versus admission for VQ scan. 18: 52 patient resting in bed no acute distress hemodynamically stable no chest pain or shortness of breath. CT chest abdomen pelvis unremarkable. D-dimer negative. Consider costochondritis versus pleurisy. Home care instructions and return precautions given Quality:SDOH Health Related Social Needs: No Data to Display PFSH All Active Problems (Updated 07/06/24 @ 18:52 by Mark Lopez MD) Chest wall pain (Acute) Atypical chest pain (Acute) Derangement of posterior horn of medial meniscus due to old tear or injury, right knee (Acute) Osteoarthritis of right knee (Acute) Contusion of right knee (Acute) Otalgia, left ear (Acute) Diastasis of rectus abdominis (Acute) Foot pain, bilateral (Acute) Cervicalgia (Acute) Otalgia, right ear (Acute) Osteoporosis (Chronic) Heart murmur (Acute) Arthritis (Acute) Near syncope (Acute) Cephalgia (Acute) Dizziness (Acute) Hypertension (Chronic) Dizziness (Acute) Arm pain, left (Acute) Kidney stone on left side (Acute) Adnexal mass (Acute) Adnexal mass (Acute) Primary osteoarthritis of left knee (Acute) Synvisc injection: 01/01/2021 Basal cell carcinoma (Acute) nose, removed at [facility] derm December 2019 Saul's disease (Acute) Atypical chest pain (Acute) DVT prophylaxis (Acute) Obesity (Chronic) Anxiety (Chronic) Diet-controlled type 2 diabetes mellitus (Chronic) KARMEN (obstructive sleep apnea) (Chronic) Hypertensive urgency (Acute) Headache (Acute) Family history of early CAD (Acute) Internal derangement of right knee (Acute) Benign hypertension (Acute 05/24/13) Obesity (Acute 05/24/13) Medical History Anxiety Diabetes GERD (gastroesophageal reflux disease) Hypertension KARMEN (obstructive sleep apnea) Otalgia of both ears Paroxysmal A-fib Surgical History Cholecystectomy H/O right wrist surgery Hx of colonoscopy Hx of salpingo-oophorectomy, bilateral S/P hysterectomy Partial 2017 Finished hysterectomy 05/2021 Family History Mother Heart disease [place] at 47 Diabetes Hypertension Breast cancer Anxiety Congestive heart failure Cataracts, bilateral Myocardial infarction Osteoporosis Arthritis GERD (gastroesophageal reflux disease) Maternal Grandmother Heart disease [place] @47 Diabetes Hypertension Breast cancer Arthritis Cancer Congestive heart failure Myocardial infarction Osteoporosis Maternal Aunt Heart disease sudden at 54 Maternal Grandfather Stroke Brother Stroke Father Substance abuse Social History Smoking/Tobacco Use Status: Former Tobacco Use Smoking risk assessment performed?: Yes Alcohol Intake: current Alcohol Intake frequency: holidays/special occasions only Drug use: Never Substance use type: does not use Housing: house Pets and animals: Yes (3 cats, 1 dog ) Pets and animals: cat(s) and dog(s) Current gender identity: female Do you feel safe at home: Yes Do you feel safe in your relationship?: Yes Female Reproductive History Menstrual Menopause type: surgical History History 3 Para 2 Hx # Term Pregnancies Multiple births Hx # Pregnancies Ectopic pregnancies AB induced Hx Number of Living Children AB spontaneous
[2024-07-06 15:07] LABS: Abs Immature Grans 0.02 10^3/uL (0.0-0.06); Absolute Basophil Count 0.05 10^3/uL (0.0-0.2); Absolute Eosinophil Count 0.28 10^3/uL (0.0-0.7); Absolute Lymphocyte Count 3.43 10^3/uL (1.2-3.4); Absolute Monocyte Count 0.59 10^3/uL (0.1-0.8); Absolute Neutrophil Count 4.54 10^3/uL (1.2-6.7); Basophils % 0.6 %; Eosinophils % 3.1 %; HCT 40.5 % (36.0-46.0); HGB 13.2 g/dL (11.2-15.7); Immature Grans % 0.2 %; Lymphocytes % 38.5 %; MCH 29.7 pg (27.0-33.0); MCHC 32.6 % (32.0-36.0); MCV 91 fL (80-95); MPV 9.5 fL (8.0-11.0); Monocytes % 6.6 %; Platelet Count 288 10^3/uL (130-400); RBC 4.45 10^6/uL (3.93-5.22); RDW-SD 43.5 fL; WBC 8.91 10^3/uL (4.4-10.8)
[2024-07-06 15:11] LABS: Bilirubin Negative (Negative); Blood Negative (Negative); Clarity Clear (Clear); Glucose Negative (Negative); Ketones Negative (Negative); Leukocyte Esterase Negative (Negative); Nitrite Negative (Negative); Specific Gravity 1.015 (1.005-1.025); Urobilinogen 0.2 mg/dL (Up to 0.2)
[2024-07-06 15:32] LABS: Prothrombin Time 9.7 sec (9.1-11.1)
[2024-07-06 15:36] LABS: ALT 27 U/L (14-59); AST 20 U/L (15-37); Albumin 3.8 g/dL (3.4-5.0); Alkaline Phosphatase 107 U/L (46-116); Anion Gap 6.6 mmol/L (3-11); BUN 13 mg/dL (7-18); Bilirubin, Total 0.39 mg/dL (0.2-1.0); CO2 28.4 mmol/L (21.0-32.0); CREATININE 0.8 mg/dL (0.55-1.02); Calcium 9.7 mg/dL (8.5-10.1); Chloride 104 mmol/L (98-107); Estimated GFR 88.05 (mL/min/1.73m2); Glucose 91 mg/dL (74-106); NT-proBNP 77 pg/mL (<300); Potassium 3.8 mmol/L (3.5-5.1); Sodium 139 mmol/L (136-145); TSH (W/Ref FT4) 2.14 uIU/mL (0.36-3.74); Total Protein 7.6 g/dL (6.4-8.2); Troponin I 4 ng/L (<or=51)
[2024-07-06 15:49] LABS: D-Dimer 459 ng/mlFEU (<500)
--- NOTE | 2024-07-06 16:10 | DI.CT_ITS ---
Exam(s) CT CHEST/ABD/PEL WO EXAM: CT CHEST/ABD/PEL WO CLINICAL HISTORY: left lower lateral chest/flank/abd pain. TECHNIQUE: Imaging Protocol: Axial computed tomography images with coronal and sagittal reformatted images were created and reviewed CONTRAST MATERIAL: Noncontrast COMPARISON: CT CT ABDOMEN PELVIS WO/W from 05/10/[address] BRAIN NECK CTA from 06/23/2021 CR XR LUMBAR SPINE COMPLETE from 10/15/2021 CR,XR XR CHEST 2V PA LATERAL from 07/05/2024 FINDINGS: CHEST: Tracheobronchial tree: Patent. Pulmonary parenchyma: No consolidation or dominant measurable mass. Pleura: No effusion or pneumothorax. Mediastinum: Within normal limits. Aorta: Thoracic portion non-dilated. Pulmonary arteries: No visible emboli. Heart: No pericardial effusion. Normal size. Mild coronary artery calcifications. Bones: Degenerative disc changes and increased thoracic kyphosis. No lytic or blastic lesions.No com pression fractures. Soft tissues: Unremarkable. ABDOMEN and PELVIS: Liver: Normal density. Enlarged at 22 cm in length. No measurable mass. Gallbladder and biliary tract: Status post cholecystectomy. No biliary dilatation. Pancreas: Normal density, no abnormal calcifications or inflammatory process. Spleen: Normal. Kidneys: Normal size, contour and axis. No radiodense stones. No obstructive uropathy. No suspicious masses seen. Adrenal glands: No masses seen. Aorta: Abdominal portion non-dilated. Lymph nodes: Within normal limits. Soft tissues: Umbilical hernia containing a nonobstructed loop of bowel. The hernia neck is wide. Bladder: Unremarkable. Bowel: No obstruction or bowel wall thickening. Normal quantity of stool. No evidence of appendici tis. Peritoneal cavity: No ascites. No focal collection. No mesenteric inflammatory response. No free ai r. Bones: Degenerative changes. Reproductive organs: Status post hysterectomy. Previously noted cystic pelvic lesion is no longer pr esent. IMPRESSION: No acute abnormality in the chest, abdomen or pelvis. Umbilical hernia containing nonobstructed loop of small bowel. RADIATION DOSE DELIVERED: Total DLP DATA REPOSITORY: All CT scans at this facility are submitted to the National Radiology Data Registry (NRDR) Dose Index Registry (DIR) with the [employer] (ACR). RADIATION OPTIMIZATION: All CT scans at this facility use at least one of these dose optimization te chniques: automated exposure control; mA and/or kV adjustment per patient size (includes targeted exa ms where dose is matched to clinical indication); or iterative reconstruction.
[2024-07-06 17:52] LABS: Troponin I 5 ng/L (<or=51)
== END 2024-07-06 19:16 | disposition home or self-care (01) ==
PROVIDERS: Emergency Provider Emergency Medicine; PCP Naturopath
DX: R07.89 Other chest pain (principal); I10 Essential (primary) hypertension
CPT/HCPCS: 36415; 71250; 80053; 93005; 99284; 74176; 81003; 83880; 84443; 84484; 85025; 85379; 85610; 85730; 93010; 99283

== ENCOUNTER 2024-07-26 15:10 | Outpatient (REF) | payer BC, SELFPAY ==
[2024-07-26 20:20] LABS: Creatinine,Urine 129.39 mg/dL
[2024-07-26 20:21] LABS: Total Volume 1700 ml
[2024-07-31 01:58] LABS: Cortisol, U 48 mcg/24 h (3.5-45); Urine Volume 1700 mL
== END 2024-07-26 15:11 | disposition home or self-care (01) ==
LOC: LBN 15:10
PROVIDERS: PCP Naturopath; Visit Provider Internal Medicine Endocrinology, Diabetes & Metabolism
DX: R82.998 Other abnormal findings in urine (principal)
CPT/HCPCS: 82530; 82570; 83789

== ENCOUNTER 2024-07-28 00:35 | Outpatient (CLI) | payer BC, SELFPAY ==
--- NOTE | 2024-07-28 16:30 | DI.MAMMO_ITS ---
Exam(s) MAMMO SCREENING EXAM: MAMMO SCREENING CLINICAL HISTORY: screening. TECHNIQUE: Bilateral full field digital CC and MLO mammographic images were obtained with 3D tomosyn thesis and utilizing computer aided detection (CAD). COMPARISON: Prior mammograms were reviewed. FINDINGS: There has been no significant change in the appearance and distribution of the fibroglandular tissue. There are no new spiculated masses nor malignant appearing microcalcification groups. There is no significant architectural distortion nor skin thickening-retraction. IMPRESSION: No radiographic evidence of malignancy. BI-RADS Category 1 - Negative Breast Density - Category B - Scattered areas of fibroglandular density Breast density Category C or D implies that the patient has dense breast tissue. Dense breast tissue can make it harder to find cancer on a mammogram. Dense breast tissue is also associated with an incr eased risk of breast cancer. This information about the result of the mammogram report was provided to the patient to raise their awareness. Use this report when you speak with the patient about their risks for breast cancer, which includes their family history. At that time, you may recommend additional screening tests (Ultrasoun d or MRI) as these tests may add significant information. A negative radiographic report should not delay biopsy if a dominant or clinically suspicious mass is present. Up to ten percent of cancers are not identified on mammography. A negative report may reinforce clinical impression. Adenosis and dense breasts may obscure an underlying neoplasm. False positive reports average 6 to 10%. Patient will receive a letter notifying them of these results.
== END 2024-07-28 00:55 ==
LOC: DI 00:35
PROVIDERS: PCP Naturopath; Visit Provider Obstetrics & Gynecology
DX: Z12.31 Encounter for screening mammogram for malignant neoplasm of breast (principal)
CPT/HCPCS: 77063; 77067

== ENCOUNTER 2024-08-26 02:14 | Outpatient (CLI) | payer BC, SELFPAY ==
--- NOTE | 2024-08-26 | DI.DEXA_ITS ---
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 No compression deformities identified. Left hip: Total T-Score: 2.0 Total Z-Score: 2.6 T- and Z-scores: Within normal limits. Lumbar Spine: Total T-Score: 2.9 Total Z-Score: 3.9 T- and Z-scores: Within normal limits. IMPRESSION: No evidence of osteoporosis.
== END 2024-08-26 02:34 ==
LOC: DI 02:14
PROVIDERS: PCP Naturopath; Visit Provider Naturopath
DX: Z13.820 Encounter for screening for osteoporosis (principal); M40.04 Postural kyphosis, thoracic region
CPT/HCPCS: 77080

== ENCOUNTER 2024-09-03 03:46 | Emergency (ER) | payer BC, SELFPAY ==
[2024-09-03] VITALS (8 sets, daily range): BP systolic 127–204; BP diastolic 82–172; PULSE 73–153; RESP 13–20; O2SAT 93–98
--- NOTE | 2024-09-03 03:45 | RT.EKG_ITS ---
APPROVED REPORT Exam: Resting ECG Reason for Exam: afib Patient Location: E HR:142 bpm ECG Measurements Heart Rate 142 AXIS AR [id number] P [id number] QRSd 90 QRS -5 QT 298 T 142 QTc 459 Conclusion Atrial fibrillation. Nonspecific repolarizartion abnormality
[2024-09-03 04:10] LABS: Bilirubin Negative (Negative); Blood Negative (Negative); Clarity Clear (Clear); Glucose Negative (Negative); Ketones Negative (Negative); Leukocyte Esterase Negative (Negative); Nitrite Negative (Negative); Specific Gravity 1.015 (1.005-1.025); Urobilinogen 0.2 mg/dL (Up to 0.2); pH 7.5 (5-8)
--- NOTE | 2024-09-03 04:15 | RT.EKG_ITS ---
APPROVED REPORT Exam: Resting ECG Reason for Exam: arrythmia Patient Location: E HR:78 bpm ECG Measurements Heart Rate 78 AXIS MT 179 P 42 QRSd 101 QRS -10 QT 386 T 9 QTc 442 Conclusion Sinus rhythm...normal P axis, V-rate 60- 99 Low voltage, precordial leads...precordial leads <1.0mV Probable left ventricular hypertrophy...multiple LVH criteria
[2024-09-03 04:18] LABS: Abs Immature Grans 0.02 10^3/uL (0.0-0.06); Absolute Basophil Count 0.06 10^3/uL (0.0-0.2); Absolute Eosinophil Count 0.34 10^3/uL (0.0-0.7); Absolute Lymphocyte Count 3.73 10^3/uL (1.2-3.4); Absolute Monocyte Count 0.65 10^3/uL (0.1-0.8); Absolute Neutrophil Count 3.51 10^3/uL (1.2-6.7); Basophils % 0.7 %; Eosinophils % 4.1 %; HCT 41.8 % (36.0-46.0); HGB 13.7 g/dL (11.2-15.7); Immature Grans % 0.2 %; Lymphocytes % 44.9 %; MCH 29.8 pg (27.0-33.0); MCHC 32.8 % (32.0-36.0); MCV 91 fL (80-95); MPV 9.3 fL (8.0-11.0); Monocytes % 7.8 %; Neutrophils % 42.3 %; Platelet Count 316 10^3/uL (130-400); RDW 13.1 % (11.7-14.6); RDW-SD 42.9 fL; WBC 8.31 10^3/uL (4.4-10.8)
--- NOTE | 2024-09-03 04:23 | NUR.NOTE ---
Nursing Note: Pt converted from afib to NSR at 0416. MD Anderson aware. Repeat EKG completed.
--- NOTE | 2024-09-03 04:27 | ED.GENADUL_ITS ---
Discharge Plan Disposition Patient Disposition: Home Discharge Details Chief Complaint: Arrhythmia Clinical Impression: Paroxysmal atrial fibrillation Primary Care Provider: Devi Reyes ED Provider: Ilir Anderson Home Meds and New Rx's Prescriptions: No Action Naltrex 4.5 mg capsule 4.5 mg PO DAILY spironolactone 50 mg tablet 50 mg PO DAILY vitamin K2 40 mcg Tablet 40 mcg PO DAILY magnesium glycinate 100 mg Tablet 200 mg PO BID cholecalciferol (vitamin D3) 10,000 unit Tablet 10,000 unit PO DAILY potassium 99 mg Tablet 198 mg PO QID losartan 100 mg tablet 100 mg PO DAILY Patient Comments: TAKE ONE TABLET BY MOUTH EVERY MORNING (DME) Dexcom G7 Sensor Device MISCELLANEOUS Patient Comments: USE EVERY 10 DAYS DIRECTED cyclobenzaprine 5 mg tablet 5 mg PO QHS PRNQty: 7 0RF Discharge Instructions Instructions: Atrial Fibrillation (DC) Additional Instructions: Talk to your physician about potentially using a medication like propafenone at home to help abort any episodes of A-fib before coming to the emergency room. You can always return to the ER for any new concerns or sudden changes in your health which you feel require emergency medical attention. Discharge Data Discharge Physician: Ilir Anderson [facility] General Date/Time Provider Initiated Documentation: 09/03/24 04:03 . HPI Narrative: The patient is a 54-year-old female, with a past medical history significant for paroxysmal atrial fibrillation which seems to be related to periodic intermittent hypokalemia, presents to the emergency department this evening complaining of recurrent atrial fibrillation which began this morning at 2:46 AM. The patient does not take any current rate control agents or anticoagulation as she has relatively rare episodes of the atrial fibrillation, her last one was in April. The patient has had a significantly decreased amount of atrial fibrillation since she began high doses of potassium supplementation to keep her potassium above 4. The patient states that she typically has runs of A-fib that last for 30 to 45 minutes and they usually abort when she is getting in the car to come to the emergency room. The patient was here in the emergency room with rapid A-fib into the 170s and as the nurse was drawing up the IV diltiazem to provide the bolus, the patient broke into a normal sinus rhythm. Related Data Home Medications ?Medication ?Instructions ?Recorded ?Confirmed cholecalciferol (vitamin D3) 250 10,000 unit PO DAILY 01/27/19 09/03/24 mcg (10,000 unit) tablet magnesium glycinate 100 mg (as 200 mg PO BID 01/27/19 09/03/24 glycinate) tablet vitamin K2 40 mcg tablet 40 mcg PO DAILY 01/27/19 09/03/24 potassium 99 mg tablet 198 mg PO QID 04/20/21 09/03/24 spironolactone 50 mg tablet 50 mg PO DAILY 08/16/21 09/03/24 naltrexone 4.5 mg capsule (Naltrex) 4.5 mg PO DAILY 06/02/23 09/03/24 blood-glucose sensor (Dexcom G7 07/06/24 07/21/24 Sensor device) cyclobenzaprine 5 mg tablet 5 mg PO QHS PRN #7 tabs 07/06/24 09/03/24 losartan 100 mg tablet 100 mg PO DAILY 07/06/24 09/03/24 Previous Rx's ?Medication ?Instructions ?Recorded cyclobenzaprine 5 mg tablet 5 mg PO QHS PRN #7 tabs 07/06/24 Allergies Allergy/AdvReac Type Severity Reaction Status Date / Time sulfamethoxazole (From Allergy Severe Anaphylaxsi Verified 09/03/24 03:55 Bactrim) s ciprofloxacin (From Cipro) Allergy Mild Anaphylaxis Verified 09/03/24 03:55 amiloride Allergy Unknown Unknown Verified 09/03/24 03:55 buspirone Allergy Unknown Unknown Verified 09/03/24 03:55 lisinopril Allergy Unknown Unknown Verified 09/03/24 03:55 contrast dye Allergy Intermediate nasal Uncoded 09/03/24 03:55 congestion / facial flushing and rash General Stated Complaint: Arrhythmia RADHA: 3 Exam Const General: cooperative, healthy appearing, comfortable and no acute distress Resp Effort & Inspection: normal respiratory effort and able to speak in complete sentences Auscultation: clear to auscultation bilaterally Cardio Rate: tachycardic Rhythm: abnormal rhythm irregularly irregular Heart Sounds: other (Too fast to appreciate) GI Inspection: normal to inspection Palpation: soft and nontender Neuro Cranial Nerves: CN's II-XI intact bilaterally Speech: speech normal Gait: normal gait Motor: muscle tone normal throughout and strength 5/5 throughout Sensory Exam: no sensory deficits noted Course Vital Signs Vital signs: Vital Signs Pulse 105 H 09/03/24 03:51 Blood Pressure 204/172 H 09/03/24 03:51 Pulse Oximetry 98 09/03/24 03:51 Pulse 76 09/03/24 04:16 Pulse 83 09/03/24 04:20 Respiratory Rate 18 09/03/24 04:20 Respiratory Effort Normal 09/03/24 03:55 Blood Pressure 127/82 09/03/24 04:16 Blood Pressure Mean 98 09/03/24 04:16 Blood Pressure Position Sitting 09/03/24 03:51 Pulse Oximetry 96 09/03/24 04:20 Oxygen Delivery Method Room Air 09/03/24 03:51 Oxygen Flow Rate 0 09/03/24 03:51 Lab/Test Results Lab/Test Results: Laboratory Tests Range/Units 09/03/24 04:00 Urine Color (Yellow) Yellow Urine Clarity (Clear) Clear Urine pH (5-8) 7.5 Ur Specific [place] (1.005-1.025) 1.015 Urine Protein (Neg-Trace) mg/dL Negative Urine Ketones (Negative) mg/dL Negative Urine Blood (Negative) Negative Urine Nitrite (Negative) Negative Urine Bilirubin (Negative) Negative Urine Urobilinogen (Up to 0.2) mg/dL 0.2 Ur Leukocyte Esterase (Negative) Negative Urine Glucose (Negative) mg/dL Negative POC- Test(urine) Negative Medical Decision Making The patient was seen here in the emergency room. She had 2 EKGs 1 to confirm that she was in rapid atrial fibrillation, and a second to confirm that she had broken into normal sinus rhythm when she did. The patient was never given any medication here in the emergency room. She did have an IV and labs drawn. The patient is requesting to leave before the results of her labs returned. The patient will follow her potassium level on the portal. The patient has no symptoms at this time and is requesting discharge. Quality:SDOH Health Related Social Needs: No Data to Display PFSH All Active Problems (Updated 09/03/24 @ 04:32 by Ilir Anderson MD) Paroxysmal atrial fibrillation (Acute) Derangement of posterior horn of medial meniscus due to old tear or injury, right knee (Acute) Osteoarthritis of right knee (Acute) Diastasis of rectus abdominis (Acute) Foot pain, bilateral (Acute) Cervicalgia (Acute) Osteoporosis (Chronic) Heart murmur (Acute) Arthritis (Acute) Dizziness (Acute) Arm pain, left (Acute) Kidney stone on left side (Acute) Primary osteoarthritis of left knee (Acute) Synvisc injection: 01/01/2021 Basal cell carcinoma (Acute) nose, removed at [facility] derm December 2019 Saul's disease (Acute) Atypical chest pain (Acute) DVT prophylaxis (Acute) Obesity (Chronic) Anxiety (Chronic) Diet-controlled type 2 diabetes mellitus (Chronic) KARMEN (obstructive sleep apnea) (Chronic) Headache (Acute) Family history of early CAD (Acute) Internal derangement of right knee (Acute) Benign hypertension (Acute 05/24/13) Medical History (Updated 09/03/24 @ 04:32 by Ilir Anderson MD) Otalgia of both ears Paroxysmal A-fib GERD (gastroesophageal reflux disease) Surgical History Hx of colonoscopy Hx of salpingo-oophorectomy, bilateral H/O right wrist surgery S/P hysterectomy Partial 2017 Finished hysterectomy 05/2021 Cholecystectomy Family History Mother Heart disease [place] at 47 Diabetes Hypertension Breast cancer Anxiety Congestive heart failure Cataracts, bilateral Myocardial infarction Osteoporosis Arthritis GERD (gastroesophageal reflux disease) Maternal Grandmother Heart disease [place] @47 Diabetes Hypertension Breast cancer Arthritis Cancer Congestive heart failure Myocardial infarction Osteoporosis Maternal Aunt Heart disease sudden at 54 Maternal Grandfather Stroke Brother Stroke Father Substance abuse Social History Smoking/Tobacco Use Status: Former Tobacco Use Smoking risk assessment performed?: Yes Alcohol Intake: current Alcohol Intake frequency: holidays/special occasions only Drug use: Never Substance use type: does not use Housing: house Pets and animals: Yes (3 cats, 1 dog ) Pets and animals: cat(s) and dog(s) Current gender identity: female Do you feel safe at home: Yes Do you feel safe in your relationship?: Yes Female Reproductive History Menstrual Menopause type: surgical History History 3 Para 2 Hx # Term Pregnancies Multiple births Hx # Pregnancies Ectopic pregnancies AB induced Hx Number of Living Children AB spontaneous
[2024-09-03 04:36] LABS: BUN 15 mg/dL (7-18); CREATININE 0.9 mg/dL (0.55-1.02); Calcium 9.6 mg/dL (8.5-10.1); Chloride 108 mmol/L (98-107); Estimated GFR 76.44 (mL/min/1.73m2); Glucose 123 mg/dL (74-106); Potassium 4.4 mmol/L (3.5-5.1); Sodium 146 mmol/L (136-145); Troponin I 12 ng/L (<or=51)
== END 2024-09-03 04:35 | disposition home or self-care (01) ==
PROVIDERS: Emergency Provider Emergency Medicine Emergency Medical Services; PCP Naturopath
DX: I48.0 Paroxysmal atrial fibrillation (principal); E11.9 Type 2 diabetes mellitus without complications; Z87.891 Personal history of nicotine dependence
CPT/HCPCS: 80048; 81025; 93005; 99284; 81003; 83735; 84484; 85025; 93010

== ENCOUNTER 2024-11-23 08:56 | Outpatient (CLI) | payer BC, SELFPAY ==
[2024-11-23 08:48] LABS: Kit/Specimen SENT
[2024-11-23 09:02] LABS: Abs Immature Grans 0.03 10^3/uL (0.0-0.06); Absolute Basophil Count 0.05 10^3/uL (0.0-0.2); Absolute Eosinophil Count 0.28 10^3/uL (0.0-0.7); Absolute Lymphocyte Count 2.49 10^3/uL (1.2-3.4); Absolute Monocyte Count 0.55 10^3/uL (0.1-0.8); Absolute Neutrophil Count 3.26 10^3/uL (1.2-6.7); Basophils % 0.8 %; Eosinophils % 4.2 %; HGB 12.5 g/dL (11.2-15.7); Immature Grans % 0.5 %; Lymphocytes % 37.4 %; MCH 29.3 pg (27.0-33.0); MCHC 32.9 % (32.0-36.0); MCV 89 fL (80-95); MPV 9.3 fL (8.0-11.0); Monocytes % 8.3 %; Neutrophils % 48.8 %; Platelet Count 294 10^3/uL (130-400); RBC 4.27 10^6/uL (3.93-5.22); RDW 13.2 % (11.7-14.6); WBC 6.66 10^3/uL (4.4-10.8)
[2024-11-23 09:10] LABS: Hemoglobin A1C 5.9 % (<5.7)
[2024-11-23 09:10] LABS: Bilirubin Negative (Negative); Blood Negative (Negative); Clarity Sl Cloudy (Clear); Glucose Negative (Negative); Ketones Negative (Negative); Leukocyte Esterase Negative (Negative); Nitrite Negative (Negative); Urobilinogen 0.2 mg/dL (Up to 0.2); pH 7.5 (5-8)
[2024-11-23 09:21] LABS: ALT 22 U/L (14-59); AST 13 U/L (15-37); Albumin 3.6 g/dL (3.4-5.0); Alkaline Phosphatase 115 U/L (46-116); Anion Gap 7.7 mmol/L (3-11); BUN 17 mg/dL (7-18); CO2 29.3 mmol/L (21.0-32.0); CREATININE 0.9 mg/dL (0.55-1.02); Calcium 9.3 mg/dL (8.5-10.1); Calculated LDL 127 mg/dL (<100); Chloride 100 mmol/L (98-107); Cholesterol 203 mg/dL (<200); Estimated GFR 76.44 (mL/min/1.73m2); Ferritin 218 ng/mL (8-252); Glucose 104 mg/dL (74-106); HDL Cholesterol 68 mg/dL (40-60); Potassium 3.7 mmol/L (3.5-5.1); Sodium 137 mmol/L (136-145); Total Protein 7.6 g/dL (6.4-8.2); Triglyceride 42 mg/dL (<150)
[2024-11-23 09:34] LABS: Iron 83 ug/dL (50-170)
[2024-11-24 09:06] LABS: Insulin 13.3 uIU/mL (<29.0)
[2024-11-24 10:30] LABS: ANA Interpretation Negative (Negative)
[2024-11-25 14:01] LABS: Copper, Serum 122 mcg/dL (77-206)
[2024-11-25 15:24] LABS: Lipoprotein (a) 60 nmol/L (<75)
[2024-11-26 12:17] LABS: Apolipoprotein A1, S 155 mg/dL (>=140); Apolipoprotein B, S 98 mg/dL (See Comment); Apolipoprotein B/A 1 ratio 0.6 (See Comment)
== END 2024-11-23 08:57 | disposition home or self-care (01) ==
LOC: LBO 08:57
PROVIDERS: PCP Naturopath; Visit Provider Naturopath
DX: E06.3 Autoimmune thyroiditis (principal); N20.0 Calculus of kidney; N39.3 Stress incontinence (female) (male); E11.65 Type 2 diabetes mellitus with hyperglycemia; N95.1 Menopausal and female climacteric states; K42.9 Umbilical hernia without obstruction or gangrene; R59.0 Localized enlarged lymph nodes; I48.92 Unspecified atrial flutter; M15.1 Heberden's nodes (with arthropathy); I10 Essential (primary) hypertension; R42 Dizziness and giddiness; K59.01 Slow transit constipation; M62.838 Other muscle spasm; G44.219 Episodic tension-type headache, not intractable; I70.91 Generalized atherosclerosis; E83.09 Other disorders of copper metabolism
CPT/HCPCS: 36415; 80053; 80061; 82172; 82525; 83695; 86141; 81003; 82728; 83036; 83525; 83540; 85025; 86038

== ENCOUNTER 2025-01-07 00:25 | Outpatient (CLI) | payer BC, SELFPAY ==
[2025-01-07 16:19] LABS: HCT 41.8 % (36.0-46.0); HGB 13.9 g/dL (11.2-15.7); MCH 29.5 pg (27.0-33.0); MCHC 33.3 % (32.0-36.0); MCV 89 fL (80-95); MPV 9.5 fL (8.0-11.0); Platelet Count 309 10^3/uL (130-400); RBC 4.71 10^6/uL (3.93-5.22); RDW 12.8 % (11.7-14.6); RDW-SD 41.9 fL; WBC 11.13 10^3/uL (4.4-10.8)
[2025-01-07 16:25] LABS: Hemoglobin A1C 5.9 % (<5.7)
[2025-01-07 16:46] LABS: Iron 39 ug/dL (50-170)
[2025-01-07 16:50] LABS: Abs Immature Grans 0.03 10^3/uL (0.0-0.06); Absolute Basophil Count 0.06 10^3/uL (0.0-0.2); Absolute Eosinophil Count 0.19 10^3/uL (0.0-0.7); Absolute Lymphocyte Count 2.82 10^3/uL (1.2-3.4); Absolute Monocyte Count 0.85 10^3/uL (0.1-0.8); Absolute Neutrophil Count 7.11 10^3/uL (1.2-6.7); Basophils % 0.5 %; Eosinophils % 1.7 %; Immature Grans % 0.3 %; Lymphocytes % 25.5 %; Monocytes % 7.7 %; Neutrophils % 64.3 %
[2025-01-07 16:55] LABS: Bilirubin Negative (Negative); Blood Negative (Negative); Clarity Clear (Clear); Glucose Negative (Negative); Ketones Negative (Negative); Leukocyte Esterase Negative (Negative); Nitrite Negative (Negative); Specific Gravity 1.015 (1.005-1.025); Urobilinogen 0.2 mg/dL (Up to 0.2)
[2025-01-07 17:05] LABS: ALT 26 U/L (14-59); AST 19 U/L (15-37); Albumin 4.1 g/dL (3.4-5.0); Alkaline Phosphatase 108 U/L (46-116); Anion Gap 8.7 mmol/L (3-11); BUN 24 mg/dL (7-18); Bilirubin, Total 0.4 mg/dL (0.2-1.0); CO2 31.3 mmol/L (21.0-32.0); CREATININE 1.1 mg/dL (0.55-1.02); Calcium 10.7 mg/dL (8.5-10.1); Calculated LDL 134 mg/dL (<100); Chloride 103 mmol/L (98-107); Cholesterol 216 mg/dL (<200); Estimated GFR 60.08 (mL/min/1.73m2); Ferritin 237 ng/mL (8-252); Glucose 105 mg/dL (74-106); HDL Cholesterol 70 mg/dL (>or=50); Potassium 4.3 mmol/L (3.5-5.1); Sodium 143 mmol/L (136-145); Triglyceride 62 mg/dL (<150)
[2025-01-07 17:22] LABS: C-Reactive Protein 1.12 mg/dL (<or=0.5)
[2025-01-10 10:25] LABS: Insulin 14.3 uIU/mL (<29.0)
[2025-01-10 12:30] LABS: ANA Interpretation Negative (Negative)
[2025-01-11 11:11] LABS: Copper, Serum 137 mcg/dL (77-206)
[2025-01-11 12:23] LABS: Lipoprotein (a) 70 nmol/L (<75)
[2025-01-12 08:15] LABS: Apolipoprotein A1, S 169 mg/dL (>=140); Apolipoprotein B, S 101 mg/dL (See Comment); Apolipoprotein B/A 1 ratio 0.6 (See Comment)
== END 2025-01-07 00:26 | disposition home or self-care (01) ==
PROVIDERS: PCP Naturopath; Visit Provider Naturopath
DX: E06.3 Autoimmune thyroiditis (principal); N20.0 Calculus of kidney; N39.3 Stress incontinence (female) (male); E11.65 Type 2 diabetes mellitus with hyperglycemia; G44.219 Episodic tension-type headache, not intractable; I70.91 Generalized atherosclerosis; E83.09 Other disorders of copper metabolism; N95.1 Menopausal and female climacteric states; K42.9 Umbilical hernia without obstruction or gangrene; R59.0 Localized enlarged lymph nodes; I48.92 Unspecified atrial flutter; M15.1 Heberden's nodes (with arthropathy); I10 Essential (primary) hypertension; R42 Dizziness and giddiness; K59.01 Slow transit constipation; M62.838 Other muscle spasm
CPT/HCPCS: 36415; 80053; 80061; 82172; 82525; 83695; 85027; 81003; 82728; 83036; 83525; 83540; 85007; 86038; 86140

== ENCOUNTER 2025-03-23 16:33 | Outpatient (CLI) | payer BC, SELFPAY ==
[2025-03-23 16:49] LABS: Anion Gap 9.1 mmol/L (3-11); BUN 22 mg/dL (7-18); CO2 27.9 mmol/L (21.0-32.0); CREATININE 0.8 mg/dL (0.55-1.02); Calcium 9.8 mg/dL (8.5-10.1); Chloride 101 mmol/L (98-107); Glucose 104 mg/dL (74-106); Potassium 4.2 mmol/L (3.5-5.1); Sodium 138 mmol/L (136-145)
== END 2025-03-23 16:34 | disposition home or self-care (01) ==
LOC: LBO 16:33
PROVIDERS: PCP Naturopath; Visit Provider Registered Nurse Nephrology
DX: I10 Essential (primary) hypertension (principal)
CPT/HCPCS: 36415; 80048

== ENCOUNTER 2025-06-12 13:21 | Emergency (ER) | payer BC, SELFPAY ==
--- NOTE | 2025-06-12 13:15 | RT.EKG_ITS ---
APPROVED REPORT Exam: Resting ECG Reason for Exam: Palpations Patient Location: E HR:83 bpm ECG Measurements Heart Rate 83 AXIS MI 169 P 61 QRSd 98 QRS -9 QT 367 T 9 QTc 431 Conclusion Sinus rhythm...normal P axis, V-rate 60- 99 Low voltage, precordial leads...precordial leads <1.0mV Borderline T abnormalities, diffuse leads...T flat/neg
[2025-06-12 13:28] VITALS: BP 134/85; PULSE 80; RESP 20; TEMP 36.7; O2SAT 96
--- NOTE | 2025-06-12 13:45 | DI.CT_ITS ---
Exam(s) CT THORAX ABD/PEL CTA EXAM: CT THORAX ABD/PEL CTA CLINICAL HISTORY: chest pain radiating to the back, ?dissection. TECHNIQUE: Imaging Protocol: Axial computed tomography images with coronal and sagittal reformatted images were created and reviewed CONTRAST MATERIAL: Intravenous: Omnipaque 350 Contrast volume:100 ml Oral: None COMPARISON: No exams were available for comparison FINDINGS: CHEST: AORTA: The diameter of the ascending thoracic aorta is within normal limits. There is no evidence of aortic dissection. Diameter of the aortic arch and descending thoracic aorta are upper normal and also without dissection. The abdominal aorta appears unremarkable. No aneurysm. No dissection. Celiac and superior mesenteric arteries and inferior mesenteric artery patent. There is also no significant stenosis at the origin of the renal arteries. Aortic bifurcation is patent. There is no stenosis nor aneurysmal dilatation of the common and external iliac arteries nor of the internal iliac arteries. Common femoral arteries are patent bilaterally LUNGS: No infiltrates nor pleural effusions. No significant nodules.. MEDIASTINUM: There is no hilar nor mediastinal adenopathy. Partially visualized thyroid unremarkable. CARDIAC: Heart size is normal. There is no pericardial effusion. ABDOMEN: There is no evidence of abdominal aortic aneurysm nor dissection. See above. There is no ascites. LIVER: Liver is hypodense implying steatosis. There no discrete focal hepatic lesions nor dilatation of intrahepatic ducts. GALLBLADDER/BILIARY: Gallbladder is surgically absent CBD is not dilated. PANCREAS: No evidence of pancreatic mass nor dilatation of the pancreatic duct. SPLEEN: Spleen is not enlarged. There are no intrasplenic lesions. Splenic and portal veins are patent. ADRENALS: There are no significant adrenal masses. KIDNEYS: No cysts evident. No calculi nor hydronephrosis. No solid renal masses. LYMPH NODES: There is no retroperitoneal nor para-aortic adenopathy. No obvious mesenteric masses. ABDOMINAL WALL: There is a E midline supraumbilical hernia which contains multiple small bowel loops. The hernia sac measures 11 cm wide by 5 cm AP by 12 cm craniocaudal. The bowel loops within the hernia sac do not appear edematous and there is no fluid within the hernia sac and there is no transition point- bowel obstruction evident. The neck of hernia is approximately 6 cm wide. GI: There is no evidence of bowel obstruction, free air, nor abscess. PELVIS: LYMPH NODES: There is no intrapelvic nor inguinal adenopathy. GI: No evidence of appendicitis.No significant sigmoid diverticular disease. URINARY BLADDER: No calculi nor masses evident REPRODUCTIVE: Uterus is surgically absent. There are no abnormal adnexal masses and no free fluid in the pelvis. OSSEOUS: No significant osseous lesions. No fractures. Sacroiliac joints appear unremarkable. IMPRESSION: 1. No evidence of significant aneurysm nor aortic dissection nor pericardial effusion, as per request. Heart size normal. 2. No significant pulmonary findings nor pleural effusions. 3. There is a midline supraumbilical anterior abdominal hernia which contains multiple nonobstructed and non edematous small bowel loops. Measurements of the hernia sac are as above. There is no evidence of bowel obstruction, free air, nor abscess. 4. Previous cholecystectomy and hysterectomy. Report called by myself to ER physician on 06/12/2025 at 4:27 p.m. RADIATION DOSE DELIVERED: 2,713.33mGy.cm Total DLP DATA REPOSITORY: All CT scans at this facility are submitted to the National Radiology Data Registry (NRDR) Dose Index Registry (DIR) with the [employer] (ACR). RADIATION OPTIMIZATION: All CT scans at this facility use at least one of these dose optimization techniques: automated exposure control; mA and/or kV adjustment per patient size (includes targeted exams where dose is matched to clinical indication); or iterative reconstruction.
--- NOTE | 2025-06-12 13:50 | W.ED.GENAD ---
Discharge Plan Disposition Patient Disposition: Home Condition: Stable Discharge Details Clinical Impression: Chest pain Primary Care Provider: Devi Reyes ED Provider: Hosea Nam Home Meds and New Rx's Prescriptions: Continued spironolactone 50 mg tablet 50 mg PO DAILY vitamin K2 40 mcg Tablet 40 mcg PO DAILY magnesium glycinate 100 mg Tablet 200 mg PO BID cholecalciferol (vitamin D3) 10,000 unit Tablet 10,000 unit PO DAILY losartan 100 mg tablet 100 mg PO DAILY Patient Comments: TAKE ONE TABLET BY MOUTH EVERY MORNING (DME) Dexcom G7 Sensor Device MISCELLANEOUS Patient Comments: USE EVERY 10 DAYS DIRECTED potassium chloride 20 mEq tablet,ER particles/crystals 20 meq PO TID Patient Comments: TAKE ONE TABLET BY MOUTH THREE TIMES A DAY WITH FOOD Zepbound 5 mg/0.5 mL pen injector 5 mg SUBCUT .qweekly Patient Comments: INJECT 5MG SUBCUTANEOUSLY ONCE WEEKLY nitrofurantoin macrocrystal 100 mg capsule 100 mg PO BID Patient Comments: TAKE ONE CAPSULE BY MOUTH TWICE A DAY WITH MEALS No Action Naltrex 4.5 mg capsule 4.5 mg PO DAILY potassium 99 mg Tablet 198 mg PO QID cyclobenzaprine 5 mg tablet 5 mg PO QHS PRNQty: 7 0RF Discharge Instructions Additional Instructions: Your blood work and CAT scan did not show any concerning findings at this time. follow-up with your primary care provider within 1 to 2 weeks. If you feel more ill, have severe worsening pain or difficulty breathing return to the emergency department for reevaluation. HPI General Mode of arrival: ambulatory. Date/Time Provider Initiated Documentation: 06/12/25 13:26. Limitations to Documentation: no limitations. Information obtained by: patient. History of Present Illness 55 year old F presents to the emergency department with the chief complaint of chest pain, described as moderate, Quality is described as aching, Patient reports radiation to back. Patient started experiencing this hour(s) (1) and it has been now resolved. No relieving factors improve symptom(s), No exacerbating factors reported . Patient notes denies fever/chills and syncope. Patient did receive the following treatments prior to arrival, none Related Data Home Medications ?Medication ?Instructions ?Recorded ?Confirmed cholecalciferol (vitamin D3) 250 10,000 unit PO DAILY 01/27/19 06/12/25 mcg (10,000 unit) tablet magnesium glycinate 100 mg (as 200 mg PO BID 01/27/19 06/12/25 glycinate) tablet vitamin K2 40 mcg tablet 40 mcg PO DAILY 01/27/19 06/12/25 potassium 99 mg tablet 198 mg PO QID 04/20/21 06/12/25 spironolactone 50 mg tablet 50 mg PO DAILY 08/16/21 06/12/25 naltrexone 4.5 mg capsule (Naltrex) 4.5 mg PO DAILY 06/02/23 06/12/25 blood-glucose sensor (Dexcom G7 07/06/24 06/12/25 Sensor device) cyclobenzaprine 5 mg tablet 5 mg PO QHS PRN #7 tabs 07/06/24 06/12/25 Held on 09/03/24. Instructions: Pt Stopped/Never Started losartan 100 mg tablet 100 mg PO DAILY 07/06/24 06/12/25 nitrofurantoin macrocrystal 100 mg 100 mg PO BID 06/12/25 06/12/25 capsule potassium chloride 20 mEq 20 meq PO TID 06/12/25 06/12/25 tablet,extended release(part/cryst) tirzepatide (weight loss) 5 mg/0.5 5 mg subcut .qweekly 06/12/25 06/12/25 mL subcutaneous pen injector (Zepbound) Previous Rx's ?Medication ?Instructions ?Recorded cyclobenzaprine 5 mg tablet 5 mg PO QHS PRN #7 tabs 07/06/24 Held on 09/03/24. Instructions: Pt Stopped/Never Started Allergies Allergy/AdvReac Type Severity Reaction Status Date / Time sulfamethoxazole (From Allergy Severe Anaphylaxsi Verified 06/12/25 13:37 Bactrim) s ciprofloxacin (From Cipro) Allergy Mild Anaphylaxis Verified 06/12/25 13:37 amiloride Allergy Unknown Unknown Verified 06/12/25 13:37 buspirone Allergy Unknown Unknown Verified 06/12/25 13:37 lisinopril Allergy Unknown Unknown Verified 06/12/25 13:37 contrast dye Allergy Intermediate nasal Uncoded 06/12/25 13:37 congestion / facial flushing and rash General Stated Complaint: Chest Pain RADHA: 3 Review of Systems All systems reviewed & are unremarkable except as noted in HPI and below Constitutional Constitutional: Denies chills, Denies fever(s) and Denies weakness Cardiovascular Cardiovascular: Reports chest pain and Denies dyspnea Respiratory Respiratory: Denies cough and Denies dyspnea Gastrointestinal Gastrointestinal: Denies abdominal pain, Denies nausea and Denies vomiting Neurologic Neurologic: Denies weakness Exam Const General: no acute distress Orientation: alert [facility] Head: normal to inspection Ears: external ears normal General nose exam: external nose normal Mouth: moist mucous membranes Eyes General: appearance normal, both eyes and all related structures Neck Neck: normal visual inspection Resp Effort & Inspection: normal respiratory effort and able to speak in complete sentences Auscultation: clear to auscultation bilaterally Cardio Jugular venous pressure: no JVD Rate: regular rate Heart Sounds: no murmurs GI Palpation: soft and nontender Skin General skin exam: no rashes or lesions noted Neuro General: patient alert and patient oriented x3 Extrem General: normal to inspection Psych Mental Status: mental status grossly normal Course Vital Signs Vital signs: Vital Signs Temperature 36.7 C 06/12/25 13:28 Pulse 80 06/12/25 13:28 Respiratory Rate 20 06/12/25 13:28 Blood Pressure 134/85 06/12/25 13:28 Pulse Oximetry 96 06/12/25 13:28 Temperature 36.7 C 06/12/25 13:28 Temperature Source Oral 06/12/25 13:28 Pulse 80 06/12/25 13:28 Respiratory Rate 20 06/12/25 13:28 Blood Pressure 134/85 06/12/25 13:28 Blood Pressure Position Sitting 06/12/25 13:28 Pulse Oximetry 96 06/12/25 13:28 Oxygen Delivery Method Room Air 06/12/25 13:28 Oxygen Flow Rate 0 06/12/25 13:28 Medical Decision Making 55-year-old female with history of intermittent A-fib usually due to hypokalemia comes in with 1 hour of chest pain radiating to her back. She says that she took more of her potassium supplements and that coconut water and states her symptoms have resolved. She denies any vomiting, diaphoresis, chills. She is well-appearing and stable on arrival. She has no leg swelling or calf tenderness. Soft nontender abdomen. Lung sounds clear, no JVD. Will check a CBC CMP and troponins and given the pain radiates to her back I will obtain a CTA to evaluate for possible dissection. Labs including delta troponin negative and CTA negative. Patient is stable and asymptomatic. She is requesting repeat potassium and does not want to wait for the results, she says that she likes to have these done and sees a specialist. Feel this is reasonable. She will follow-up with her PCP and return precautions given Differential Diagnosis Differential Diagnosis: hypokalemia, acs, dissecti Lab Data Lab results reviewed: Yes I reviewed the patient's lab results. ECG Data Attestation: I personally reviewed and interpreted this ECG (s) as follows: Prior ECG tracings: available for review Interpretation: sinus rhythm, rate of 83 no STEMI PFSH All Active Problems (Updated 06/12/25 @ 15:41 by Hosea Nam MD) Chest pain (Acute) Derangement of posterior horn of medial meniscus due to old tear or injury, right knee (Acute) Osteoarthritis of right knee (Acute) Diastasis of rectus abdominis (Acute) Foot pain, bilateral (Acute) Cervicalgia (Acute) Osteoporosis (Chronic) Heart murmur (Acute) Arthritis (Acute) Dizziness (Acute) Arm pain, left (Acute) Kidney stone on left side (Acute) Primary osteoarthritis of left knee (Acute) Synvisc injection: 01/01/2021 Basal cell carcinoma (Acute) nose, removed at [facility] derm December 2019 Saul's disease (Acute) Atypical chest pain (Acute) DVT prophylaxis (Acute) Obesity (Chronic) Anxiety (Chronic) Diet-controlled type 2 diabetes mellitus (Chronic) KARMEN (obstructive sleep apnea) (Chronic) Headache (Acute) Family history of early CAD (Acute) Internal derangement of right knee (Acute) Benign hypertension (Acute 05/24/13) Medical History Otalgia of both ears Paroxysmal A-fib GERD (gastroesophageal reflux disease) Surgical History Hx of colonoscopy Hx of salpingo-oophorectomy, bilateral H/O right wrist surgery S/P hysterectomy Partial 2017 Finished hysterectomy 05/2021 Cholecystectomy Family History Mother Heart disease [place] at 47 Diabetes Hypertension Breast cancer Anxiety Congestive heart failure Cataracts, bilateral Myocardial infarction Osteoporosis Arthritis GERD (gastroesophageal reflux disease) Maternal Grandmother Heart disease [place] @47 Diabetes Hypertension Breast cancer Arthritis Cancer Congestive heart failure Myocardial infarction Osteoporosis Maternal Aunt Heart disease sudden at 54 Maternal Grandfather Stroke Brother Stroke Father Substance abuse Social History Smoking/Tobacco Use Status: Former Tobacco Use Smoking risk assessment performed?: Yes Alcohol Intake: current Alcohol Intake frequency: holidays/special occasions only Drug use: Never Substance use type: does not use Housing: house Pets and animals: Yes (3 cats, 1 dog ) Pets and animals: cat(s) and dog(s) Current gender identity: female Do you feel safe at home: Yes Do you feel safe in your relationship?: Yes Female Reproductive History Menstrual Menopause type: surgical History History 3 Para 2 Hx # Term Pregnancies Multiple births Hx # Pregnancies Ectopic pregnancies AB induced Hx Number of Living Children AB spontaneous PAWSS Have you Been Recently Intoxicated or Drunk Within the Last 30 days?: No Have you Ever Experienced Previous Episodes of Alcohol Withdrawal?: No Have you ever Experienced Withdrawal Seizures?: No Have you ever Experienced Delirium Tremens(DT)s?: No Have you ever undergone Alcohol Rehabilitation Treatment (i.e, inpt ot outpatient treatment programs)?: No Have you ever Experienced Blackouts?: No Have you ever Combined Alcohol with other Downers within the last 90 days?: No Have you ever Combined Alcohol with any other Substance of Abuse during the last 90 days?: No Positive Blood Alcohol level on Presentation? [PCS.BAL]: No Evidence of Increased Autonomic Activity (i.e. HR>120, tremor, sweating, agitation, nausea)?: No Result: 0
[2025-06-12 13:55] VITALS: RESP 16
[2025-06-12 13:57] LABS: Abs Immature Grans 0.02 10^3/uL (0.0-0.06); HCT 41.6 % (36.0-46.0); HGB 13.8 g/dL (11.2-15.7); Immature Grans % 0.2 %; MCH 29.1 pg (27.0-33.0); MCHC 33.2 % (32.0-36.0); MCV 88 fL (80-95); MPV 9.2 fL (8.0-11.0); Platelet Count 302 10^3/uL (130-400); RBC 4.74 10^6/uL (3.93-5.22); RDW 12.8 % (11.7-14.6); RDW-SD 41.1 fL; WBC 8.53 10^3/uL (4.4-10.8)
[2025-06-12] MEDS: diphenhydrAMINE 50 MG/ML VIAL IVP (14:15)
[2025-06-12 14:16] LABS: ALT 32 U/L (14-59); AST 21 U/L (15-37); Albumin 4.2 g/dL (3.4-5.0); Alkaline Phosphatase 104 U/L (46-116); Anion Gap 8.4 mmol/L (3-11); BUN 14 mg/dL (7-18); Bilirubin, Total 0.8 mg/dL (0.2-1.0); CO2 29.6 mmol/L (21.0-32.0); Calcium 9.8 mg/dL (8.5-10.1); Chloride 101 mmol/L (98-107); Estimated GFR 75.97 (mL/min/1.73m2); Glucose 108 mg/dL (74-106); Magnesium 1.9 mg/dL (1.8-2.4); Potassium 4.1 mmol/L (3.5-5.1); Sodium 139 mmol/L (136-145); Total Protein 8.1 g/dL (6.4-8.2)
[2025-06-12] MEDS: methylPREDNISolone SUCC 125 MG VIAL IVP (14:16)
[2025-06-12 14:22] LABS: Lipase 42 U/L (<78); NT-proBNP 47 pg/mL (<300); Troponin I 4 ng/L (<or=51)
[2025-06-12 15:32] LABS: Troponin I 6 ng/L (<or=51)
[2025-06-12] MEDS: Omnipaque 350 MG/ML 100 ML BTL IJ (15:32)
[2025-06-12] MEDS: Normal Saline - Diluent 50 ML VIAL IJ (15:33)
[2025-06-12 17:13] LABS: Potassium 4.2 mmol/L (3.5-5.1)
[2025-06-12 17:23] LABS: Troponin I 6 ng/L (<or=51)
== END 2025-06-12 17:22 | disposition home or self-care (01) ==
PROVIDERS: Emergency Provider Emergency Medicine; PCP Naturopath
DX: R07.9 Chest pain, unspecified (principal)
CPT/HCPCS: 99283; 99284; 96374; 96375; 71275; 80053; 83690; 93005; 74174; 83735; 83880; 84132; 84484; 85025; 93010; J1200; J2919; J3490

== ENCOUNTER 2025-07-04 01:45 | Outpatient (CLI) | payer BC, SELFPAY ==
[2025-07-04 08:30] LABS: Glucose Negative (Negative)
[2025-07-04 09:30] LABS: ALT 28 U/L (14-59); AST 20 U/L (15-37); Albumin 3.9 g/dL (3.4-5.0); Alkaline Phosphatase 98 U/L (46-116); Anion Gap 7.6 mmol/L (3-11); BUN 10 mg/dL (7-18); Bilirubin, Total 0.6 mg/dL (0.2-1.0); CO2 28.4 mmol/L (21.0-32.0); Calcium 9.2 mg/dL (8.5-10.1); Chloride 103 mmol/L (98-107); Estimated GFR 87.50 (mL/min/1.73m2); Glucose 91 mg/dL (74-106); Magnesium 1.9 mg/dL (1.8-2.4); Potassium 4.0 mmol/L (3.5-5.1); Sodium 139 mmol/L (136-145); Total Protein 7.6 g/dL (6.4-8.2)
[2025-07-04 09:37] LABS: Vitamin B12 609 pg/mL (193-986)
[2025-07-04 09:38] LABS: Folate > 20.0 ng/mL (8.6-20.0)
[2025-07-06 16:16] LABS: Cystatin C, S 1.00 mg/L
[2025-07-06 18:05] LABS: Cephalosporium acremonium IgE <0.10 kU/L (<0.70)
[2025-07-07 14:54] LABS: Thiamine (Vitamin B1), WB 85 nmol/L (70-180)
[2025-07-08 16:36] LABS: Renin Activity, Plasma 13 ng/mL/h
[2025-07-13 11:49] LABS: Penicillin V IgE <0.10 kU/L (<0.70)
== END 2025-07-04 01:46 | disposition home or self-care (01) ==
PROVIDERS: Internal Medicine; PCP Naturopath; Visit Provider Naturopath
DX: I10 Essential (primary) hypertension (principal); E87.6 Hypokalemia
CPT/HCPCS: 36415; 80053; 82610; 83520; 86003; 87305; 81003; 82088; 82607; 82746; 83088; 83735; 83970; 84100; 84244; 84425

== ENCOUNTER 2025-07-04 07:31 | Outpatient (REF) | payer BC, SELFPAY ==
[2025-07-04 11:46] LABS: Creatinine,Urine 93.87 mg/dL; Sodium, Urine 75 mmol/L
[2025-07-04 11:50] LABS: Creatinine,24hr Ur 1.60 g/24hr (0.60-1.80); SAMPLE LIPEMIA CHECK 1715 ml; Total Volume 1715 ml
[2025-07-04 17:11] LABS: Chloride Urine 24hr 178 mmol/24hrs (110-250); Timed Urine Volume 1715 mL
[2025-07-05 09:32] LABS: Calcium Urine 13.7 mg/dL (See Note); Timed Urine Volume 1715 mL
== END 2025-07-04 07:32 | disposition home or self-care (01) ==
LOC: LBN 07:31
PROVIDERS: PCP Naturopath; Visit Provider Internal Medicine
DX: I10 Essential (primary) hypertension (principal); E87.6 Hypokalemia
CPT/HCPCS: 81050; 82340; 82436; 82570; 84133; 84300

== ENCOUNTER 2025-08-16 03:10 | Inpatient (IN) | payer BC, SELFPAY ==
[2025-08-16] VITALS (143 sets, daily range): BP systolic 90–151; BP diastolic 61–101; PULSE 49–166; RESP 9–36; TEMP 36–37.5; O2SAT 96–100
--- NOTE | 2025-08-16 03:00 | RT.EKG_ITS ---
APPROVED REPORT Exam: Resting ECG Reason for Exam: afib Patient Location: E HR:147 bpm ECG Measurements Heart Rate 147 AXIS NE [id number] P [id number] QRSd 88 QRS -3 QT 261 T 177 QTc 409 Conclusion Atrial fibrillation...V-rate 115-169, irreg A-activity Repol abnrm suggests ischemia, diffuse leads...ST-T neg, ant/lat/inf Physician: Mild st depression vs inclusion of u waves
--- NOTE | 2025-08-16 03:31 | W.ED.GENAD ---
Discharge Plan Disposition Patient Disposition: Admit to [facility] Condition: Stable Discharge Details Clinical Impression: Atrial fibrillation with RVR Primary Care Provider: Devi Reyes ED Provider: Jorge Redmond Home Meds and New Rx's Prescriptions: No Action spironolactone 50 mg tablet 100 mg PO DAILY vitamin K2 40 mcg Tablet 40 mcg PO DAILY magnesium glycinate 100 mg Tablet 200 mg PO BID cholecalciferol (vitamin D3) 10,000 unit Tablet 10,000 unit PO DAILY potassium 99 mg Tablet 198 mg PO QID losartan 100 mg tablet 50 mg PO DAILY Patient Comments: TAKE ONE TABLET BY MOUTH EVERY MORNING (DME) Dexcom G7 Sensor Device MISCELLANEOUS Patient Comments: USE EVERY 10 DAYS DIRECTED potassium chloride 20 mEq tablet,ER particles/crystals 20 meq PO TID Patient Comments: TAKE ONE TABLET BY MOUTH THREE TIMES A DAY WITH FOOD Zepbound 5 mg/0.5 mL pen injector 5 mg SUBCUT .qweekly Patient Comments: INJECT 5MG SUBCUTANEOUSLY ONCE WEEKLY HPI General Date/Time Provider Initiated Documentation: 08/16/25 03:10. 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 pylori, who presents today for rapid heart rate. Patient states that for the last few days she has had recent and fairly recurrent diarrhea. No blood in the stool. No foreign travel, no recent antibiotics except for the treatment for H. pylori which was back in the summer/March. She states that this morning she woke up at 2:30 AM with sensation of rapid heart rate. She came to the ER for further assessment after she noted her heart rate to be above 150. She denies any chest pain, but does admit to some reflux-like symptoms. She denies fever or chills. No other complaints at this time. She denies tearing or ripping sensation. No pleuritic chest pain. Related Data Home Medications Medication Instructions Recorded Confirmed cholecalciferol (vitamin D3) 250 10,000 unit PO DAILY 01/27/19 08/16/25 mcg (10,000 unit) tablet magnesium glycinate 100 mg (as 200 mg PO BID 01/27/19 08/16/25 glycinate) tablet vitamin K2 40 mcg tablet 40 mcg PO DAILY 01/27/19 08/16/25 potassium 99 mg tablet 198 mg PO QID 04/20/21 08/16/25 spironolactone 50 mg tablet 100 mg PO DAILY 08/16/21 08/16/25 blood-glucose sensor (Dexcom G7 07/06/24 08/16/25 Sensor device) losartan 100 mg tablet 50 mg PO DAILY 07/06/24 08/16/25 potassium chloride 20 mEq 20 meq PO TID 06/12/25 08/16/25 tablet,extended release(part/cryst) tirzepatide (weight loss) 5 mg/0.5 5 mg subcut .qweekly 06/12/25 08/16/25 mL subcutaneous pen injector ([employer]) Allergies Allergy/AdvReac Type Severity Reaction Status Date / Time sulfamethoxazole (From Allergy Severe Anaphylaxsi Verified 08/16/25 03:22 Bactrim) s ciprofloxacin (From Cipro) Allergy Mild Anaphylaxis Verified 08/16/25 03:22 amiloride Allergy Unknown Unknown Verified 08/16/25 03:22 buspirone Allergy Unknown Unknown Verified 08/16/25 03:22 lisinopril Allergy Unknown Unknown Verified 08/16/25 03:22 contrast dye Allergy Intermediate nasal Uncoded 08/16/25 03:22 congestion / facial flushing and rash General Stated Complaint: Palpitatns RADHA: 3 Exam Narrative Exam Narrative: 1.Const: Well-nourished, Well-developed, appearing stated age 2.Eyes: PERRL, no conjunctival injection, and symmetrical lids. 3.ENT: Atraumatic external nose and ears. Moist MM. Neck: Symmetric, trachea midline, No thyromegaly. 4.CVS: +S1/S2, Peripheral pulses 2+ and equal in all extremities. Brisk capillary refill in all extremities. 5.RESP: Unlabored respiratory effort. Clear to auscultation bilaterally. No wheezes rales or rhonchi 6.GI: Soft, Nontender/Nondistended, No hepatosplenomegaly. No guarding or rebound. 7.MSK: Normocephalic/Atraumatic, Extremities w/o deformity or ttp No cyanosis or clubbing, Normal movement of all extremities 8.Skin: Warm, Dry. No rashes or lesions. 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 Sensation grossly intact, no focal neurologic deficits. 10.Psych: (AAO) x3. Appropriate mood and affect Course Vital Signs Vital signs: Vital Signs Temperature 36.1 C L 08/16/25 03:12 Pulse 147 H 08/16/25 03:12 Respiratory Rate 16 08/16/25 03:12 Blood Pressure 151/74 H 08/16/25 03:12 Pulse Oximetry 100 08/16/25 03:12 Temperature 36.1 C L 08/16/25 03:12 Temperature Source Tympanic 08/16/25 03:12 Pulse 147 H 08/16/25 03:12 Respiratory Rate 16 08/16/25 03:12 Blood Pressure 151/74 H 08/16/25 03:12 Blood Pressure Position Sitting 08/16/25 03:12 Pulse Oximetry 100 08/16/25 03:12 Oxygen Delivery Method Room Air 08/16/25 03:12 Oxygen Flow Rate 0 08/16/25 03:12 Medical Decision Making This is a 55-year-old female with a past medical history of paroxysmal atrial fibrillation often due to to hypokalemia, 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 pylori, who presents today for rapid heart rate. Patient states that for the last few days she has had recent and fairly recurrent diarrhea. No blood in the stool. No foreign travel, no recent antibiotics except for the treatment for H. pylori which was back in the summer/March. She states that this morning she woke up at 2:30 AM with sensation of rapid heart rate. She came to the ER for further assessment after she noted her heart rate to be above 150. She denies any chest pain, but does admit to some reflux-like symptoms. She denies fever or chills. No other complaints at this time. She denies tearing or ripping sensation. No pleuritic chest pain. Exam demonstrates well-appearing female, no acute distress, no hypotension. She does have heart rate in the 150s, EKG shows atrial fibrillation, questionable U waves versus mild ST depression. We will rehydrate, check for electrolyte abnormality, monitor closely and reassess. We will start oral Haldol. Patient has history of. We will give 15 of Cardizem, will rehydrate, monitor closely and reassess. No pleuritic chest pain to suggest PE. No tearing or ripping sensation to suggest dissection. I suspect dehydration from the diarrhea and potential electrolyte abnormality in conjunction with her history of A-fib is likely brought about symptoms. 5:24 AM Laboratory workup is returned, no white count bandemia or left shift. Electrolytes are all relatively stable. Potassium is 3.9. She has already received 40 of oral potassium and 10 IV potassium. Will hold at this time. Magnesium normal. Initial troponin normal, proBNP normal but no signs of significant cardiac strain. TSH is elevated but free T4 is normal. She continues to deny any chest pain. She was given a GI cocktail and this resolved her reflux. She does now admit to a mild sensation in her chest, but is very clear that it is not pain, discomfort, tearing or ripping, sharp dull or achy. Additionally she also admits that over the last few months she has noticed some associated reflux when she has been exercising, but then it resolves she stops exercising and she rest. Suspect that this may be related to questionable cardiac ischemia. Patient has been given 3 doses of Cardizem, 15 mg, then 10, then 10. Heart rate remains in the 150s to 170s. We will start her on Cardizem drip, and plan for admission. Discussed the case with the hospitalist Dr. Burgess and he agrees. Although patient states that she is not supposed to be on any other additional medications, I did review notes from [facility] and including the appointment with Dr. Hopper cardiology. It does sound like they were discussing oral anticoagulation with her, however at the appointment on 09/21/2024 she preferred to continue to ponder whether or not to start that. She is supposed to be on a daily aspirin, but does not appear that she is taking it at this time. Will give aspirin currently. Plan for admission. I have extensively reviewed the treatment plan with the patient. I have addressed all patient concerns at this time. I have also discussed the plan with the admitting physician and they agree with the current assessment and plan and have agreed to assume responsibility for the patient. All parties demonstrate verbal understanding and agreement with our assessment and plan at this time. The documentation in this chart was dictated using [employer] dictation software. Please excuse any dictation errors. Critical Care Time Critical Care Time Critical Care Time: Yes Total Critical Care Time: 45 Attestation: Upon my evaluation, this patient had a high probability of imminent or life-threatening deterioration, which required my direct attention, intervention, and personal management. I have personally provided 45 minutes of critical care time exclusive of time spent on separately billable procedures. Time includes review of laboratory data, radiology results, discussion with consultants, and monitoring for potential decompensation. Interventions were performed as documented. [facility] All Active Problems (Updated 08/16/25 @ 05:28 by Jorge Redmond DO) Atrial fibrillation with RVR (Acute) Derangement of posterior horn of medial meniscus due to old tear or injury, right knee (Acute) Osteoarthritis of right knee (Acute) Diastasis of rectus abdominis (Acute) Foot pain, bilateral (Acute) Cervicalgia (Acute) Osteoporosis (Chronic) Heart murmur (Acute) Arthritis (Acute) Dizziness (Acute) Arm pain, left (Acute) Kidney stone on left side (Acute) Primary osteoarthritis of left knee (Acute) Synvisc injection: 01/01/2021 Basal cell carcinoma (Acute) nose, removed at [facility] derm December 2019 Saul's disease (Acute) Atypical chest pain (Acute) DVT prophylaxis (Acute) Obesity (Chronic) Anxiety (Chronic) Diet-controlled type 2 diabetes mellitus (Chronic) KARMEN (obstructive sleep apnea) (Chronic) Headache (Acute) Family history of early CAD (Acute) Internal derangement of right knee (Acute) Benign hypertension (Acute 05/24/13) Medical History Otalgia of both ears Paroxysmal A-fib GERD (gastroesophageal reflux disease) Surgical History Hx of colonoscopy Hx of salpingo-oophorectomy, bilateral H/O right wrist surgery S/P hysterectomy Partial 2017 Finished hysterectomy 05/2021 Cholecystectomy Family History Mother Heart disease [place] at 47 Diabetes Hypertension Breast cancer Anxiety Congestive heart failure Cataracts, bilateral Myocardial infarction Osteoporosis Arthritis GERD (gastroesophageal reflux disease) Maternal Grandmother Heart disease [place] @47 Diabetes Hypertension Breast cancer Arthritis Cancer Congestive heart failure Myocardial infarction Osteoporosis Maternal Aunt Heart disease sudden at 54 Maternal Grandfather Stroke Brother Stroke Father Substance abuse Social History Smoking/Tobacco Use Status: Former Tobacco Use Smoking risk assessment performed?: Yes Alcohol Intake: current Alcohol Intake frequency: holidays/special occasions only Drug use: Never Substance use type: does not use Housing: house Pets and animals: Yes (3 cats, 1 dog ) Pets and animals: cat(s) and dog(s) Current gender identity: female Do you feel safe at home: Yes Do you feel safe in your relationship?: Yes Female Reproductive History Menstrual Menopause type: surgical History History 3 Para 2 Hx # Term Pregnancies Multiple births Hx # Pregnancies Ectopic pregnancies AB induced Hx Number of Living Children AB spontaneous
[2025-08-16 03:36] LABS: Abs Immature Grans 0.01 10^3/uL (0.0-0.06); HCT 41.2 % (36.0-46.0); HGB 13.6 g/dL (11.2-15.7); Immature Grans % 0.1 %; MCH 29.2 pg (27.0-33.0); MCHC 33.0 % (32.0-36.0); MCV 88 fL (80-95); MPV 9.3 fL (8.0-11.0); Platelet Count 331 10^3/uL (130-400); RBC 4.66 10^6/uL (3.93-5.22); RDW 13.2 % (11.7-14.6); RDW-SD 42.9 fL; WBC 9.04 10^3/uL (4.4-10.8)
[2025-08-16] MEDS: Normal Saline 1,000 ML 1000 ML IV (03:40)
[2025-08-16] MEDS: dilTIAZem 25 MG/5 ML VIAL 15 MG IVP (03:42)
[2025-08-16] MEDS: Mylanta Suspension 30 ML CUP PO (03:47)
[2025-08-16] MEDS: Pantoprazole 40 MG VIAL IVP (03:48)
[2025-08-16] MEDS: POTASSIUM CHLORIDE 20 MEQ/100 ML BAG 50 MEQ IV_INF (03:49)
[2025-08-16 03:59] LABS: ALT 27 U/L (14-59); AST 17 U/L (15-37); Albumin 4.0 g/dL (3.4-5.0); Alkaline Phosphatase 116 U/L (46-116); Anion Gap 11.4 mmol/L (3-11); BUN 14 mg/dL (7-18); Bilirubin, Total 0.7 mg/dL (0.2-1.0); CO2 25.6 mmol/L (21.0-32.0); Calcium 9.6 mg/dL (8.5-10.1); Chloride 102 mmol/L (98-107); Glucose 99 mg/dL (74-106); Magnesium 2.0 mg/dL (1.8-2.4); Potassium 3.9 mmol/L (3.5-5.1); Sodium 139 mmol/L (136-145); Total Protein 8.0 g/dL (6.4-8.2)
[2025-08-16 04:04] LABS: TSH (W/Ref FT4) 4.29 uIU/mL (0.36-3.74); Troponin I 6 ng/L (<or=51)
[2025-08-16] MEDS: Potassium Chloride 20 MEQ TABCR 40 MEQ PO (04:08)
[2025-08-16] MEDS: dilTIAZem 25 MG/5 ML VIAL 10 MG IVP ×2 (04:09→05:12)
[2025-08-16 04:54] LABS: Troponin I 7 ng/L (<or=51)
[2025-08-16] MEDS: dilTIAZem 125 MG in Normal Saline 100 ML 10 MG IV (05:14)
[2025-08-16] MEDS: Aspirin 81 MG CHEW 324 MG CH (05:22)
--- NOTE | 2025-08-16 05:34 | HPE_ITS ---
Date of service: 08/16/25 Time of Service: 05:34 Assessment and Plan Assessment and plan (1) Atrial fibrillation with RVR: Status: Acute Assessment and plan: Her [id number] score is 3 on my estimation. Patient is indicated for anticoagulation. Will start her on Eliquis 5 mg p.o. twice daily. She will be admitted to the ICU on a Cardizem drip and will hopefully be able to to be switched over to orals. I will attempt to get her echocardiogram from [facility] or at least review it. If not we will need to send a record request. (2) Diet-controlled type 2 diabetes mellitus: Status: Chronic Assessment and plan: I will check an A1c. (3) Saul's disease: Status: Acute Assessment and plan: Will need outpatient follow-up. History of Present Illness History of Present Illness Chief Complaint: palpitations Narrative: Mrs Holley is a 55-year-old female with a known history of paroxysmal A-fib was woken up with palpitations around 2:00 in the morning. Patient came into the ED where she was noted to have A-fib with RVR and despite multiple doses of Cardizem continue to have an elevated heart rate. At around 515 this morning I was called for admission as patient will need to be on a Cardizem drip and be admitted to the ICU. Per my discussion with Mrs. Holley she states she she usually feels palpitations and takes potassium and magnesium and states that this is generally enough to make her symptoms go away. She does follow with cardiology and has had an echocardiogram which was reported as being done approximately 3 months ago. Patient states she also had a stress test within the past but does not remember the results exactly. Her didactic program in dietetics director did recommend a cardiac cath but this was denied by her insurance company. Patient does have a strong family history of heart disease with multiple relatives dying before the age of 50 from heart attacks. Patient denies significant amount of caffeine, denies alcohol use, denies any other intravenous drug use. in reviewing the patient's medical record and her med list, she is not on a beta- vicenta or aspirin. The patient does take losartan, spironolactone, and Zepbound. In reviewing her labs her TSH is 4.29 with a free T4 of 0.98. Her BNP is 37. EKG shows A-fib with RVR there does appear to be some ST depression in V3 V4 primarily. In reviewing her most recent EKG, this depression is not present on the EKG on 06/12/2025. Her last encounter with our hospital system was on of this month at which time she was evaluated for chest pain. At that time she states that her potassium supplementation and coconut water made her feel better and she was going to follow-up with her PCP and didactic program in dietetics director. Review of Systems Narrative: Multiple episodes of diarrhea. She is also being worked up for possible primary hyperaldosteronism. She does have a history of Saul's thyroiditis but is not on any medication PFSH All Active Problems (Updated 08/16/25 @ 05:28 by Jorge Redmond DO) Atrial fibrillation with RVR (Acute) Derangement of posterior horn of medial meniscus due to old tear or injury, right knee (Acute) Osteoarthritis of right knee (Acute) Diastasis of rectus abdominis (Acute) Foot pain, bilateral (Acute) Cervicalgia (Acute) Osteoporosis (Chronic) Heart murmur (Acute) Arthritis (Acute) Dizziness (Acute) Arm pain, left (Acute) Kidney stone on left side (Acute) Primary osteoarthritis of left knee (Acute) Synvisc injection: 01/01/2021 Basal cell carcinoma (Acute) nose, removed at [facility] derm December 2019 Saul's disease (Acute) Atypical chest pain (Acute) DVT prophylaxis (Acute) Obesity (Chronic) Anxiety (Chronic) Diet-controlled type 2 diabetes mellitus (Chronic) KARMEN (obstructive sleep apnea) (Chronic) Headache (Acute) Family history of early CAD (Acute) Internal derangement of right knee (Acute) Benign hypertension (Acute 05/24/13) Medical History Otalgia of both ears Paroxysmal A-fib GERD (gastroesophageal reflux disease) Surgical History Hx of colonoscopy Hx of salpingo-oophorectomy, bilateral H/O right wrist surgery S/P hysterectomy Partial 2017 Finished hysterectomy 05/2021 Cholecystectomy Family History Mother Heart disease [place] at 47 Diabetes Hypertension Breast cancer Anxiety Congestive heart failure Cataracts, bilateral Myocardial infarction Osteoporosis Arthritis GERD (gastroesophageal reflux disease) Maternal Grandmother Heart disease [place] @47 Diabetes Hypertension Breast cancer Arthritis Cancer Congestive heart failure Myocardial infarction Osteoporosis Maternal Aunt Heart disease sudden at 54 Maternal Grandfather Stroke Brother Stroke Father Substance abuse Social History Smoking/Tobacco Use Status: Former Tobacco Use Smoking risk assessment performed?: Yes Alcohol Intake: current Alcohol Intake frequency: holidays/special occasions only Drug use: Never Substance use type: does not use Housing: house Pets and animals: Yes (3 cats, 1 dog ) Pets and animals: cat(s) and dog(s) Current gender identity: female Do you feel safe at home: Yes Do you feel safe in your relationship?: Yes Female Reproductive History Menstrual Menopause type: surgical History History 2 3 Para 2 Hx # Term Pregnancies Multiple births Hx # Pregnancies Ectopic pregnancies AB induced Hx Number of Living Children AB spontaneous Meds Allergies and Home Medications Allergies Allergy/AdvReac Type Severity Reaction Status Date / Time sulfamethoxazole (From Allergy Severe Anaphylaxsi Verified 08/16/25 03:22 Bactrim) s ciprofloxacin (From Cipro) Allergy Mild Anaphylaxis Verified 08/16/25 03:22 amiloride Allergy Unknown Unknown Verified 08/16/25 03:22 buspirone Allergy Unknown Unknown Verified 08/16/25 03:22 lisinopril Allergy Unknown Unknown Verified 08/16/25 03:22 contrast dye Allergy Intermediate nasal Uncoded 08/16/25 03:22 congestion / facial flushing and rash Home Medications Medication Instructions Recorded Confirmed Type cholecalciferol (vitamin D3) 250 10,000 unit PO DAILY 01/27/19 08/16/25 History mcg (10,000 unit) tablet magnesium glycinate 100 mg (as 200 mg PO BID 01/27/19 08/16/25 History glycinate) tablet vitamin K2 40 mcg tablet 40 mcg PO DAILY 01/27/19 History potassium 99 mg tablet 198 mg PO QID 04/20/2108/16 History spironolactone 50 mg tablet 100 mg PO DAILY 08/16/21 1 History blood-glucose sensor (DexPockit G7 07/06/24 08/16/25 His tory Sensor device) losartan 100 mg tablet 50 mg PO DAILY 07/06/2407/21 History potassium chloride 20 mEq 20 meq PO TID 06/12/2508/16 History tablet,extended release(part/cryst) tirzepatide (weight loss) 5 mg/0.5 5 mg subcut .qweekl y 06/12/25 08/16/25 History mL subcutaneous pen injector (Zepbound) Exam Narrative Exam Narrative: HEENT normocephalic atraumatic mucous membranes moist oropharynx is clear Neck no lymphadenopathy no JVD no thyromegaly Cardiovascular irregular irregular tachycardic Lungs clear to auscultation bilaterally good air exchange no ip technology 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 muscle use Abdomen protuberant Extremities no sinus clubbing or edema bilaterally Neurologic nonfocal Psych alert and oriented x 3 Results Labs 08/16/25 03:16 08/16/25 03:16 Labs: Laboratory Results - last 24 hr 08/16/25 08/16/25 03:16 04:18 WBC 9.04 RBC 4.66 Hgb 13.6 Hct 41.2 MCV 88 MCH 29.2 MCHC 33.0 RDW 13.2 Plt Count 331 MPV 9.3 Immature Gran % 0.1 Neutrophils % 35.3 Lymphocytes % 52.9 Monocytes % 8.8 Eosinophils % 2.3 Basophils % 0.6 Nucleated RBC % 0.0 Absolute Neutrophils 3.19 Absolute Lymphocytes 4.78 H Absolute Monocytes 0.80 Absolute Eosinophils 0.21 Absolute Basophils 0.05 Sodium 139 Potassium 3.9 Chloride 102 Carbon Dioxide 25.6 Anion Gap 11.4 H BUN 14 Creatinine 0.9 Est GFR (CKD-EPI 2020) 75.97 Glucose 99 Calcium 9.6 Magnesium 2.0 Total Bilirubin 0.7 AST 17 ALT 27 Alkaline Phosphatase 116 Troponin I 6 7 NT-Pro-B Natriuret Pep 37 Total Protein 8.0 Albumin 4.0 TSH 4.29 H Free T4 0.98 Last Vital Signs Temp 36.1 C L 08/16/25 03:12 Pulse 134 H 08/16/25 05:20 Resp 32 H 08/16/25 05:20 BP 103/61 08/16/25 05:19 Pulse Ox 99 08/16/25 05:20 Time Spent Time spent with Patient: 40-54 minutes Time was spent: preparing to see the patient(eg.review tests), obtaining and/or reviewing separately otained hiistory, ordering medications,tests, procedures, referring, communicating with other health care advocate, indepentently interpreting results, counseling the patient and care coordination
[2025-08-16 05:50] LABS: Anion Gap 7.9 mmol/L (3-11); BUN 12 mg/dL (7-18); CO2 26.1 mmol/L (21.0-32.0); Calcium 9.2 mg/dL (8.5-10.1); Chloride 106 mmol/L (98-107); Glucose 97 mg/dL (74-106); Potassium 4.2 mmol/L (3.5-5.1); Sodium 140 mmol/L (136-145)
[2025-08-16 06:48] LABS: Troponin I 12 ng/L (<or=51)
[2025-08-16] MEDS: Spironolactone 50 MG TAB 100 MG PO (07:51)
[2025-08-16] MEDS: Apixaban 5 MG TAB PO ×2 (07:52→19:33)
[2025-08-16] MEDS: Losartan 50 MG TAB PO (07:52)
[2025-08-16] MEDS: Potassium Chloride 20 MEQ TABCR PO ×3 (07:52→19:33)
[2025-08-16] MEDS: Normal Saline Flush 10 ML SYR IVP ×2 (07:53→19:34)
[2025-08-16] MEDS: Amiodarone in Dextrose 360 MG/200 ML BAG 900 MG IV INF (08:42)
--- NOTE | 2025-08-16 08:47 | INITIAL_ITS ---
Date of service: 08/16/25 Time of Service: 08:47 Care Management Initial Assmt Initial Assessment Reason for Hospitalization: atrial fib with RVR Functional Status/Living Situation Patient Presentation: Jimena was sitting up in bed when CM met with her. She informed CM that her afib had just broken and that she back in normal sinus rhythm. She also stated that she was really tired. Jimena shared that she thinks she may be able to go home tomorrow if her rhythm and rate remain stable. Jimena lives in a single family home in [place] with her jac. All together they have 5 children; 4 live in [place] and one son lives in [place]. 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. She is independent at baseline and does not receive any community services. Town of Residence: [place] Resides with: Spouse (Jac) Significant Other/Family: [facility] Employment Status: Employed ([employer]) Instrumental Activities of Daily Living (ADLs): Independent Medications Medication Management: No Issues/Barriers identified Physical Functioning/Mobility Assistive Device: none Advance Directives Advance Directives: Do you have an Advance Directive: N , 12:15 AD On File at [facility]: N 05/30/23, 12:15 Date Asked 08/16/25 Today, 03:12 AD Date Reviewed COLST On File at [facility] COLST Date Scanned Code Status Resuscitation Status Full Code Insurance Coverage/Financial Issues Insurance: BC/BS Care Team Visit Care Team Role Provider Type Jeffrey Hairston MD MD [facility] STAFF PHYSICIAN Devi Reyes Primary Care Provider NATUROPATHIC DOCTOR Jorge Redmond DO Emergency Provider [facility] STAFF PHYSICIAN Omar Burgess MD Admit Provider [facility] STAFF PHYSICIAN Attending Provider Discharge Potential Discharge Needs: PCP F/U Appt Anticipated Barriers to Discharge: None Identified Patient/Family Education Needs: Review discharge instructions, discuss Ask Me Three Transportation: Private vehicle Plan: Anticipate Jimena will be discharged home with no new services when medically cleared. She will follow up with both her Clinical Trials Nurse and her PCP and will transport with family. CM will follow and continue to asssess for discharge needs. Social Determinants of Health Screening Social Determinants of health last assessed in clinic: 08/16/25 Will the Patient Participate in the Screening?: Yes Do you worry about having a steady place to live?: no Problems where you live: no known problems In the past 12 months, have you had to go without electric, gas, oil or water in your home?: no 1. Within the past 12 months, we worried whether our food would run out before we got money to buy more.: Never true 2. Within the past 12 months, the food we bought just didn't last and we didn't have money to get more.: Never true Has lack of transportation kept you from medical appointments or from doing things needed for daily living?: no Has anyone in your life made you feel unsafe or unsupported?: no How hard is it for you to pay for the very basics like food, housing, medical care, and heating? Would you say it is:: Not hard at all Do you want help finding or keeping work or a job?: I do not need or want help If for any reason you need help with day-to-day activities such as bathing, preparing meals, shopping, managing finances, etc., do you get the help you need?: I don’t need any help How often do you feel lonely or isolated from those around you?: Never Do you speak a language other than Kazakh at home?: No Does the patient want assistance with any of the above?: No PFSH All Active Problems (Updated 08/16/25 @ 05:28 by Jorge Redmond DO) Atrial fibrillation with RVR (Acute) Derangement of posterior horn of medial meniscus due to old tear or injury, right knee (Acute) Osteoarthritis of right knee (Acute) Diastasis of rectus abdominis (Acute) Foot pain, bilateral (Acute) Cervicalgia (Acute) Osteoporosis (Chronic) Heart murmur (Acute) Arthritis (Acute) Dizziness (Acute) Arm pain, left (Acute) Kidney stone on left side (Acute) Primary osteoarthritis of left knee (Acute) Synvisc injection: 01/01/2021 Basal cell carcinoma (Acute) nose, removed at [facility] derm December 2019 Saul's disease (Acute) Atypical chest pain (Acute) DVT prophylaxis (Acute) Obesity (Chronic) Anxiety (Chronic) Diet-controlled type 2 diabetes mellitus (Chronic) KARMEN (obstructive sleep apnea) (Chronic) Headache (Acute) Family history of early CAD (Acute) Internal derangement of right knee (Acute) Benign hypertension (Acute 05/24/13) Medical History Otalgia of both ears Paroxysmal A-fib GERD (gastroesophageal reflux disease) Surgical History Hx of colonoscopy Hx of salpingo-oophorectomy, bilateral H/O right wrist surgery S/P hysterectomy Partial 2017 Finished hysterectomy 05/2021 Cholecystectomy Family History Mother Heart disease MS at 47 Diabetes Hypertension Breast cancer Anxiety Congestive heart failure Cataracts, bilateral Myocardial infarction Osteoporosis Arthritis GERD (gastroesophageal reflux disease) Maternal Grandmother Heart disease MS @47 Diabetes Hypertension Breast cancer Arthritis Cancer Congestive heart failure Myocardial infarction Osteoporosis Maternal Aunt Heart disease sudden at 54 Maternal Grandfather Stroke Brother Stroke Father Substance abuse Social History Smoking/Tobacco Use Status: Former Tobacco Use Smoking risk assessment performed?: Yes Alcohol Intake: current Alcohol Intake frequency: holidays/special occasions only Drug use: Never Substance use type: does not use Housing: house Pets and animals: Yes (3 cats, 1 dog ) Pets and animals: cat(s) and dog(s) Current gender identity: female Do you feel safe at home: Yes Do you feel safe in your relationship?: Yes Female Reproductive History Menstrual Menopause type: surgical History History 3 Para 2 Hx # Term Pregnancies Multiple births Hx # Pregnancies Ectopic pregnancies AB induced Hx Number of Living Children AB spontaneous
[2025-08-16 09:33] LABS: EPI 027-NAP1-B1 PRESUMPTIVE NEGATIVE
[2025-08-16] MEDS: LORazepam 1 MG TAB PO (09:36)
--- NOTE | 2025-08-16 11:30 | RT.EKG_ITS ---
APPROVED REPORT Exam: Resting ECG Reason for Exam: nsr on tele Patient Location: I HR:62 bpm ECG Measurements Heart Rate 62 AXIS NV 167 P 41 QRSd 105 QRS -11 QT 394 T 4 QTc 400 Conclusion Sinus rhythm...normal P axis, V-rate 50- 99 Low voltage, precordial leads...precordial leads <1.0mV
--- NOTE | 2025-08-16 13:52 | PHA.REVIEW2 ---
Pharmacy Admission Review Admission Clinical Review Admission Pharmacy Review: Atrial fibrillation with RVR (Acute) Saul's disease (Acute) sulfamethoxazole (From Bactrim) Allergy (Severe, Verified 08/16/25 03:22) Anaphylaxsis ciprofloxacin (From Cipro) Allergy (Mild, Verified 08/16/25 03:22) Anaphylaxis amiloride Allergy (Unknown, Verified 08/16/25 03:22) Unknown buspirone Allergy (Unknown, Verified 08/16/25 03:22) Unknown lisinopril Allergy (Unknown, Verified 08/16/25 03:22) Unknown contrast dye Allergy (Intermediate, Uncoded 08/16/25 03:22) nasal congestion / facial flushing and rash Resuscitation Status Full Code Height 5 ft 6 in Weight 139.5 kg Pharmacy Admission Review Renal Dosing Renal Dosing: BUN 12 mg/dL (7-18) 08/16/25 05:30 Creatinine 0.8 mg/dL (0.55-1.02) 08/16/25 05:30 Medications needing adjustments: Reviewed (CrCl 115.94 mL/min) List of meds needing interventions: Current medications are okay Anticoagulation Anticoagulation: Hgb 13.6 g/dL (11.2-15.7) 08/16/25 03:16 Hct 41.2 % (36.0-46.0) 08/16/25 03:16 Plt Count 331 10^3/uL (130-400) 08/16/25 03:16 Creatinine 0.8 mg/dL (0.55-1.02) 08/16/25 05:30 DVT Prophylaxis: Reviewed Medications: Apixaban (5mg PO BID) Relevant Labs Relevant Labs: Sodium 140 mmol/L (136-145) 08/16/25 05:30 Potassium 4.2 mmol/L (3.5-5.1) 08/16/25 05:30 Chloride 106 mmol/L (98-107) 08/16/25 05:30 Magnesium 2.0 mg/dL (1.8-2.4) 08/16/25 03:16 Electrolytes, C-Reactive P, ESR: Reviewed DM Control DM Control: Glucose 97 mg/dL (74-106) 08/16/25 05:30 DM Control: Reviewed Insulin Dosing, Diabetic Medication: T2DM listed in patients chart, no medications ordered Cardiac Review Cardiac Review: Troponin I 12 ng/L (<or=51) 08/16/25 06:18 NT-Pro-B Natriuret Pep 37 pg/mL (<300) 08/16/25 03:16 Blood Pressure 111/95 1200 Blood Pressure 103/83 1102 Blood Pressure 118/94 1000 Blood Pressure 110/92 0900 Blood Pressure 117/87 0854 Blood Pressure 101/70 0701 Blood Pressure 118/90 0616 Blood Pressure 95/77 0610 Blood Pressure 106/65 0546 BP, HR, EF%: Reviewed (HR WNL) List meds needing interventions: has orders for losartan 50mg daily and spironolactone 100mg daily. Patient currently has an order for amiodarone infusion (paused at 1145). QTc Review QTc: Reviewed (400 from 08/16/25) IV to PO Switch IV Medications: Reviewed (amiodarone infusion) Home Meds Home Med List reviewed: Intervened Relevent Home Meds Not ordered & why?: Losartan listed on home med list as 50mg daily, most recently filled a prescription for 75mg daily. Asked nurse to check dose with patient - waiting to hear back Asked nurse to verify what dose of vitamin D patient takes at home, currently says 32828 units daily? Waiting to hear back Asked nurse what day of the week patient uses Zepbound. Waiting to hear back. Changed the following to patients own orders (non-formulary): potassium 99mg tablet, magnesium glycinate and vitamin K2 40mcg. Told nurse these will have to be brought in from home if patient wants to take while inpatient Current Meds Current Medication Order Review: Intervened Comments: Changed IV ED access order Provider ordered an amiodarone 150mg IVP now one order in addition to the amiodarone infusion order. Reached out to provider as the infusion order already has a 150mg bolus in the protocol and was unsure if they wanted to give another one. Per provider only wanted one bolus, canceled the now one order.
--- NOTE | 2025-08-16 15:39 | CHAPLAIN ---
Jimena and I met a while ago when her mother in law was here for end of life care on Med/Surg. Jimena and her Wilmar provided a lot of support for Wilmar's mom and dad. His mom was here on comfort measures for several days. Philippyoel said she has had AFib in the past for half an hour or so, and this time it lasted hours, so she came to the ED. She is feeling better now. 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 Wilmar was with her through the night, until this morning and will return this evening.
--- NOTE | 2025-08-16 17:05 | W.PM.PROGNOT ---
Date of Service Date of service: 08/16/25 Time of Service: 08:00 Assessment and Plan Assessment and plan (1) Atrial fibrillation with RVR: Status: Acute Assessment and plan: Her [id number] score is 3 on my estimation. Patient is indicated for anticoagulation. Will start her on Eliquis 5 mg p.o. twice daily. She will be admitted to the ICU on a Cardizem drip and will hopefully be able to to be switched over to orals. I will attempt to get her echocardiogram from [facility] or at least review it. If not we will need to send a record request. Aug 16: HR in the 180's - 200's after diltiazem drip overnight. Started amiodarone IV load. Converted to NSR within a little over an hour, drip discontinued. Discussed with [facility] cardiology, will finish amiodarone loading course via PO and discharge on maintenance with close cardiology followup. (2) Diet-controlled type 2 diabetes mellitus: Status: Chronic Assessment and plan: Outpatient followup (3) Saul's disease: Status: Acute Assessment and plan: Will need outpatient follow-up. Subjective Subjective Interval history since last seen: Mrs. Holley is resting comfortably with at bedside. She is anxious about her new heart problem and its treatment. She has concerns about how the afib medications will conflict with planned workup for adrenal issues. Exam Narrative Exam Narrative: General: This is a pleasant, obese, woman in bed, anxious HEENT: Normocephalic, atraumatic CV: RRR Resp: CTAB Abd: soft, NTND MSK: voluntary motion x4 Neuro: awake, alert, no focal deficits Objective Last Vital Signs Temp 36.0 C L 08/16/25 15:28 Pulse 69 08/16/25 16:00 Resp 19 08/16/25 16:40 BP 103/70 08/16/25 16:00 Pulse Ox 97 08/16/25 07:01 Laboratory Results - last 24 hr 08/16/25 08/16/25 08/16/25 03:16 04:18 05:30 WBC 9.04 RBC 4.66 Hgb 13.6 Hct 41.2 MCV 88 MCH 29.2 MCHC 33.0 RDW 13.2 Plt Count 331 MPV 9.3 Immature Gran % 0.1 Neutrophils % 35.3 Lymphocytes % 52.9 Monocytes % 8.8 Eosinophils % 2.3 Basophils % 0.6 Nucleated RBC % 0.0 Absolute Neutrophils 3.19 Absolute Lymphocytes 4.78 H Absolute Monocytes 0.80 Absolute Eosinophils 0.21 Absolute Basophils 0.05 Sodium 139 140 Potassium 3.9 4.2 Chloride 102 106 Carbon Dioxide 25.6 26.1 Anion Gap 11.4 H 7.9 BUN 14 12 Creatinine 0.9 0.8 Est GFR (CKD-EPI 2020) 75.97 87.50 Glucose 99 97 Calcium 9.6 9.2 Magnesium 2.0 Total Bilirubin 0.7 AST 17 ALT 27 Alkaline Phosphatase 116 Troponin I 6 7 NT-Pro-B Natriuret Pep 37 Total Protein 8.0 Albumin 4.0 TSH 4.29 H Free T4 0.98 Stl C.difficile Tox PCR 08/16/25 08/16/25 06:18 08:38 WBC RBC Hgb Hct MCV MCH MCHC RDW Plt Count MPV Immature Gran % Neutrophils % Lymphocytes % Monocytes % Eosinophils % Basophils % Nucleated RBC % Absolute Neutrophils Absolute Lymphocytes Absolute Monocytes Absolute Eosinophils Absolute Basophils Sodium Potassium Chloride Carbon Dioxide Anion Gap BUN Creatinine Est GFR (CKD-EPI 2020) Glucose Calcium Magnesium Total Bilirubin AST ALT Alkaline Phosphatase Troponin I 12 NT-Pro-B Natriuret Pep Total Protein Albumin TSH Free T4 Stl C.difficile Tox PCR Negative Time Spent with Patient Time Spent with Patient: 35-49 minutes Time was spent: preparing to see the patient(eg.review tests), obtaining and/or reviewing separately otained hiistory, ordering medications,tests, procedures, referring, communicating with other health career and guidance counselor, indepentently interpreting results, counseling the patient and care coordination
[2025-08-16] MEDS: Amiodarone 200 MG TAB 400 MG PO (18:09)
--- NOTE | 2025-08-16 18:53 | RESPIRATORY ---
Pt's own home unit. Constant Pressure: 5cmH2O No O2 bleed in Nasal pillows: Medium DME: [facility]
[2025-08-17] VITALS (23 sets, daily range): BP systolic 94–132; BP diastolic 66–87; PULSE 56–75; RESP 13–26; TEMP 35.9–36.9; O2SAT 99
[2025-08-17] MEDS: Amiodarone 200 MG TAB 400 MG PO ×2 (01:02→09:13)
[2025-08-17] MEDS: Normal Saline Flush 10 ML SYR IVP ×2 (06:07→07:56)
[2025-08-17 07:06] LABS: Abs Immature Grans 0.02 10^3/uL (0.0-0.06); HCT 41.0 % (36.0-46.0); HGB 13.7 g/dL (11.2-15.7); Immature Grans % 0.3 %; MCH 30.0 pg (27.0-33.0); MCHC 33.4 % (32.0-36.0); MCV 90 fL (80-95); MPV 9.9 fL (8.0-11.0); Platelet Count 298 10^3/uL (130-400); RBC 4.57 10^6/uL (3.93-5.22); RDW 13.4 % (11.7-14.6); RDW-SD 44.1 fL; WBC 7.47 10^3/uL (4.4-10.8)
[2025-08-17 07:27] LABS: ALT 23 U/L (14-59); AST 14 U/L (15-37); Albumin 3.6 g/dL (3.4-5.0); Alkaline Phosphatase 106 U/L (46-116); Anion Gap 9.1 mmol/L (3-11); BUN 14 mg/dL (7-18); Bilirubin, Total 0.6 mg/dL (0.2-1.0); CO2 25.9 mmol/L (21.0-32.0); Calcium 8.7 mg/dL (8.5-10.1); Chloride 104 mmol/L (98-107); Glucose 93 mg/dL (74-106); Potassium 4.3 mmol/L (3.5-5.1); Sodium 139 mmol/L (136-145); Total Protein 7.5 g/dL (6.4-8.2)
[2025-08-17] MEDS: Potassium Chloride 20 MEQ TABCR PO (07:55)
[2025-08-17] MEDS: Apixaban 5 MG TAB PO (07:55)
[2025-08-17] MEDS: Spironolactone 50 MG TAB 100 MG PO (07:56)
[2025-08-17] MEDS: Losartan 50 MG TAB PO (08:21)
--- NOTE | 2025-08-17 09:35 | W.NUTRFU ---
Date of service: 08/17/25 Time of Service: 09:35 Nutrition Note NOTE: Jimena being treated in the ICU for Afib with RVR. Hx of DMII, class III obesity. A1c was 5.9% last December - controlled with diet and has lost some weight on Zepbound. Takes D3 K2 magnesium, KCl at robbin. Spironolactone for HTN. Good po and glucose at target (93 this morning for FPG). Unable to meet with patient today but will visit tomorrow to offer outpatient MNT if she feels she would benefit. Will continue to monitor - offer low kcal, high protein ONS if desired. Time Spent in Nutritional Counseling and Treatment: 0
--- NOTE | 2025-08-17 09:56 | W.PM.DS.N ---
Date of service: 08/17/25 Time of Service: 08:30 DS: Diagnosis Discharge Diagnosis (1) Atrial fibrillation with RVR: Status: Acute Asessment and Plan: Admitted to ICU for diltiazem drip and close cardiac monitoring. Initially rate controlled on diltiazem, but in the morning rates increased to 180's - 200's. She was given a single dose of valium for anxiety Stopped diltiazem in favor of amiodarone drip She converted to NSR after about 300 mg IV She is now on loading amiodarone regimen which reaches 6g at the end of the day August 20 August 21 start amiodarone 200 mg daily She has been started on apixaban 5 mg BID to continue indefinitely for stroke prevention Recommend close cardiology followup (2) Diet-controlled type 2 diabetes mellitus: Status: Chronic Asessment and Plan: Outpatient followup (3) Saul's disease: Status: Acute Asessment and Plan: Outpatient followup Discharge Plan Disposition Patient Disposition: Home Condition: Good Discharge Details Reason For Visit: AFIB with RVR Admit Date/Time: 08/16/25 05:29 Admit Provider: Omar Burgess Attending Provider: Omar Burgess Primary Care Provider: Devi Reyes [facility] Course Hospital Course: Jimena Holley is a 55 year old woman presenting August 16 with palpitations. She was found to be in atrial fibrillation with rapid ventricular response. She had previously been diagnosed with afib; she had not started medication for it. In the hospital she was treated with diltiazem on a drip, which initially controlled her heart rate. However on hospital day 2 her heart rates went into the 180's - 200's. Diltiazem was discontinued and she was started on an amiodarone drip, with good result. She is now on an oral amiodarone load through August 20, and will continue with a daily pill until she sees her circulation worker. She has been started on apixaban 5 mg BID as well. On day of discharge she feels well and is safe to return home with her . Home Meds and New Rx's Prescriptions: New amiodarone 200 mg Tablet 400 mg PO Q8H Qty: 60 0RF Rx Instructions: Take 400 mg every 8 hours through August 20 (eleven doses of 400 mg). Nov 2 start 200 mg daily. Eliquis 5 mg Tablet 5 mg PO BID Qty: 60 3RF Continued vitamin K2 40 mcg Tablet 40 mcg PO DAILY magnesium glycinate 100 mg Tablet 200 mg PO BID cholecalciferol (vitamin D3) 10,000 unit Tablet 10,000 unit PO DAILY potassium 99 mg Tablet 198 mg PO QID losartan 100 mg tablet 50 mg PO DAILY Patient Comments: TAKE ONE TABLET BY MOUTH EVERY MORNING (DME) Dexcom G7 Sensor Device MISCELLANEOUS Patient Comments: USE EVERY 10 DAYS DIRECTED spironolactone 100 mg tablet 100 mg PO DAILY Patient Comments: TAKE ONE TABLET BY MOUTH EVERY DAY potassium chloride 20 mEq tablet,ER particles/crystals 20 meq PO TID Patient Comments: TAKE ONE TABLET BY MOUTH THREE TIMES A DAY WITH FOOD Zepbound 5 mg/0.5 mL pen injector 5 mg SUBCUT .qweekly Patient Comments: INJECT 5MG SUBCUTANEOUSLY ONCE WEEKLY Discharge Instructions Instructions: Atrial Fibrillation (DC) Activity:: Activity as Tolerated Equipment/Supplies:: No Equipment Needed Diet:: As Tolerated DS: Summary Time Spent with Patient providing and/or coordinating discharge services: Greater than 30 minutes Status at Discharge Functional status at discharge: independent ambulation Overall status at discharge: patient is back to baseline Mental Status: mental status grossly normal Speech and Movement: speech and movement normal Mood: congruent mood Affect: normal affect Exam Narrative Exam Narrative: General: This is a pleasant, obese, woman in bed, anxious HEENT: Normocephalic, atraumatic CV: RRR Resp: CTAB Abd: soft, NTND MSK: voluntary motion x4 Neuro: awake, alert, no focal deficits Psych Mental Status: mental status grossly normal Speech and Movement: speech and movement normal Mood: congruent mood Affect: normal affect DS: Data Vitals/I&O Vitals and I&O: Vital Signs Temperature 36.5 C 08/17/25 07:03 Temperature Source Temporal Artery Scan 08/17/25 07:03 Pulse 64 08/17/25 09:00 Pulse 63 08/17/25 09:00 Respiratory Rate 15 08/17/25 09:00 Respiratory Effort Normal 08/16/25 06:10 Respiratory Depth Normal 08/16/25 06:10 Respiratory Pattern Normal 08/16/25 06:10 Blood Pressure 114/80 08/17/25 09:00 Blood Pressure Mean 91 08/17/25 09:00 Blood Pressure Position Supine 08/16/25 06:10 Pulse Oximetry 99 08/17/25 07:03 Oxygen Delivery Method Room Air 08/17/25 07:03 Oxygen Flow Rate 0 08/17/25 07:03 Fraction of Inspired Oxygen (FIO2) 21 08/17/25 04:20 Pain Level 0 08/16/25 06:10 Comment cuff on R forearm 08/16/25 06:10 Comment prior to my shift 08/17/25 06:01 Intake & Output 08/16/25 08/16/25 08/17/25 11:59 23:59 11:59 Intake Total 1617.583 / 2057.583 440 / 2057.583 1250 / 1250 Output Total 725 / 1675 950 / 1675 300 / 300 Balance 892.583 / 382.583 -510 / 382.583 950 / 950 Weight 139.5 kg 139.3 kg Intake: IV 1317.583 / 1317.583 Oral 300 / 740 440 / 740 1250 / 1250 Output: Urine 725 / 1675 950 / 1675 300 / 300 Other: Urine Color Yellow Yellow Yellow Urine Appearance Clear Clear Clear Urine Odor None Normal Comment Hysterectomy: Partial in 2019, completed 2020 Stool Size Moderate Moderate Stool Characteristics Soft Soft Hard Formed Brown Brown Data Completed and Pending Pending Labs at Discharge: 08/16/25 08/16/25 08/16/25 03:16 04:18 05:30 WBC 9.04 RBC 4.66 Hgb 13.6 Hct 41.2 MCV 88 MCH 29.2 MCHC 33.0 RDW 13.2 Plt Count 331 MPV 9.3 Immature Gran % 0.1 Neutrophils % 35.3 Lymphocytes % 52.9 Monocytes % 8.8 Eosinophils % 2.3 Basophils % 0.6 Nucleated RBC % 0.0 Absolute Neutrophils 3.19 Absolute Lymphocytes 4.78 H Absolute Monocytes 0.80 Absolute Eosinophils 0.21 Absolute Basophils 0.05 Sodium 139 140 Potassium 3.9 4.2 Chloride 102 106 Carbon Dioxide 25.6 26.1 Anion Gap 11.4 H 7.9 BUN 14 12 Creatinine 0.9 0.8 Est GFR (CKD-EPI 2020) 75.97 87.50 Glucose 99 97 Calcium 9.6 9.2 Magnesium 2.0 Total Bilirubin 0.7 AST 17 ALT 27 Alkaline Phosphatase 116 Troponin I 6 7 NT-Pro-B Natriuret Pep 37 Total Protein 8.0 Albumin 4.0 TSH 4.29 H Free T4 0.98 Stl C.difficile Tox PCR 08/16/25 08/16/25 08/17/25 06:18 08:38 06:45 WBC 7.47 RBC 4.57 Hgb 13.7 Hct 41.0 MCV 90 MCH 30.0 MCHC 33.4 RDW 13.4 Plt Count 298 MPV 9.9 Immature Gran % 0.3 Neutrophils % 52.6 Lymphocytes % 36.8 Monocytes % 7.1 Eosinophils % 2.5 Basophils % 0.7 Nucleated RBC % 0.0 Absolute Neutrophils 3.93 Absolute Lymphocytes 2.75 Absolute Monocytes 0.53 Absolute Eosinophils 0.19 Absolute Basophils 0.05 Sodium 139 Potassium 4.3 Chloride 104 Carbon Dioxide 25.9 Anion Gap 9.1 BUN 14 Creatinine 0.8 Est GFR (CKD-EPI 2020) 87.50 Glucose 93 Calcium 8.7 Magnesium Total Bilirubin 0.6 AST 14 L ALT 23 Alkaline Phosphatase 106 Troponin I 12 NT-Pro-B Natriuret Pep Total Protein 7.5 Albumin 3.6 TSH Free T4 Stl C.difficile Tox PCR Negative PFSH All Active Problems (Updated 08/16/25 @ 05:28 by Jorge Redmond DO) Atrial fibrillation with RVR (Acute) Derangement of posterior horn of medial meniscus due to old tear or injury, right knee (Acute) Osteoarthritis of right knee (Acute) Diastasis of rectus abdominis (Acute) Foot pain, bilateral (Acute) Cervicalgia (Acute) Osteoporosis (Chronic) Heart murmur (Acute) Arthritis (Acute) Dizziness (Acute) Arm pain, left (Acute) Kidney stone on left side (Acute) Primary osteoarthritis of left knee (Acute) Synvisc injection: 01/01/2021 Basal cell carcinoma (Acute) nose, removed at [facility] derm December 2019 Saul's disease (Acute) Atypical chest pain (Acute) DVT prophylaxis (Acute) Obesity (Chronic) Anxiety (Chronic) Diet-controlled type 2 diabetes mellitus (Chronic) KARMEN (obstructive sleep apnea) (Chronic) Headache (Acute) Family history of early CAD (Acute) Internal derangement of right knee (Acute) Benign hypertension (Acute 05/24/13) Medical History Otalgia of both ears Paroxysmal A-fib GERD (gastroesophageal reflux disease) Surgical History Hx of colonoscopy Hx of salpingo-oophorectomy, bilateral H/O right wrist surgery S/P hysterectomy Partial 2017 Finished hysterectomy 05/2021 Cholecystectomy Family History Mother Heart disease OR at 47 Diabetes Hypertension Breast cancer Anxiety Congestive heart failure Cataracts, bilateral Myocardial infarction Osteoporosis Arthritis GERD (gastroesophageal reflux disease) Maternal Grandmother Heart disease OR @47 Diabetes Hypertension Breast cancer Arthritis Cancer Congestive heart failure Myocardial infarction Osteoporosis Maternal Aunt Heart disease sudden at 54 Maternal Grandfather Stroke Brother Stroke Father Substance abuse Social History Smoking/Tobacco Use Status: Former Tobacco Use Smoking risk assessment performed?: Yes Alcohol Intake: current Alcohol Intake frequency: holidays/special occasions only Drug use: Never Substance use type: does not use Housing: house Pets and animals: Yes (3 cats, 1 dog ) Pets and animals: cat(s) and dog(s) Current gender identity: female Do you feel safe at home: Yes Do you feel safe in your relationship?: Yes Female Reproductive History Menstrual Menopause type: surgical History History 3 Para 2 Hx # Term Pregnancies Multiple births Hx # Pregnancies Ectopic pregnancies AB induced Hx Number of Living Children AB spontaneous Time Spent with Patient Time Spent with Patient: 45-69 minutes Time was spent: preparing to see the patient(eg.review tests), obtaining and/or reviewing separately otained hiistory, ordering medications,tests, procedures, referring, communicating with other health nonfarm animal caretaker, indepentently interpreting results, counseling the patient and care coordination
--- NOTE | 2025-08-17 10:13 | PDOC.CMDIS ---
Date of service: 08/17/25 Time of Service: 10:13 LACE Index Scoring Tool Questions: Length of Stay (in days): 1 Was the patient admitted via the E.D.?: Yes Comorbidities: Diabetes w/o Complication and Chronic Pulmonary Disease E.D. Visits: 2 Answers: Total Score: 9 Risk of Readmission: Low Risk Care Management Discharge Plan Reason for Hospitalization: Afib Discharge Plan: Jimena will be discharged home with no new services. She will follow up with both her Warehouse Distribution Associate and her PCP and will transport with family. Patient/Family Education Needs: Review discharge instructions, limitations, follow up plan and discuss Ask Me Three
[2025-08-17] MEDS: Ondansetron O.D.T. 4 MG TABEF PO (10:35)
== END 2025-08-17 11:00 | disposition home or self-care (01) | DRG 309 ==
LOC: ER 05:37 → ICU 05:51
PROVIDERS: Admitting Provider Hospitalist; Emergency Provider Student in an Organized Health Care Education/Training Program; PCP Naturopath; Responsible Provider Family Medicine; Visit Provider Hospitalist
DX: I48.0 Paroxysmal atrial fibrillation (principal); Z68.42 Body mass index [BMI] 45.0-49.9, adult; E06.3 Autoimmune thyroiditis; E11.9 Type 2 diabetes mellitus without complications; M81.0 Age-related osteoporosis without current pathological fracture; N20.0 Calculus of kidney; M17.0 Bilateral primary osteoarthritis of knee; F41.9 Anxiety disorder, unspecified; G47.33 Obstructive sleep apnea (adult) (pediatric); I10 Essential (primary) hypertension; K21.9 Gastro-esophageal reflux disease without esophagitis; E66.9 Obesity, unspecified; Z82.49 Family history of ischemic heart disease and other diseases of the circulatory system; Z79.85 Long-term (current) use of injectable non-insulin antidiabetic drugs
CPT/HCPCS: 00123; 36415; 80048; 80053; 93005; 96365; 96366; 96368; 96375; 96376; 99291; 83735; 83880; 84439; 84443; 84484; 85025; 93010; 99222; 99239; J0283; J2470; J3480

== ENCOUNTER 2025-08-28 13:04 | Outpatient (REF) | payer BC, SELFPAY ==
[2025-08-29 20:15] LABS: Campylobacter PCR Negative (Negative); Shiga Toxin PCR Negative (Negative); Shigella/Enteroinvasive Ecoli Negative (Negative)
[2025-08-30 13:19] LABS: Helicobacter pylori Ag, Feces Negative (Negative)
== END 2025-08-28 13:05 | disposition home or self-care (01) ==
LOC: LBN 13:04
PROVIDERS: PCP Naturopath; Visit Provider Naturopath
DX: R10.13 Epigastric pain (principal); R10.12 Left upper quadrant pain; A09 Infectious gastroenteritis and colitis, unspecified
CPT/HCPCS: 87015; 87269; 87272; 87338; 87505